=== PATIENT | male | born 1960 | race Caucasian/White ===

== ENCOUNTER 2017-11-25 17:59 | Emergency (ER) | payer MEDICAID ==
[~2017-11-25] VITALS: Ht 188 cm; Wt 66.7 kg
[2017-11-25] MEDS ORDERED: OLAN5TAB5 PO (19:15)
[2017-11-25] MEDS ORDERED: ESCI5TAB PO (19:16)
[2017-11-25] MEDS ORDERED: FLUP1TAB PO (19:17)
[2017-11-25] MEDS ORDERED: LORA0.5T PO (19:19)
[2017-11-25 20:34] LABS: BASOPHILS % (AUTO) 0.4 % (0-1); EOSINOPHILS # (AUTO) 0.1 X10'3 (0-0.9); EOSINOPHILS % (AUTO) 2.1 % (0-6); HEMOGLOBIN 14.2 g/dl (14.0-17.9); LYMPHOCYTES # (AUTO) 0.8 X10'3 (1.1-4.8); LYMPHOCYTES % (AUTO) 11.1 % (21-51); MEAN CORPUSCULAR HEMOGLOBIN 31.6 PG (27.0-31.0); MEAN CORPUSCULAR HGB CONC 34.7 % (33.0-36.5); MONOCYTES # (AUTO) 0.5 X10'3 (0-0.9); MONOCYTES % (AUTO) 6.6 % (2-12); NEUTROPHILS # (AUTO) 5.4 X10'3 (1.8-7.7); NEUTROPHILS % (AUTO) 79.8 % (42-75); PLATELET COUNT 242 X10'3 (140-440); RED CELL DISTRIBUTION WIDTH 14.6 % (11.5-14.5); WHITE BLOOD COUNT 6.8 X10'3 (4.5-11.0)
[2017-11-25 20:47] LABS: ALANINE AMINOTRANSFERASE 53 U/L (12-78); ALBUMIN 3.4 G/DL (3.4-5.0); ALKALINE PHOSPHATASE 77 IU/L (46-116); ANION GAP 7 (8-16); ASPARTATE AMINO TRANSFERASE 34 U/L (10-37); BILIRUBIN,TOTAL 0.7 MG/DL (0.1-1.0); BLOOD UREA NITROGEN 18 MG/DL (7-18); BUN/CREATININE RATIO 15.9 (5.4-32.0); CALCIUM 9.1 MG/DL (8.5-10.1); CHLORIDE 104 MMOL/L (99-107); CREATININE 1.13 MG/DL (0.60-1.10); GLUCOSE 160 MG/DL (70-104); POTASSIUM 4.4 MMOL/L (3.5-5.1); SODIUM 143 MMOL/L (135-145); TOTAL CARBON DIOXIDE 31.8 MMOL/L (24-32); TOTAL PROTEIN 6.8 G/DL (6.4-8.2); eGFR 66 ML/MIN
[2017-11-25 20:55] LABS: ETHANOL < 0.010 GM/DL (0.0-0.010)
[2017-11-25] MEDS ORDERED: LORazepam 2 mg/ml vial IM ONE (21:40)
[2017-11-26 11:28] LABS: URINE AMPHETAMINE SCREEN NEGATIVE (Neg); URINE BARBITUATE SCREEN NEGATIVE (Neg); URINE BENZODIAZEPINES SCREEN NEGATIVE (Neg); URINE CANNABINOID SCREEN NEGATIVE (Neg); URINE COCAINE SCREEN NEGATIVE (Neg); URINE METHADONE SCREEN NEGATIVE (Neg); URINE OPIATE SCREEN NEGATIVE (Neg); URINE PHENCYCLIDINE SCREEN NEGATIVE (Neg)
[2017-11-26] MEDS ORDERED: LORazepam 2 mg/ml vial IM ONE ×2 (11:45→18:40)
[2017-11-26 13:04] LABS: CLARITY,URINE CLEAR (Clear); COLOR,URINE YELLOW (Yellow); GLUCOSE, URINE NEGATIVE (Neg); KETONES,URINE 15 mg/dl (Neg); LEUKOCYTE ESTERASE ,URINE NEGATIVE (Neg); NITRITES, URINE NEGATIVE (Neg); OCCULT BLOOD,URINE NEGATIVE (Neg); PH,URINE 5.5 (4.8-8.0); PROTEIN,URINE NEGATIVE (Neg); UROBILINOGEN,URINE 0.2 E.U/dL (0.2-1.0)
[2017-11-26 13:09] LABS: UA COLLECTION TYPE VOIDED
[2017-11-26 20:29] LABS: CKMB RELATIVE INDEX 12.4 RATIO (0-2.5)
[2017-11-27] MEDS ORDERED: normal saline 1000ML IV soln IVB ONE (10:50)
[2017-11-27] MEDS: normal saline 1000ml 1,000 ML IV SCH ×3 (13:59→21:10)
[2017-11-27] MEDS ORDERED: LORazepam 0.5 MG tablet PO PRN (17:15)
[2017-11-27 18:07] LABS: CLARITY,URINE SLIGHTLY CLOUDY (Clear); COLOR,URINE YELLOW (Yellow); GLUCOSE, URINE NEGATIVE (Neg); KETONES,URINE NEGATIVE (Neg); LEUKOCYTE ESTERASE ,URINE NEGATIVE (Neg); NITRITES, URINE NEGATIVE (Neg); OCCULT BLOOD,URINE SMALL (Neg); PROTEIN,URINE NEGATIVE (Neg); UA COLLECTION TYPE STRAIGHT CATH; UROBILINOGEN,URINE 0.2 E.U/dL (0.2-1.0)
[2017-11-27 18:19] LABS: MUCUS STRANDS MANY /LPF (Neg); SQUAMOUS EPITHELIAL CELL,UR FEW /LPF (FEW)
[2017-11-27 18:20] LABS: BACTERIA,URINE FEW /HPF (Neg); CAL OXALATE CRYSTALS 1+ /HPF (NEGATIVE); WBC CLUMPS,URINE FEW /HPF (NEGATIVE); WBC,URINE 0-4 /HPF (0-4)
[2017-11-27] MEDS: FLUPHENAZINE PO SCH (21:00)
[2017-11-28] MEDS: normal saline 1000ml 1,000 ML IV SCH ×3 (00:16→12:10)
[2017-11-28] MEDS ORDERED: citalopram 20mg tablet PO SCH (07:30)
[2017-11-28] MEDS: OLANZapine 5mg rapidly disint. tablet PO SCH (07:49)
[2017-11-28] MEDS: citalopram 20mg tablet PO SCH (07:49)
[2017-11-28] MEDS ORDERED: OLANZapine 5mg rapidly disint. tablet PO SCH (08:00)
[2017-11-28] MEDS: FLUPHENAZINE PO SCH (21:00)
[2017-11-29] MEDS: OLANZapine 5mg rapidly disint. tablet PO SCH (08:43)
[2017-11-29] MEDS: citalopram 20mg tablet PO SCH ×2 (08:55→09:01)
[2017-11-29] MEDS: LORazepam 0.5 MG tablet PO PRN (10:04)
[2017-11-30] MEDS: OLANZapine 5mg rapidly disint. tablet PO SCH (08:55)
[2017-11-30] MEDS: citalopram 20mg tablet PO SCH (08:55)
[2017-12-01] MEDS: OLANZapine 5mg rapidly disint. tablet PO SCH (08:51)
[2017-12-01] MEDS: citalopram 20mg tablet PO SCH (08:51)
[2017-12-02] MEDS: LORazepam 0.5 MG tablet PO PRN (08:29)
[2017-12-02] MEDS: citalopram 20mg tablet PO SCH (08:29)
[2017-12-03] MEDS: citalopram 20mg tablet PO SCH (07:30)
[2017-12-04 12:21] LABS: BASOPHILS % (AUTO) 0.3 % (0-1); EOSINOPHILS # (AUTO) 0.1 X10'3 (0-0.9); EOSINOPHILS % (AUTO) 2.3 % (0-6); HEMATOCRIT 46.4 % (42.0-52.0); HEMOGLOBIN 15.8 g/dl (14.0-17.9); LYMPHOCYTES % (AUTO) 19.2 % (21-51); MEAN CORPUSCULAR HGB CONC 33.9 % (33.0-36.5); MEAN CORPUSCULAR VOLUME 91.5 FL (78-98); MEAN PLATELET VOLUME 8.1 FL (7.4-10.4); MONOCYTES # (AUTO) 0.3 X10'3 (0-0.9); MONOCYTES % (AUTO) 5.4 % (2-12); NEUTROPHILS # (AUTO) 3.7 X10'3 (1.8-7.7); NEUTROPHILS % (AUTO) 72.8 % (42-75); PLATELET COUNT 258 X10'3 (140-440); RED BLOOD COUNT 5.08 X10'6 (4.70-6.10); WHITE BLOOD COUNT 5.1 X10'3 (4.5-11.0)
[2017-12-04 13:11] LABS: ALANINE AMINOTRANSFERASE 36 U/L (12-78); ALBUMIN 3.2 G/DL (3.4-5.0); ALBUMIN/GLOBULIN RATIO 1.1 (1.1-1.5); ALKALINE PHOSPHATASE 71 IU/L (46-116); ANION GAP 7 (8-16); ASPARTATE AMINO TRANSFERASE 24 U/L (10-37); BILIRUBIN,TOTAL 0.6 MG/DL (0.1-1.0); BLOOD UREA NITROGEN 12 MG/DL (7-18); BUN/CREATININE RATIO 12.4 (5.4-32.0); CALCIUM 8.9 MG/DL (8.5-10.1); CHLORIDE 106 MMOL/L (99-107); CREATININE 0.97 MG/DL (0.60-1.10); GLUCOSE 106 MG/DL (70-104); POTASSIUM 3.7 MMOL/L (3.5-5.1); SODIUM 143 MMOL/L (135-145); TOTAL CARBON DIOXIDE 30.2 MMOL/L (24-32); TOTAL PROTEIN 6.2 G/DL (6.4-8.2); eGFR 79 ML/MIN
[2017-12-04] MEDS ORDERED: LORazepam 2 mg/ml vial ONE (14:14)
[2017-12-04] MEDS ORDERED: normal saline 1000ml 1,000 ML IV ONE (15:50)
[2017-12-05] MEDS ORDERED: thiamine 100mg tablet PO ONE (08:10)
[2017-12-05] MEDS ORDERED: folic acid 1mg tablet PO ONE (08:10)
[2017-12-05] MEDS ORDERED: gadopentetate dimeglumine 7.5 MMOL/15 ML syringe ONE (13:59)
[2017-12-06] MEDS ORDERED: magnesium hydroxide 30ml (MOM) UD suspension PO ONE (02:00)
[2017-12-06] MEDS: LORazepam 2 mg/ml vial IV SCH ×4 (03:56→21:37)
[2017-12-06] MEDS ORDERED: thiamine 100mg tablet PO ONE (08:00)
[2017-12-06] MEDS ORDERED: folic acid 1mg tablet PO ONE (08:00)
[2017-12-07] MEDS: LORazepam 2 mg/ml vial IV SCH (08:00)
[2017-12-07] MEDS ORDERED: normal saline 1000ml 1,000 ML IV ONE (08:08)
[2017-12-07] MEDS ORDERED: normal saline 1000ML IV soln IVB ONE (08:10)
[2017-12-07] MEDS ORDERED: bisacodyl 10mg suppository rectal RC STA (09:45)
[2017-12-07 13:10] LABS: HEMATOCRIT 42.7 % (42.0-52.0); HEMOGLOBIN 14.8 g/dl (14.0-17.9); LYMPHOCYTES % (AUTO) 16.1 % (21-51); MEAN CORPUSCULAR HEMOGLOBIN 31.1 PG (27.0-31.0); MEAN CORPUSCULAR HGB CONC 34.6 % (33.0-36.5); MEAN CORPUSCULAR VOLUME 89.9 FL (78-98); MEAN PLATELET VOLUME 8.2 FL (7.4-10.4); MONOCYTES % (AUTO) 5.5 % (2-12); NEUTROPHILS % (AUTO) 76.9 % (42-75); PLATELET COUNT 219 X10'3 (140-440); RED BLOOD COUNT 4.74 X10'6 (4.70-6.10); RED CELL DISTRIBUTION WIDTH 14.9 % (11.5-14.5); WHITE BLOOD COUNT 5.1 X10'3 (4.5-11.0)
[2017-12-07 13:11] LABS: BASOPHILS % (AUTO) 0.1 % (0-1); EOSINOPHILS # (AUTO) 0.1 X10'3 (0-0.9); EOSINOPHILS % (AUTO) 1.4 % (0-6); LYMPHOCYTES # (AUTO) 0.8 X10'3 (1.1-4.8); MONOCYTES # (AUTO) 0.3 X10'3 (0-0.9); NEUTROPHILS # (AUTO) 3.9 X10'3 (1.8-7.7)
[2017-12-07 13:26] LABS: ALANINE AMINOTRANSFERASE 36 U/L (12-78); ALBUMIN 3.8 G/DL (3.4-5.0); ALBUMIN/GLOBULIN RATIO 1.2 (1.1-1.5); ALKALINE PHOSPHATASE 84 IU/L (46-116); ANION GAP 10 (8-16); ASPARTATE AMINO TRANSFERASE 28 U/L (10-37); BILIRUBIN,TOTAL 0.9 MG/DL (0.1-1.0); BLOOD UREA NITROGEN 16 MG/DL (7-18); BUN/CREATININE RATIO 18.8 (5.4-32.0); CALCIUM 9.2 MG/DL (8.5-10.1); CHLORIDE 104 MMOL/L (99-107); CREATININE 0.85 MG/DL (0.60-1.10); GLUCOSE 84 MG/DL (70-104); POTASSIUM 4.4 MMOL/L (3.5-5.1); SODIUM 142 MMOL/L (135-145); TOTAL CARBON DIOXIDE 28.1 MMOL/L (24-32); TOTAL PROTEIN 7.1 G/DL (6.4-8.2); eGFR > 90 ML/MIN
[2017-12-07 15:17] LABS: URINE AMPHETAMINE SCREEN NEGATIVE (Neg); URINE BARBITUATE SCREEN NEGATIVE (Neg); URINE BENZODIAZEPINES SCREEN NEGATIVE (Neg); URINE CANNABINOID SCREEN NEGATIVE (Neg); URINE COCAINE SCREEN NEGATIVE (Neg); URINE METHADONE SCREEN NEGATIVE (Neg); URINE OPIATE SCREEN NEGATIVE (Neg); URINE PHENCYCLIDINE SCREEN NEGATIVE (Neg)
[2017-12-09] MEDS: tobramycin 0.3% 5ml ophthalmic drops LEFTEYE SCH ×4 (08:35→20:00)
[2017-12-09] MEDS: LORazepam 0.5 MG tablet PO PRN (09:03)
[2017-12-10] MEDS: tobramycin 0.3% 5ml ophthalmic drops LEFTEYE SCH ×6 (00:17→20:21)
[2017-12-10 01:21] LABS: BASOPHILS % (AUTO) 0.5 % (0-1); EOSINOPHILS # (AUTO) 0.1 X10'3 (0-0.9); EOSINOPHILS % (AUTO) 2.2 % (0-6); HEMATOCRIT 42.1 % (42.0-52.0); LYMPHOCYTES # (AUTO) 1.1 X10'3 (1.1-4.8); LYMPHOCYTES % (AUTO) 16.8 % (21-51); MEAN CORPUSCULAR HEMOGLOBIN 30.4 PG (27.0-31.0); MEAN CORPUSCULAR HGB CONC 33.3 % (33.0-36.5); MEAN CORPUSCULAR VOLUME 91.2 FL (78-98); MEAN PLATELET VOLUME 8.7 FL (7.4-10.4); MONOCYTES # (AUTO) 0.5 X10'3 (0-0.9); MONOCYTES % (AUTO) 8.1 % (2-12); NEUTROPHILS # (AUTO) 4.6 X10'3 (1.8-7.7); NEUTROPHILS % (AUTO) 72.4 % (42-75); PLATELET COUNT 237 X10'3 (140-440); RED BLOOD COUNT 4.61 X10'6 (4.70-6.10); RED CELL DISTRIBUTION WIDTH 14.1 % (11.5-14.5); WHITE BLOOD COUNT 6.3 X10'3 (4.5-11.0)
[2017-12-10 01:23] LABS: CLARITY,URINE CLEAR (Clear); COLOR,URINE YELLOW (Yellow); GLUCOSE, URINE NEGATIVE (Neg); KETONES,URINE >=80 mg/dl (Neg); LEUKOCYTE ESTERASE ,URINE NEGATIVE (Neg); NITRITES, URINE NEGATIVE (Neg); OCCULT BLOOD,URINE SMALL (Neg); PROTEIN,URINE NEGATIVE (Neg); UROBILINOGEN,URINE 0.2 E.U/dL (0.2-1.0)
[2017-12-10 01:25] LABS: UA COLLECTION TYPE OTHER
[2017-12-10 01:31] LABS: BACTERIA,URINE FEW /HPF (Neg); MUCUS STRANDS MODERATE /LPF (Neg); SQUAMOUS EPITHELIAL CELL,UR FEW /LPF (FEW)
[2017-12-10 01:32] LABS: RBC,URINE 0-2 /HPF (0-2)
[2017-12-10] MEDS: ciprofloxacin 250mg tablet PO SCH ×3 (08:00→20:20)
[2017-12-10] MEDS: LORazepam 0.5 MG tablet PO PRN (09:29)
[2017-12-10] MEDS: acetaminophen 325mg tablet PO PRN (09:31)
[2017-12-10] MEDS: lactobacillus rhamnosus 10,000 MMU CELLS/CAPSULE PO SCH (20:20)
[2017-12-11] MEDS: tobramycin 0.3% 5ml ophthalmic drops LEFTEYE SCH ×6 (04:20→20:47)
[2017-12-11] MEDS: Protein Shake (high protein) 240ml (8oz) cup PO SCH ×3 (08:00→18:00)
[2017-12-11] MEDS: ciprofloxacin 250mg tablet PO SCH ×3 (08:30→20:47)
[2017-12-11] MEDS: LORazepam 0.5 MG tablet PO PRN ×2 (08:30→14:01)
[2017-12-11] MEDS: lactobacillus rhamnosus 10,000 MMU CELLS/CAPSULE PO SCH ×3 (08:30→20:47)
[2017-12-11] MEDS: nystatin 500,000 unit/5ML UD oral suspension PO SCH (22:04)
[2017-12-12] MEDS: tobramycin 0.3% 5ml ophthalmic drops LEFTEYE SCH ×6 (03:37→20:49)
[2017-12-12] MEDS ORDERED: LORazepam 2 mg/ml vial IM ONE (04:15)
[2017-12-12] MEDS: ciprofloxacin 250mg tablet PO SCH ×2 (12:55→20:00)
[2017-12-12] MEDS: nystatin 500,000 unit/5ML UD oral suspension PO SCH ×3 (12:55→20:49)
[2017-12-12] MEDS: lactobacillus rhamnosus 10,000 MMU CELLS/CAPSULE PO SCH ×2 (12:55→20:00)
[2017-12-12] MEDS: Protein Shake (high protein) 240ml (8oz) cup PO SCH ×3 (12:56→18:00)
[2017-12-12 23:33] LABS: BASOPHILS % (AUTO) 0.7 % (0-1); EOSINOPHILS # (AUTO) 0.1 X10'3 (0-0.9); EOSINOPHILS % (AUTO) 1.5 % (0-6); HEMATOCRIT 43.5 % (42.0-52.0); HEMOGLOBIN 14.9 g/dl (14.0-17.9); LYMPHOCYTES # (AUTO) 1.3 X10'3 (1.1-4.8); LYMPHOCYTES % (AUTO) 18.3 % (21-51); MEAN CORPUSCULAR HEMOGLOBIN 31.2 PG (27.0-31.0); MEAN CORPUSCULAR HGB CONC 34.4 % (33.0-36.5); MEAN CORPUSCULAR VOLUME 90.7 FL (78-98); MEAN PLATELET VOLUME 8.1 FL (7.4-10.4); MONOCYTES # (AUTO) 0.5 X10'3 (0-0.9); MONOCYTES % (AUTO) 7.2 % (2-12); NEUTROPHILS # (AUTO) 5.2 X10'3 (1.8-7.7); NEUTROPHILS % (AUTO) 72.3 % (42-75); PLATELET COUNT 217 X10'3 (140-440); RED BLOOD COUNT 4.79 X10'6 (4.70-6.10); RED CELL DISTRIBUTION WIDTH 14.8 % (11.5-14.5); WHITE BLOOD COUNT 7.2 X10'3 (4.5-11.0)
[2017-12-12 23:45] LABS: ALANINE AMINOTRANSFERASE 36 U/L (12-78); ALBUMIN 3.8 G/DL (3.4-5.0); ALBUMIN/GLOBULIN RATIO 1.2 (1.1-1.5); ALKALINE PHOSPHATASE 74 IU/L (46-116); ANION GAP 12 (8-16); ASPARTATE AMINO TRANSFERASE 34 U/L (10-37); BILIRUBIN,TOTAL 0.8 MG/DL (0.1-1.0); BLOOD UREA NITROGEN 21 MG/DL (7-18); BUN/CREATININE RATIO 21.4 (5.4-32.0); CALCIUM 9.3 MG/DL (8.5-10.1); CHLORIDE 104 MMOL/L (99-107); CREATININE 0.98 MG/DL (0.60-1.10); GLUCOSE 89 MG/DL (70-104); POTASSIUM 3.7 MMOL/L (3.5-5.1); SODIUM 144 MMOL/L (135-145); TOTAL CARBON DIOXIDE 28.3 MMOL/L (24-32); TOTAL PROTEIN 6.9 G/DL (6.4-8.2); eGFR 78 ML/MIN
[2017-12-13] MEDS: tobramycin 0.3% 5ml ophthalmic drops LEFTEYE SCH ×6 (00:05→20:00)
[2017-12-13] MEDS ORDERED: Potassium Cl inj 20 MEQ in dextrose 5%-1/2 normal saline 1,000 ML IV ONE (00:28)
[2017-12-13] MEDS: potassium CL 20mEq in D5-1/2NS 1,000 ML IV SCH ×2 (01:56→16:08)
[2017-12-13] MEDS ORDERED: thiamine 100mg/ml 2ml inj. IV STA (12:46)
[2017-12-13] MEDS: nystatin 500,000 unit/5ML UD oral suspension PO SCH ×3 (13:00→21:16)
[2017-12-13] MEDS: Protein Shake (high protein) 240ml (8oz) cup PO SCH ×3 (13:00→18:00)
[2017-12-13] MEDS: ciprofloxacin 250mg tablet PO SCH ×2 (14:14→20:00)
[2017-12-13] MEDS: lactobacillus rhamnosus 10,000 MMU CELLS/CAPSULE PO SCH ×2 (14:16→20:00)
[2017-12-13] MEDS ORDERED: folic acid 1mg/0.2ml inj IV ONE ×2 (16:00→17:00)
[2017-12-13] MEDS ORDERED: folic acid 1mg/0.2ml inj IV SCH (16:00)
[2017-12-13] MEDS ORDERED: LIDOcaine 1.5% w/epinephrine 1:200,000 5ml ampul SQ ONE (20:25)
[2017-12-13] MEDS: thiamine 100mg/ml 2ml inj. IV SCH (21:16)
[2017-12-13 22:29] LABS: APPEARANCE,CSF CLEAR; CSF SUPERNATANT COLOR COLORLESS; CSF VOLUME 15 ML; TUBE# COUNTED 1
[2017-12-13 22:30] LABS: CSF RBC 0 /CU MM (0)
[2017-12-13 22:32] LABS: CSF WBC CT 4 /CU MM (0-5)
[2017-12-13 22:34] LABS: APPEARANCE,CSF CLEAR; CSF RBC 0 /CU MM (0); CSF SUPERNATANT COLOR COLORLESS; CSF VOLUME 15 ML; TUBE# COUNTED 4
[2017-12-13 22:48] LABS: GLUCOSE,CSF 77 MG/DL (40-75); TOTAL PROTEIN,CSF 98 MG/DL (15-45)
[2017-12-13 22:54] LABS: CSF WBC CT 8 /CU MM (0-5)
[2017-12-14] MEDS ORDERED: diphenhydrAMINE 50 mg/ml inj IV ONE (02:05)
[2017-12-14] MEDS: potassium CL 20mEq in D5-1/2NS 1,000 ML IV SCH ×2 (02:23→15:00)
[2017-12-14] MEDS: tobramycin 0.3% 5ml ophthalmic drops LEFTEYE SCH ×7 (04:00→23:50)
[2017-12-14 07:12] LABS: HIV ANTIBODY 1&2 RAPID NON-REACTIVE (Neg)
[2017-12-14] MEDS: Protein Shake (high protein) 240ml (8oz) cup PO SCH ×3 (08:00→18:00)
[2017-12-14] MEDS: folic acid 1mg/0.2ml inj IV SCH (08:51)
[2017-12-14] MEDS: thiamine 100mg/ml 2ml inj. IV SCH ×2 (08:51→20:51)
[2017-12-14] MEDS: nystatin 500,000 unit/5ML UD oral suspension PO SCH ×3 (09:03→20:50)
[2017-12-14] MEDS ORDERED: folic acid 1mg/0.2ml inj IV ONE (13:00)
[2017-12-14] MEDS ORDERED: bisacodyl 10mg suppository rectal RC ONE (22:30)
[2017-12-15] MEDS: potassium CL 20mEq in D5-1/2NS 1,000 ML IV SCH ×2 (03:06→15:47)
[2017-12-15] MEDS: tobramycin 0.3% 5ml ophthalmic drops LEFTEYE SCH ×5 (03:46→20:59)
[2017-12-15] MEDS: Protein Shake (high protein) 240ml (8oz) cup PO SCH ×3 (08:00→19:47)
[2017-12-15] MEDS: nystatin 500,000 unit/5ML UD oral suspension PO SCH ×3 (09:25→21:00)
[2017-12-15] MEDS: folic acid 1mg/0.2ml inj IV SCH (09:26)
[2017-12-15] MEDS: thiamine 100mg/ml 2ml inj. IV SCH ×2 (09:26→21:22)
[2017-12-15] MEDS ORDERED: diphenhydrAMINE 50 mg/ml inj IV STA (22:29)
[2017-12-15] MEDS ORDERED: diphenhydrAMINE 50 mg/ml inj IV ONE (22:45)
[2017-12-15] MEDS ORDERED: QUEtiapine 25mg tablet PO ONE (23:41)
[2017-12-16] MEDS: potassium CL 20mEq in D5-1/2NS 1,000 ML IV SCH ×2 (03:40→16:41)
[2017-12-16] MEDS: tobramycin 0.3% 5ml ophthalmic drops LEFTEYE SCH ×6 (04:02→20:00)
[2017-12-16] MEDS ORDERED: dextrose 5%-normal saline 1,000 ML IV ONE (04:40)
[2017-12-16] MEDS: Protein Shake (high protein) 240ml (8oz) cup PO SCH ×3 (08:00→18:00)
[2017-12-16] MEDS: folic acid 1mg/0.2ml inj IV SCH (09:34)
[2017-12-16] MEDS: nystatin 500,000 unit/5ML UD oral suspension PO SCH ×3 (09:34→22:11)
[2017-12-16] MEDS: thiamine 100mg/ml 2ml inj. IV SCH ×2 (09:34→22:24)
[2017-12-16] MEDS ORDERED: acetaminophen 325mg tablet PO ONE (10:15)
[2017-12-16] MEDS ORDERED: diphenhydrAMINE 50 mg/ml inj IV ONE (14:25)
[2017-12-16] MEDS ORDERED: nicotine prolacrilex 2mg gum BC PRN (21:10)
[2017-12-16] MEDS ORDERED: nicotine prolacrilex 4mg gum BC PRN (21:10)
[2017-12-17] MEDS: tobramycin 0.3% 5ml ophthalmic drops LEFTEYE SCH ×6 (00:42→21:17)
[2017-12-17 00:47] LABS: ALBUMIN 3.5 G/DL (3.4-5.0); ANION GAP 6 (8-16); BLOOD UREA NITROGEN 6 MG/DL (7-18); BUN/CREATININE RATIO 7.1 (5.4-32.0); CALCIUM 9.1 MG/DL (8.5-10.1); CHLORIDE 105 MMOL/L (99-107); CREATININE 0.85 MG/DL (0.60-1.10); GLUCOSE 96 MG/DL (70-104); POTASSIUM 4.2 MMOL/L (3.5-5.1); SODIUM 142 MMOL/L (135-145); TOTAL CARBON DIOXIDE 30.9 MMOL/L (24-32); eGFR > 90 ML/MIN
[2017-12-17 01:00] LABS: BASOPHILS # (AUTO) 0.1 X10'3 (0-0.2); BASOPHILS % (AUTO) 0.9 % (0-1); EOSINOPHILS # (AUTO) 0.3 X10'3 (0-0.9); EOSINOPHILS % (AUTO) 4.2 % (0-6); HEMATOCRIT 42.6 % (42.0-52.0); HEMOGLOBIN 14.1 g/dl (14.0-17.9); LYMPHOCYTES # (AUTO) 1.5 X10'3 (1.1-4.8); LYMPHOCYTES % (AUTO) 24.7 % (21-51); MEAN CORPUSCULAR HEMOGLOBIN 30.4 PG (27.0-31.0); MEAN CORPUSCULAR HGB CONC 33.1 % (33.0-36.5); MEAN CORPUSCULAR VOLUME 91.7 FL (78-98); MEAN PLATELET VOLUME 9.2 FL (7.4-10.4); MONOCYTES # (AUTO) 0.5 X10'3 (0-0.9); MONOCYTES % (AUTO) 7.6 % (2-12); NEUTROPHILS # (AUTO) 3.6 X10'3 (1.8-7.7); NEUTROPHILS % (AUTO) 62.6 % (42-75); PLATELET COUNT 198 X10'3 (140-440); RED BLOOD COUNT 4.64 X10'6 (4.70-6.10)
[2017-12-17 02:14] LABS: PLATELET ESTIMATE NORMAL; TOTAL CELLS COUNTED 100
[2017-12-17 06:03] LABS: RPR Reactive (Non Reactive)
[2017-12-17] MEDS: potassium CL 20mEq in D5-1/2NS 1,000 ML IV SCH ×2 (08:07→20:47)
[2017-12-17] MEDS: thiamine 100mg/ml 2ml inj. IV SCH ×2 (08:21→21:16)
[2017-12-17] MEDS: folic acid 1mg/0.2ml inj IV SCH (08:22)
[2017-12-17] MEDS: nystatin 500,000 unit/5ML UD oral suspension PO SCH ×3 (08:23→21:16)
[2017-12-17] MEDS: acetaminophen 325mg tablet PO PRN ×2 (08:23→13:28)
[2017-12-17] MEDS: Protein Shake (high protein) 240ml (8oz) cup PO SCH ×3 (08:24→18:00)
[2017-12-18] MEDS: tobramycin 0.3% 5ml ophthalmic drops LEFTEYE SCH ×6 (00:33→20:52)
[2017-12-18 08:30] LABS: RPR Non Reactive (Non Reactive)
[2017-12-18] MEDS: thiamine 100mg/ml 2ml inj. IV SCH ×2 (08:49→20:52)
[2017-12-18] MEDS: folic acid 1mg/0.2ml inj IV SCH (08:50)
[2017-12-18] MEDS: potassium CL 20mEq in D5-1/2NS 1,000 ML IV SCH ×2 (09:10→22:15)
[2017-12-18] MEDS: Protein Shake (high protein) 240ml (8oz) cup PO SCH ×3 (10:00→18:00)
[2017-12-18] MEDS: nystatin 500,000 unit/5ML UD oral suspension PO SCH ×3 (10:36→20:51)
[2017-12-19] MEDS: tobramycin 0.3% 5ml ophthalmic drops LEFTEYE SCH ×7 (04:00→23:09)
[2017-12-19 07:12] LABS: D-DIMER 1.31 MG/L FEU (0-0.50)
[2017-12-19] MEDS ORDERED: normal saline 1000ml 1,000 ML IV ONE (07:35)
[2017-12-19] MEDS ORDERED: iohexol 350MG/ML 100ml bottle IV ONE (07:49)
[2017-12-19] MEDS: Protein Shake (high protein) 240ml (8oz) cup PO SCH ×3 (08:00→18:42)
[2017-12-19] MEDS ORDERED: LORazepam 2 mg/ml vial IV ONE (08:05)
[2017-12-19] MEDS: thiamine 100mg/ml 2ml inj. IV SCH ×2 (10:18→19:55)
[2017-12-19] MEDS: nystatin 500,000 unit/5ML UD oral suspension PO SCH ×3 (10:19→23:08)
[2017-12-19] MEDS: potassium CL 20mEq in D5-1/2NS 1,000 ML IV SCH ×2 (10:25→19:46)
[2017-12-19] MEDS: folic acid 1mg/0.2ml inj IV SCH (11:01)
[2017-12-20] MEDS: tobramycin 0.3% 5ml ophthalmic drops LEFTEYE SCH ×5 (04:10→21:25)
[2017-12-20] MEDS: potassium CL 20mEq in D5-1/2NS 1,000 ML IV SCH ×2 (07:40→20:10)
[2017-12-20] MEDS: thiamine 100mg/ml 2ml inj. IV SCH ×2 (07:58→21:25)
[2017-12-20] MEDS: nystatin 500,000 unit/5ML UD oral suspension PO SCH ×2 (07:58→14:03)
[2017-12-20] MEDS: folic acid 1mg/0.2ml inj IV SCH (07:59)
[2017-12-20] MEDS: Protein Shake (high protein) 240ml (8oz) cup PO SCH ×4 (08:00→20:10)
[2017-12-20] MEDS ORDERED: bisacodyl 5mg tablet.DR PO ONE (09:30)
[2017-12-20] MEDS: acetaminophen 325mg tablet PO PRN (15:34)
[2017-12-21] MEDS: tobramycin 0.3% 5ml ophthalmic drops LEFTEYE SCH ×3 (00:30→07:54)
[2017-12-21] MEDS: Protein Shake (high protein) 240ml (8oz) cup PO SCH (07:51)
[2017-12-21] MEDS: thiamine 100mg/ml 2ml inj. IV SCH ×2 (07:52→20:15)
[2017-12-21] MEDS: folic acid 1mg/0.2ml inj IV SCH (07:53)
[2017-12-21] MEDS ORDERED: haloperidol 5mg tablet PO ONE (08:15)
[2017-12-21] MEDS: potassium CL 20mEq in D5-1/2NS 1,000 ML IV SCH ×2 (09:14→21:14)
[2017-12-22] MEDS: Protein Shake (high protein) 240ml (8oz) cup PO SCH ×3 (08:13→18:00)
[2017-12-22] MEDS: thiamine 100mg tablet PO SCH ×2 (08:16→20:55)
[2017-12-22] MEDS: folic acid 1mg tablet PO SCH ×2 (08:16→20:55)
[2017-12-22] MEDS: potassium CL 20mEq in D5-1/2NS 1,000 ML IV SCH ×2 (10:13→23:35)
[2017-12-23] MEDS: thiamine 100mg tablet PO SCH ×2 (08:00→20:00)
[2017-12-23] MEDS: folic acid 1mg tablet PO SCH ×2 (08:00→20:00)
[2017-12-23] MEDS: Protein Shake (high protein) 240ml (8oz) cup PO SCH ×3 (08:00→18:47)
[2017-12-23] MEDS: acetaminophen 325mg tablet PO PRN ×2 (09:07→16:56)
[2017-12-23] MEDS: potassium CL 20mEq in D5-1/2NS 1,000 ML IV SCH ×2 (10:40→16:55)
[2017-12-23] MEDS ORDERED: LORazepam 2 mg/ml vial IV ONE (20:45)
[2017-12-24] MEDS: potassium CL 20mEq in D5-1/2NS 1,000 ML IV SCH ×2 (06:39→19:17)
[2017-12-24] MEDS: thiamine 100mg tablet PO SCH ×2 (08:33→20:25)
[2017-12-24] MEDS: Protein Shake (high protein) 240ml (8oz) cup PO SCH ×3 (08:33→18:05)
[2017-12-24] MEDS: folic acid 1mg tablet PO SCH ×2 (08:33→20:25)
[2017-12-24] MEDS: docusate sodium 100mg/10ml UD cup PO SCH ×2 (12:14→20:25)
[2017-12-24] MEDS: acetaminophen 325mg/10.15ml oral unit dose solution PO PRN (12:15)
[2017-12-25] MEDS: folic acid 1mg tablet PO SCH ×2 (07:50→19:32)
[2017-12-25] MEDS: thiamine 100mg tablet PO SCH ×2 (07:50→19:32)
[2017-12-25] MEDS: potassium CL 20mEq in D5-1/2NS 1,000 ML IV SCH (07:54)
[2017-12-25] MEDS: docusate sodium 100mg/10ml UD cup PO SCH ×2 (07:55→19:32)
[2017-12-25] MEDS: Protein Shake (high protein) 240ml (8oz) cup PO SCH ×3 (08:00→18:00)
[2017-12-25] MEDS ORDERED: quetiapine 100mg tablet PO STA (22:58)
[2017-12-26] MEDS: potassium CL 20mEq in D5-1/2NS 1,000 ML IV SCH ×2 (01:08→13:57)
[2017-12-26] MEDS: Protein Shake (high protein) 240ml (8oz) cup PO SCH ×3 (09:00→18:29)
[2017-12-26] MEDS: docusate sodium 100mg/10ml UD cup PO SCH ×2 (09:32→20:32)
[2017-12-26] MEDS: thiamine 100mg tablet PO SCH ×2 (09:32→20:32)
[2017-12-26] MEDS: folic acid 1mg tablet PO SCH ×2 (09:32→20:32)
[2017-12-26] MEDS: OLANZapine 5mg rapidly disint. tablet PO SCH ×2 (14:44→20:33)
[2017-12-26] MEDS: quetiapine 100mg tablet PO SCH (20:33)
[2017-12-27] MEDS: potassium CL 20mEq in D5-1/2NS 1,000 ML IV SCH (02:19)
[2017-12-27] MEDS: Protein Shake (high protein) 240ml (8oz) cup PO SCH ×3 (08:00→18:00)
[2017-12-27] MEDS: OLANZapine 5mg rapidly disint. tablet PO SCH ×2 (11:43→21:22)
[2017-12-27] MEDS: thiamine 100mg tablet PO SCH ×2 (11:43→19:12)
[2017-12-27] MEDS: folic acid 1mg tablet PO SCH ×2 (11:43→19:12)
[2017-12-27] MEDS: docusate sodium 100mg/10ml UD cup PO SCH ×2 (12:09→19:11)
[2017-12-27] MEDS: quetiapine 100mg tablet PO SCH (21:22)
[2017-12-28] MEDS: Protein Shake (high protein) 240ml (8oz) cup PO SCH ×3 (08:00→18:41)
[2017-12-28] MEDS: acetaminophen 325mg tablet PO PRN (11:22)
[2017-12-28] MEDS: docusate sodium 100mg/10ml UD cup PO SCH ×2 (11:23→20:28)
[2017-12-28] MEDS: folic acid 1mg tablet PO SCH ×2 (11:23→20:28)
[2017-12-28] MEDS: OLANZapine 5mg rapidly disint. tablet PO SCH ×2 (11:23→20:27)
[2017-12-28] MEDS: thiamine 100mg tablet PO SCH ×2 (11:23→20:27)
[2017-12-28] MEDS: quetiapine 100mg tablet PO SCH (20:27)
[2017-12-29] MEDS: OLANZapine 5mg rapidly disint. tablet PO SCH ×2 (08:25→19:53)
[2017-12-29] MEDS: folic acid 1mg tablet PO SCH ×2 (08:25→19:53)
[2017-12-29] MEDS: thiamine 100mg tablet PO SCH ×2 (08:25→19:53)
[2017-12-29] MEDS: Protein Shake (high protein) 240ml (8oz) cup PO SCH ×3 (08:25→18:04)
[2017-12-29] MEDS: docusate sodium 100mg/10ml UD cup PO SCH ×2 (08:25→19:53)
[2017-12-29] MEDS: bisacodyl 10mg suppository rectal RC PRN (11:28)
[2017-12-29] MEDS: quetiapine 100mg tablet PO SCH (19:53)
[2017-12-30] MEDS: folic acid 1mg tablet PO SCH ×2 (08:42→20:06)
[2017-12-30] MEDS: Protein Shake (high protein) 240ml (8oz) cup PO SCH ×3 (08:42→18:21)
[2017-12-30] MEDS: thiamine 100mg tablet PO SCH ×2 (08:42→20:06)
[2017-12-30] MEDS: OLANZapine 5mg rapidly disint. tablet PO SCH ×2 (08:42→20:06)
[2017-12-30] MEDS: docusate sodium 100mg/10ml UD cup PO SCH ×2 (08:42→20:06)
[2017-12-30] MEDS: quetiapine 100mg tablet PO SCH (20:06)
[2017-12-31] MEDS: QUEtiapine 25mg tablet PO SCH (10:18)
[2017-12-31] MEDS: thiamine 100mg tablet PO SCH ×2 (10:19→21:14)
[2017-12-31] MEDS: folic acid 1mg tablet PO SCH ×2 (10:19→20:00)
[2017-12-31] MEDS: OLANZapine 5mg rapidly disint. tablet PO SCH ×2 (10:19→21:13)
[2017-12-31] MEDS: docusate sodium 100mg/10ml UD cup PO SCH ×2 (10:19→21:13)
[2017-12-31] MEDS: Protein Shake (high protein) 240ml (8oz) cup PO SCH ×3 (10:20→18:00)
[2017-12-31] MEDS: acetaminophen 325mg tablet PO PRN (21:13)
[2017-12-31] MEDS: quetiapine 100mg tablet PO SCH (21:13)
[2018-01-01] MEDS: folic acid 1mg tablet PO SCH ×2 (08:36→20:04)
[2018-01-01] MEDS: docusate sod 100mg capsule PO SCH ×2 (08:37→20:04)
[2018-01-01] MEDS: QUEtiapine 25mg tablet PO SCH (08:43)
[2018-01-01] MEDS: OLANZapine 5mg rapidly disint. tablet PO SCH ×2 (08:43→20:04)
[2018-01-01] MEDS: Protein Shake (high protein) 240ml (8oz) cup PO SCH ×3 (08:44→19:18)
[2018-01-01] MEDS: thiamine 100mg tablet PO SCH ×2 (08:44→20:04)
[2018-01-01] MEDS: haloperidol 5mg tablet PO SCH ×3 (09:15→21:00)
[2018-01-01] MEDS: quetiapine 100mg tablet PO SCH (20:05)
[2018-01-02] MEDS: Protein Shake (high protein) 240ml (8oz) cup PO SCH ×3 (08:00→18:47)
[2018-01-02] MEDS: docusate sod 100mg capsule PO SCH ×2 (08:58→21:55)
[2018-01-02] MEDS: thiamine 100mg tablet PO SCH ×2 (08:58→21:55)
[2018-01-02] MEDS: OLANZapine 5mg rapidly disint. tablet PO SCH ×2 (08:58→21:56)
[2018-01-02] MEDS: QUEtiapine 25mg tablet PO SCH (08:59)
[2018-01-02] MEDS: folic acid 1mg tablet PO SCH ×2 (08:59→20:00)
[2018-01-02] MEDS: quetiapine 100mg tablet PO SCH (21:56)
[2018-01-02] MEDS: haloperidol 5mg tablet PO SCH (21:56)
[2018-01-03] MEDS: thiamine 100mg tablet PO SCH ×2 (07:32→21:36)
[2018-01-03] MEDS: haloperidol 5mg tablet PO SCH ×2 (07:32→21:36)
[2018-01-03] MEDS: folic acid 1mg tablet PO SCH ×2 (07:32→21:36)
[2018-01-03] MEDS: QUEtiapine 25mg tablet PO SCH (07:33)
[2018-01-03] MEDS: OLANZapine 5mg rapidly disint. tablet PO SCH ×2 (07:33→21:37)
[2018-01-03] MEDS: docusate sod 100mg capsule PO SCH ×2 (07:34→21:36)
[2018-01-03] MEDS: Protein Shake (high protein) 240ml (8oz) cup PO SCH ×3 (08:00→18:26)
[2018-01-03] MEDS: quetiapine 100mg tablet PO SCH (21:36)
[2018-01-04] MEDS: docusate sod 100mg capsule PO SCH ×2 (08:45→20:16)
[2018-01-04] MEDS: thiamine 100mg tablet PO SCH ×2 (08:45→20:16)
[2018-01-04] MEDS: haloperidol 5mg tablet PO SCH ×2 (08:45→20:16)
[2018-01-04] MEDS: QUEtiapine 25mg tablet PO SCH (08:45)
[2018-01-04] MEDS: OLANZapine 5mg rapidly disint. tablet PO SCH ×2 (08:45→20:16)
[2018-01-04] MEDS: folic acid 1mg tablet PO SCH ×2 (08:45→20:16)
[2018-01-04] MEDS: Protein Shake (high protein) 240ml (8oz) cup PO SCH ×3 (08:46→18:30)
[2018-01-04] MEDS: quetiapine 100mg tablet PO SCH (20:16)
[2018-01-05] MEDS: OLANZapine 5mg rapidly disint. tablet PO SCH ×2 (08:41→20:14)
[2018-01-05] MEDS: folic acid 1mg tablet PO SCH ×2 (08:41→20:13)
[2018-01-05] MEDS: haloperidol 5mg tablet PO SCH ×2 (08:41→20:13)
[2018-01-05] MEDS: QUEtiapine 25mg tablet PO SCH (08:41)
[2018-01-05] MEDS: Protein Shake (high protein) 240ml (8oz) cup PO SCH ×3 (08:41→18:00)
[2018-01-05] MEDS: thiamine 100mg tablet PO SCH ×2 (08:41→20:13)
[2018-01-05] MEDS: docusate sod 100mg capsule PO SCH ×2 (08:41→20:13)
[2018-01-05] MEDS: quetiapine 100mg tablet PO SCH (20:14)
[2018-01-06] MEDS: QUEtiapine 25mg tablet PO SCH (11:56)
[2018-01-06] MEDS: OLANZapine 5mg rapidly disint. tablet PO SCH ×2 (11:56→20:09)
[2018-01-06] MEDS: docusate sod 100mg capsule PO SCH ×2 (11:56→20:09)
[2018-01-06] MEDS: folic acid 1mg tablet PO SCH ×2 (11:56→20:09)
[2018-01-06] MEDS: thiamine 100mg tablet PO SCH ×2 (11:56→20:09)
[2018-01-06] MEDS: haloperidol 5mg tablet PO SCH ×2 (11:57→20:09)
[2018-01-06] MEDS: Protein Shake (high protein) 240ml (8oz) cup PO SCH ×3 (12:38→18:00)
[2018-01-06] MEDS: quetiapine 100mg tablet PO SCH (20:09)
[2018-01-07] MEDS: Protein Shake (high protein) 240ml (8oz) cup PO SCH ×2 (09:00→18:00)
[2018-01-07] MEDS: OLANZapine 5mg rapidly disint. tablet PO SCH ×2 (09:15→20:02)
[2018-01-07] MEDS: haloperidol 5mg tablet PO SCH ×2 (09:15→20:01)
[2018-01-07] MEDS: thiamine 100mg tablet PO SCH ×2 (09:15→20:05)
[2018-01-07] MEDS: docusate sod 100mg capsule PO SCH ×2 (09:15→20:01)
[2018-01-07] MEDS: QUEtiapine 25mg tablet PO SCH (09:15)
[2018-01-07] MEDS: folic acid 1mg tablet PO SCH ×2 (09:16→20:01)
[2018-01-07] MEDS: quetiapine 100mg tablet PO SCH (20:01)
[2018-01-08] MEDS: QUEtiapine 25mg tablet PO SCH (08:40)
[2018-01-08] MEDS: OLANZapine 5mg rapidly disint. tablet PO SCH ×2 (08:40→20:33)
[2018-01-08] MEDS: thiamine 100mg tablet PO SCH ×2 (08:40→20:33)
[2018-01-08] MEDS: folic acid 1mg tablet PO SCH ×2 (08:40→20:33)
[2018-01-08] MEDS: docusate sod 100mg capsule PO SCH ×2 (08:40→20:33)
[2018-01-08] MEDS: haloperidol 5mg tablet PO SCH ×2 (08:40→20:34)
[2018-01-08] MEDS: Protein Shake (high protein) 240ml (8oz) cup PO SCH ×2 (08:41→19:00)
[2018-01-08] MEDS: quetiapine 100mg tablet PO SCH (20:33)
[2018-01-09] MEDS: docusate sod 100mg capsule PO SCH ×2 (08:46→22:50)
[2018-01-09] MEDS: thiamine 100mg tablet PO SCH ×2 (08:46→22:50)
[2018-01-09] MEDS: haloperidol 5mg tablet PO SCH ×2 (08:47→22:50)
[2018-01-09] MEDS: folic acid 1mg tablet PO SCH ×2 (08:47→22:50)
[2018-01-09] MEDS: OLANZapine 5mg rapidly disint. tablet PO SCH ×2 (08:47→22:50)
[2018-01-09] MEDS: QUEtiapine 25mg tablet PO SCH (08:47)
[2018-01-09] MEDS: Protein Shake (high protein) 240ml (8oz) cup PO SCH ×3 (08:48→18:00)
[2018-01-09] MEDS: acetaminophen 325mg/10.15ml oral unit dose solution PO PRN (08:53)
[2018-01-09] MEDS: quetiapine 100mg tablet PO SCH (22:50)
[2018-01-10] MEDS: QUEtiapine 25mg tablet PO SCH (08:11)
[2018-01-10] MEDS: haloperidol 5mg tablet PO SCH ×2 (08:11→20:40)
[2018-01-10] MEDS: thiamine 100mg tablet PO SCH ×2 (08:12→20:40)
[2018-01-10] MEDS: docusate sod 100mg capsule PO SCH ×2 (08:12→20:41)
[2018-01-10] MEDS: OLANZapine 5mg rapidly disint. tablet PO SCH ×2 (08:12→20:40)
[2018-01-10] MEDS: folic acid 1mg tablet PO SCH ×2 (08:12→20:40)
[2018-01-10] MEDS: Protein Shake (high protein) 240ml (8oz) cup PO SCH ×3 (08:15→22:27)
[2018-01-10] MEDS: quetiapine 100mg tablet PO SCH (20:40)
[2018-01-11] MEDS: thiamine 100mg tablet PO SCH ×2 (08:40→20:52)
[2018-01-11] MEDS: QUEtiapine 25mg tablet PO SCH (08:40)
[2018-01-11] MEDS: Protein Shake (high protein) 240ml (8oz) cup PO SCH ×3 (08:41→19:25)
[2018-01-11] MEDS: haloperidol 5mg tablet PO SCH ×2 (08:41→20:53)
[2018-01-11] MEDS: folic acid 1mg tablet PO SCH ×2 (08:41→20:52)
[2018-01-11] MEDS: docusate sod 100mg capsule PO SCH ×2 (08:41→20:53)
[2018-01-11] MEDS: OLANZapine 5mg rapidly disint. tablet PO SCH ×2 (08:41→20:53)
[2018-01-11] MEDS: quetiapine 100mg tablet PO SCH (20:52)
[2018-01-12] MEDS: Protein Shake (high protein) 240ml (8oz) cup PO SCH ×3 (08:00→18:01)
[2018-01-12] MEDS: thiamine 100mg tablet PO SCH ×2 (08:07→20:43)
[2018-01-12] MEDS: folic acid 1mg tablet PO SCH ×2 (08:07→20:43)
[2018-01-12] MEDS: docusate sod 100mg capsule PO SCH ×2 (08:08→20:43)
[2018-01-12] MEDS: OLANZapine 5mg rapidly disint. tablet PO SCH ×2 (08:08→15:07)
[2018-01-12] MEDS: haloperidol 5mg tablet PO SCH ×2 (20:42→20:43)
[2018-01-12] MEDS: quetiapine 100mg tablet PO SCH (20:43)
[2018-01-12] MEDS: QUEtiapine 25mg tablet PO SCH (20:43)
[2018-01-13] MEDS: thiamine 100mg tablet PO SCH ×2 (08:13→21:11)
[2018-01-13] MEDS: OLANZapine 5mg rapidly disint. tablet PO SCH ×2 (08:13→12:55)
[2018-01-13] MEDS: folic acid 1mg tablet PO SCH ×2 (08:13→21:11)
[2018-01-13] MEDS: docusate sod 100mg capsule PO SCH ×2 (08:13→21:10)
[2018-01-13] MEDS: Protein Shake (high protein) 240ml (8oz) cup PO SCH ×3 (08:15→18:39)
[2018-01-13] MEDS: haloperidol 5mg tablet PO SCH (21:10)
[2018-01-13] MEDS: QUEtiapine 25mg tablet PO SCH (21:11)
[2018-01-14] MEDS: Protein Shake (high protein) 240ml (8oz) cup PO SCH ×3 (08:00→20:43)
[2018-01-14] MEDS: docusate sod 100mg capsule PO SCH ×2 (08:54→20:43)
[2018-01-14] MEDS: OLANZapine 5mg rapidly disint. tablet PO SCH ×2 (08:54→13:42)
[2018-01-14] MEDS: thiamine 100mg tablet PO SCH ×2 (08:54→20:42)
[2018-01-14] MEDS: folic acid 1mg tablet PO SCH ×2 (08:54→20:42)
[2018-01-14] MEDS: haloperidol 5mg tablet PO SCH (20:33)
[2018-01-14] MEDS: QUEtiapine 25mg tablet PO SCH (20:43)
[2018-01-15] MEDS: folic acid 1mg tablet PO SCH ×2 (08:39→20:29)
[2018-01-15] MEDS: OLANZapine 5mg rapidly disint. tablet PO SCH ×2 (08:39→13:00)
[2018-01-15] MEDS: thiamine 100mg tablet PO SCH ×2 (08:39→20:28)
[2018-01-15] MEDS: docusate sod 100mg capsule PO SCH ×2 (08:39→20:29)
[2018-01-15] MEDS: Protein Shake (high protein) 240ml (8oz) cup PO SCH ×3 (08:42→18:00)
[2018-01-15] MEDS: QUEtiapine 25mg tablet PO SCH (20:29)
[2018-01-15] MEDS: haloperidol 5mg tablet PO SCH (20:29)
[2018-01-16] MEDS: thiamine 100mg tablet PO SCH ×2 (08:24→21:14)
[2018-01-16] MEDS: folic acid 1mg tablet PO SCH ×2 (08:24→21:14)
[2018-01-16] MEDS: docusate sod 100mg capsule PO SCH ×2 (08:24→21:14)
[2018-01-16] MEDS: OLANZapine 5mg rapidly disint. tablet PO SCH ×2 (08:24→13:03)
[2018-01-16] MEDS: Protein Shake (high protein) 240ml (8oz) cup PO SCH ×3 (08:30→19:00)
[2018-01-16] MEDS: haloperidol 5mg tablet PO SCH (21:13)
[2018-01-16] MEDS: QUEtiapine 25mg tablet PO SCH (21:15)
[2018-01-17] MEDS: Protein Shake (high protein) 240ml (8oz) cup PO SCH ×3 (08:00→18:00)
[2018-01-17] MEDS: docusate sod 100mg capsule PO SCH ×2 (08:22→20:17)
[2018-01-17] MEDS: folic acid 1mg tablet PO SCH ×2 (08:22→20:16)
[2018-01-17] MEDS: thiamine 100mg tablet PO SCH ×2 (08:22→20:16)
[2018-01-17] MEDS: OLANZapine 5mg rapidly disint. tablet PO SCH ×2 (08:23→13:10)
[2018-01-17] MEDS: haloperidol 5mg tablet PO SCH (20:17)
[2018-01-17] MEDS: QUEtiapine 25mg tablet PO SCH (20:17)
[2018-01-18] MEDS: docusate sod 100mg capsule PO SCH ×2 (08:25→20:38)
[2018-01-18] MEDS: folic acid 1mg tablet PO SCH ×2 (08:25→20:38)
[2018-01-18] MEDS: thiamine 100mg tablet PO SCH ×2 (08:25→20:38)
[2018-01-18] MEDS: OLANZapine 5mg rapidly disint. tablet PO SCH ×2 (08:25→17:14)
[2018-01-18] MEDS: Protein Shake (high protein) 240ml (8oz) cup PO SCH ×3 (08:43→18:58)
[2018-01-18] MEDS: QUEtiapine 25mg tablet PO SCH (20:38)
[2018-01-18] MEDS: haloperidol 5mg tablet PO SCH (20:38)
[2018-01-19] MEDS: folic acid 1mg tablet PO SCH ×2 (08:40→20:04)
[2018-01-19] MEDS: OLANZapine 5mg rapidly disint. tablet PO SCH ×2 (08:40→13:42)
[2018-01-19] MEDS: Protein Shake (high protein) 240ml (8oz) cup PO SCH ×3 (08:40→20:01)
[2018-01-19] MEDS: docusate sod 100mg capsule PO SCH ×2 (08:40→20:04)
[2018-01-19] MEDS: thiamine 100mg tablet PO SCH ×2 (08:40→20:04)
[2018-01-19] MEDS: haloperidol 5mg tablet PO SCH (20:04)
[2018-01-19] MEDS: QUEtiapine 25mg tablet PO SCH (20:04)
[2018-01-20] MEDS: thiamine 100mg tablet PO SCH ×2 (08:00→21:08)
[2018-01-20] MEDS: Protein Shake (high protein) 240ml (8oz) cup PO SCH ×3 (08:00→18:00)
[2018-01-20] MEDS: docusate sod 100mg capsule PO SCH ×2 (08:00→21:07)
[2018-01-20] MEDS: folic acid 1mg tablet PO SCH ×2 (08:00→21:08)
[2018-01-20] MEDS: OLANZapine 5mg rapidly disint. tablet PO SCH ×2 (08:00→13:07)
[2018-01-20] MEDS: haloperidol 5mg tablet PO SCH (21:07)
[2018-01-20] MEDS: QUEtiapine 25mg tablet PO SCH (21:08)
[2018-01-21] MEDS: docusate sod 100mg capsule PO SCH ×3 (08:53→20:15)
[2018-01-21] MEDS: acetaminophen 325mg/10.15ml oral unit dose solution PO PRN (08:53)
[2018-01-21] MEDS: OLANZapine 5mg rapidly disint. tablet PO SCH ×2 (08:54→13:54)
[2018-01-21] MEDS: folic acid 1mg tablet PO SCH ×3 (08:54→20:15)
[2018-01-21] MEDS: thiamine 100mg tablet PO SCH ×3 (08:54→20:15)
[2018-01-21] MEDS: Protein Shake (high protein) 240ml (8oz) cup PO SCH ×3 (08:54→18:00)
[2018-01-21] MEDS: bisacodyl 10mg suppository rectal RC PRN (15:22)
[2018-01-21] MEDS: haloperidol 5mg tablet PO SCH ×2 (20:15→21:00)
[2018-01-21] MEDS: QUEtiapine 25mg tablet PO SCH ×2 (20:15→21:00)
[2018-01-22] MEDS: Protein Shake (high protein) 240ml (8oz) cup PO SCH ×3 (08:00→18:30)
[2018-01-22] MEDS: thiamine 100mg tablet PO SCH ×2 (10:21→20:58)
[2018-01-22] MEDS: docusate sod 100mg capsule PO SCH ×2 (10:22→20:00)
[2018-01-22] MEDS: OLANZapine 5mg rapidly disint. tablet PO SCH ×2 (10:22→14:29)
[2018-01-22] MEDS: folic acid 1mg tablet PO SCH ×2 (10:22→21:00)
[2018-01-22] MEDS: haloperidol 5mg tablet PO SCH (20:58)
[2018-01-22] MEDS: QUEtiapine 25mg tablet PO SCH (21:00)
[2018-01-23] MEDS: thiamine 100mg tablet PO SCH ×2 (08:16→19:24)
[2018-01-23] MEDS: OLANZapine 5mg rapidly disint. tablet PO SCH ×2 (08:16→13:06)
[2018-01-23] MEDS: folic acid 1mg tablet PO SCH ×2 (08:17→19:24)
[2018-01-23] MEDS: docusate sod 100mg capsule PO SCH ×2 (08:17→19:24)
[2018-01-23] MEDS: Protein Shake (high protein) 240ml (8oz) cup PO SCH ×3 (08:18→18:00)
[2018-01-23] MEDS: QUEtiapine 25mg tablet PO SCH (21:41)
[2018-01-23] MEDS: haloperidol 5mg tablet PO SCH (21:41)
[2018-01-24] MEDS: Protein Shake (high protein) 240ml (8oz) cup PO SCH ×3 (08:00→18:35)
[2018-01-24] MEDS: thiamine 100mg tablet PO SCH ×2 (08:28→20:16)
[2018-01-24] MEDS: docusate sod 100mg capsule PO SCH ×2 (08:28→20:16)
[2018-01-24] MEDS: OLANZapine 5mg rapidly disint. tablet PO SCH ×2 (08:28→14:25)
[2018-01-24] MEDS: folic acid 1mg tablet PO SCH ×2 (08:28→20:16)
[2018-01-24] MEDS: haloperidol 5mg tablet PO SCH (20:16)
[2018-01-24] MEDS: QUEtiapine 25mg tablet PO SCH (20:16)
[2018-01-25] MEDS: docusate sod 100mg capsule PO SCH ×2 (08:18→20:54)
[2018-01-25] MEDS: thiamine 100mg tablet PO SCH ×2 (08:18→20:54)
[2018-01-25] MEDS: Protein Shake (high protein) 240ml (8oz) cup PO SCH ×3 (08:18→19:31)
[2018-01-25] MEDS: OLANZapine 5mg rapidly disint. tablet PO SCH ×2 (08:18→12:35)
[2018-01-25] MEDS: folic acid 1mg tablet PO SCH ×2 (08:18→20:54)
[2018-01-25] MEDS: QUEtiapine 25mg tablet PO SCH (20:54)
[2018-01-25] MEDS: haloperidol 5mg tablet PO SCH (20:55)
[2018-01-26] MEDS: Protein Shake (high protein) 240ml (8oz) cup PO SCH ×3 (08:20→20:15)
[2018-01-26] MEDS: docusate sod 100mg capsule PO SCH ×2 (08:20→20:14)
[2018-01-26] MEDS: OLANZapine 5mg rapidly disint. tablet PO SCH ×2 (08:20→13:41)
[2018-01-26] MEDS: folic acid 1mg tablet PO SCH ×2 (08:20→20:14)
[2018-01-26] MEDS: thiamine 100mg tablet PO SCH ×2 (08:20→20:14)
[2018-01-26] MEDS: haloperidol 5mg tablet PO SCH (20:14)
[2018-01-26] MEDS: QUEtiapine 25mg tablet PO SCH (20:14)
[2018-01-27] MEDS: OLANZapine 5mg rapidly disint. tablet PO SCH ×2 (07:56→15:16)
[2018-01-27] MEDS: thiamine 100mg tablet PO SCH ×2 (07:56→20:30)
[2018-01-27] MEDS: docusate sod 100mg capsule PO SCH ×2 (07:56→20:30)
[2018-01-27] MEDS: folic acid 1mg tablet PO SCH ×2 (07:56→20:30)
[2018-01-27] MEDS: Protein Shake (high protein) 240ml (8oz) cup PO SCH ×3 (08:02→17:55)
[2018-01-27] MEDS: haloperidol 5mg tablet PO SCH (20:30)
[2018-01-27] MEDS: QUEtiapine 25mg tablet PO SCH (20:30)
[2018-01-28] MEDS: Protein Shake (high protein) 240ml (8oz) cup PO SCH ×3 (08:00→18:00)
[2018-01-28] MEDS: thiamine 100mg tablet PO SCH ×2 (09:05→21:26)
[2018-01-28] MEDS: OLANZapine 5mg rapidly disint. tablet PO SCH ×2 (09:05→15:24)
[2018-01-28] MEDS: folic acid 1mg tablet PO SCH ×2 (09:05→21:26)
[2018-01-28] MEDS: docusate sod 100mg capsule PO SCH ×2 (09:05→21:26)
[2018-01-28] MEDS: QUEtiapine 25mg tablet PO SCH (21:26)
[2018-01-28] MEDS: haloperidol 5mg tablet PO SCH (21:26)
[2018-01-29] MEDS: folic acid 1mg tablet PO SCH ×2 (08:33→20:00)
[2018-01-29] MEDS: docusate sod 100mg capsule PO SCH ×2 (08:33→20:00)
[2018-01-29] MEDS: OLANZapine 5mg rapidly disint. tablet PO SCH ×2 (08:33→14:12)
[2018-01-29] MEDS: thiamine 100mg tablet PO SCH ×2 (08:33→20:00)
[2018-01-29] MEDS: Protein Shake (high protein) 240ml (8oz) cup PO SCH ×3 (08:34→18:14)
[2018-01-29] MEDS: acetaminophen 325mg/10.15ml oral unit dose solution PO PRN (14:16)
[2018-01-29] MEDS: haloperidol 5mg tablet PO SCH (20:19)
[2018-01-29] MEDS: QUEtiapine 25mg tablet PO SCH (20:19)
[2018-01-30] MEDS: thiamine 100mg tablet PO SCH ×2 (12:02→19:45)
[2018-01-30] MEDS: docusate sod 100mg capsule PO SCH ×2 (12:03→19:45)
[2018-01-30] MEDS: OLANZapine 5mg rapidly disint. tablet PO SCH ×2 (12:03→13:02)
[2018-01-30] MEDS: Protein Shake (high protein) 240ml (8oz) cup PO SCH ×3 (12:04→19:14)
[2018-01-30] MEDS: folic acid 1mg tablet PO SCH ×2 (12:04→19:45)
[2018-01-30] MEDS: QUEtiapine 25mg tablet PO SCH (20:32)
[2018-01-30] MEDS: haloperidol 5mg tablet PO SCH (20:32)
[2018-01-31] MEDS: docusate sod 100mg capsule PO SCH ×2 (08:00→21:03)
[2018-01-31] MEDS: Protein Shake (high protein) 240ml (8oz) cup PO SCH ×3 (08:00→18:40)
[2018-01-31] MEDS: OLANZapine 5mg rapidly disint. tablet PO SCH ×2 (08:00→13:15)
[2018-01-31] MEDS: folic acid 1mg tablet PO SCH ×2 (11:08→21:03)
[2018-01-31] MEDS: thiamine 100mg tablet PO SCH ×2 (11:08→21:03)
[2018-01-31] MEDS: QUEtiapine 25mg tablet PO SCH (21:03)
[2018-01-31] MEDS: haloperidol 5mg tablet PO SCH (21:04)
[2018-02-01] MEDS: docusate sod 100mg capsule PO SCH ×2 (08:09→20:27)
[2018-02-01] MEDS: Protein Shake (high protein) 240ml (8oz) cup PO SCH ×3 (08:10→18:00)
[2018-02-01] MEDS: folic acid 1mg tablet PO SCH ×2 (08:10→20:27)
[2018-02-01] MEDS: OLANZapine 5mg rapidly disint. tablet PO SCH ×2 (08:10→13:19)
[2018-02-01] MEDS: thiamine 100mg tablet PO SCH ×2 (08:10→20:27)
[2018-02-01] MEDS: haloperidol 5mg tablet PO SCH (20:27)
[2018-02-01] MEDS: QUEtiapine 25mg tablet PO SCH (20:28)
[2018-02-02] MEDS: Protein Shake (high protein) 240ml (8oz) cup PO SCH ×3 (08:00→17:59)
[2018-02-02] MEDS: thiamine 100mg tablet PO SCH ×2 (08:06→20:20)
[2018-02-02] MEDS: folic acid 1mg tablet PO SCH ×2 (08:06→20:20)
[2018-02-02] MEDS: docusate sod 100mg capsule PO SCH ×2 (08:06→20:20)
[2018-02-02] MEDS: OLANZapine 5mg rapidly disint. tablet PO SCH ×2 (08:06→13:35)
[2018-02-02] MEDS: haloperidol 5mg tablet PO SCH (20:20)
[2018-02-02] MEDS: QUEtiapine 25mg tablet PO SCH (20:20)
[2018-02-03] MEDS: Protein Shake (high protein) 240ml (8oz) cup PO SCH ×3 (08:00→18:02)
[2018-02-03] MEDS: thiamine 100mg tablet PO SCH ×2 (08:58→20:48)
[2018-02-03] MEDS: OLANZapine 5mg rapidly disint. tablet PO SCH ×2 (08:58→13:02)
[2018-02-03] MEDS: folic acid 1mg tablet PO SCH ×2 (08:58→20:48)
[2018-02-03] MEDS: docusate sod 100mg capsule PO SCH ×2 (08:58→20:48)
[2018-02-03] MEDS: QUEtiapine 25mg tablet PO SCH (20:49)
[2018-02-03] MEDS: haloperidol 5mg tablet PO SCH (20:49)
[2018-02-04 05:47] VITALS: BP 138/71
[2018-02-04] MEDS: folic acid 1mg tablet PO SCH (10:00)
[2018-02-04] MEDS: docusate sod 100mg capsule PO SCH (10:00)
[2018-02-04] MEDS: acetaminophen 325mg/10.15ml oral unit dose solution PO PRN (10:01)
[2018-02-04] MEDS: OLANZapine 5mg rapidly disint. tablet PO SCH ×2 (10:01→13:37)
[2018-02-04] MEDS: Protein Shake (high protein) 240ml (8oz) cup PO SCH ×2 (10:03→13:37)
[2018-02-04] MEDS: thiamine 100mg tablet PO SCH (11:06)
[2018-02-04] MEDS: baclofen 10mg tablet PO SCH ×2 (11:06→16:00)
== END 2018-02-04 16:30 ==
LOC: ER 18:00
DX: F20.2 Catatonic schizophrenia (principal); F20.9 Schizophrenia, unspecified; Z88.0 Allergy status to penicillin; Z79.899 Other long term (current) drug therapy
CPT/HCPCS: 36415; 80048; 80053; 80305; 80320; 81001; 81003; 82140; 82550; 82553; 82945; 82948; 83605; 84157; 84443; 84484; 85025; 85379; 85651; 86140; 86592; 86618; 86703; 86788; 86789; 87015; 87040; 87070; 87088; 87491; 87591; 89051; 96361; 96372; 96374; 96375; 96376; 99285; J2060; A6250

== ENCOUNTER 2018-02-04 14:00 | Inpatient (IN) | payer MEDICAID ==
[~2018-02-04] VITALS: Ht 177.8 cm; Wt 60.9 kg
[~2018-02-04 14:00] MED LIST: ESCI5TAB PO; FLUP1TAB PO; LORA0.5T PO; OLAN5TAB5 PO
[2018-02-04 17:28] VITALS: BP 103/63
[2018-02-04 19:58] VITALS: BP 118/68
[2018-02-05] MEDS ORDERED: ESCITALOPRAM OXALATE PO SCH (07:30)
[2018-02-05] MEDS ORDERED: OLANZapine 5mg rapidly disint. tablet PO SCH (08:00)
[2018-02-05 08:13] VITALS: BP 121/73
[2018-02-05] MEDS: citalopram 20mg tablet PO SCH (08:25)
[2018-02-05 09:39] LABS: BASOPHILS % (AUTO) 0.5 % (0-1); EOSINOPHILS # (AUTO) 0.2 X10'3 (0-0.9); EOSINOPHILS % (AUTO) 3.1 % (0-6); HEMATOCRIT 47.3 % (42.0-52.0); LYMPHOCYTES # (AUTO) 1.2 X10'3 (1.1-4.8); LYMPHOCYTES % (AUTO) 16.5 % (21-51); MEAN CORPUSCULAR HGB CONC 33.8 % (33.0-36.5); MEAN CORPUSCULAR VOLUME 91.9 FL (78-98); MEAN PLATELET VOLUME 8.1 FL (7.4-10.4); MONOCYTES # (AUTO) 0.4 X10'3 (0-0.9); MONOCYTES % (AUTO) 5.1 % (2-12); NEUTROPHILS # (AUTO) 5.2 X10'3 (1.8-7.7); NEUTROPHILS % (AUTO) 74.8 % (42-75); PLATELET COUNT 199 X10'3 (140-440); RED BLOOD COUNT 5.14 X10'6 (4.70-6.10); RED CELL DISTRIBUTION WIDTH 14.1 % (11.5-14.5)
[2018-02-05 09:57] LABS: ALANINE AMINOTRANSFERASE 32 U/L (12-78); ALBUMIN 3.9 G/DL (3.4-5.0); ALBUMIN/GLOBULIN RATIO 1.1 (1.1-1.5); ALKALINE PHOSPHATASE 79 IU/L (46-116); ANION GAP 12 (8-16); ASPARTATE AMINO TRANSFERASE 19 U/L (10-37); BILIRUBIN,TOTAL 0.4 MG/DL (0.1-1.0); BLOOD UREA NITROGEN 23 MG/DL (7-18); BUN/CREATININE RATIO 23.2 (5.4-32.0); CALCIUM 9.5 MG/DL (8.5-10.1); CHLORIDE 103 MMOL/L (99-107); CREATININE 0.99 MG/DL (0.60-1.10); GLUCOSE 110 MG/DL (70-104); HEMOGLOBIN A1C 5.3 % (4.5-6.2); POTASSIUM 4.1 MMOL/L (3.5-5.1); SODIUM 143 MMOL/L (135-145); TOTAL CARBON DIOXIDE 28.4 MMOL/L (24-32); TOTAL PROTEIN 7.3 G/DL (6.4-8.2); eGFR 77 ML/MIN
[2018-02-05 10:09] LABS: CHOL/HDL RATIO 4.2 (0.00-4.99); CHOLESTEROL 259 MG/DL (0-200); HDL CHOLESTEROL 61 MG/DL (35-60); LDL CHOLESTEROL 176 MG/DL (50-100); TRIGLYCERIDES 127 MG/DL (20-135)
[2018-02-05 19:28] VITALS: BP 105/52
[2018-02-06 08:07] VITALS: BP 103/67
[2018-02-06] MEDS: citalopram 20mg tablet PO SCH (09:01)
[2018-02-06] MEDS: acetaminophen 325mg tablet PO PRN ×2 (09:22→22:48)
[2018-02-06] MEDS ORDERED: zolpidem 5mg tablet PO ONE (11:00)
[2018-02-06 19:00] VITALS: BP 107/61
[2018-02-06] MEDS: LORazepam 0.5 MG tablet PO PRN (22:49)
[2018-02-07] MEDS: citalopram 20mg tablet PO SCH (08:10)
[2018-02-07 08:45] VITALS: BP 126/64
[2018-02-07] MEDS: Protein Shake (high protein) 240ml (8oz) cup PO SCH (18:00)
[2018-02-07] MEDS: LORazepam 0.5 MG tablet PO PRN (18:53)
[2018-02-07] MEDS: acetaminophen 325mg tablet PO PRN (18:53)
[2018-02-07 19:00] VITALS: BP 118/64
[2018-02-07] MEDS: memantine 5mg tablet PO SCH (20:34)
[2018-02-08 08:00] VITALS: BP 119/64
[2018-02-08] MEDS: citalopram 20mg tablet PO SCH (08:05)
[2018-02-08] MEDS: memantine 5mg tablet PO SCH ×2 (08:05→20:45)
[2018-02-08] MEDS: Protein Shake (high protein) 240ml (8oz) cup PO SCH ×3 (08:05→18:00)
[2018-02-08] MEDS: LORazepam 0.5 MG tablet PO PRN ×2 (08:24→20:45)
[2018-02-08 19:00] VITALS: BP 115/64
[2018-02-09 08:00] VITALS: BP 130/80
[2018-02-09] MEDS: Protein Shake (high protein) 240ml (8oz) cup PO SCH ×3 (08:03→17:43)
[2018-02-09] MEDS: citalopram 20mg tablet PO SCH (08:03)
[2018-02-09] MEDS: memantine 5mg tablet PO SCH ×2 (08:03→21:41)
[2018-02-09] MEDS: LORazepam 0.5 MG tablet PO PRN (15:32)
[2018-02-09 19:55] VITALS: BP 129/72
[2018-02-10 08:00] VITALS: BP 113/63
[2018-02-10] MEDS: memantine 5mg tablet PO SCH ×2 (08:06→20:27)
[2018-02-10] MEDS: citalopram 20mg tablet PO SCH (08:07)
[2018-02-10] MEDS: Protein Shake (high protein) 240ml (8oz) cup PO SCH ×3 (08:07→17:53)
[2018-02-10] MEDS ORDERED: LORazepam 1 MG tablet PO ONE ×2 (10:40→11:35)
[2018-02-10] MEDS: LORazepam 1 MG tablet PO SCH ×2 (17:53→20:27)
[2018-02-10 19:00] VITALS: BP 88/70
[2018-02-10] MEDS ORDERED: LORazepam 1 MG tablet PO SCH (20:00)
[2018-02-10] MEDS: docusate sod 250mg capsule PO SCH (20:27)
[2018-02-11 08:00] VITALS: BP 102/55
[2018-02-11] MEDS ORDERED: LORazepam 1 MG tablet PO SCH ×2 (08:00→16:00)
[2018-02-11] MEDS: citalopram 20mg tablet PO SCH (08:16)
[2018-02-11] MEDS: docusate sod 250mg capsule PO SCH ×2 (08:16→19:17)
[2018-02-11] MEDS: memantine 5mg tablet PO SCH ×2 (08:16→19:17)
[2018-02-11] MEDS: Protein Shake (high protein) 240ml (8oz) cup PO SCH ×3 (08:20→17:45)
[2018-02-11] MEDS: LORazepam 1 MG tablet PO SCH ×4 (17:19→23:00)
[2018-02-11 19:00] VITALS: BP 121/66
[2018-02-11] MEDS: acetaminophen 325mg tablet PO PRN (21:11)
[2018-02-12] MEDS: LORazepam 1 MG tablet PO SCH ×12 (01:00→23:00)
[2018-02-12 08:16] VITALS: BP 110/66
[2018-02-12] MEDS: docusate sod 250mg capsule PO SCH ×2 (08:22→20:09)
[2018-02-12] MEDS: acetaminophen 325mg tablet PO PRN (08:22)
[2018-02-12] MEDS: memantine 5mg tablet PO SCH ×2 (08:22→20:09)
[2018-02-12] MEDS: citalopram 20mg tablet PO SCH (08:23)
[2018-02-12] MEDS: Protein Shake (high protein) 240ml (8oz) cup PO SCH ×3 (08:27→18:00)
[2018-02-12 20:00] VITALS: BP 112/68
[2018-02-12 20:09] VITALS: BP 140/62
[2018-02-13] MEDS: LORazepam 1 MG tablet PO SCH ×13 (01:00→23:00)
[2018-02-13] MEDS: Protein Shake (high protein) 240ml (8oz) cup PO SCH ×3 (08:00→18:00)
[2018-02-13 08:11] VITALS: BP 103/57
[2018-02-13] MEDS: citalopram 20mg tablet PO SCH (08:22)
[2018-02-13] MEDS: docusate sod 250mg capsule PO SCH ×2 (08:23→19:33)
[2018-02-13] MEDS: memantine 5mg tablet PO SCH ×2 (08:23→19:33)
[2018-02-13] MEDS: acetaminophen 325mg tablet PO PRN (09:54)
[2018-02-13 16:54] LABS: BASOPHILS # (AUTO) 0.2 X10'3 (0-0.2); BASOPHILS % (AUTO) 1.7 % (0-1); EOSINOPHILS # (AUTO) 0.2 X10'3 (0-0.9); EOSINOPHILS % (AUTO) 1.8 % (0-6); HEMATOCRIT 43.8 % (42.0-52.0); HEMOGLOBIN 14.3 g/dl (14.0-17.9); LYMPHOCYTES # (AUTO) 1.5 X10'3 (1.1-4.8); LYMPHOCYTES % (AUTO) 16.9 % (21-51); MEAN CORPUSCULAR HEMOGLOBIN 30.1 PG (27.0-31.0); MEAN CORPUSCULAR HGB CONC 32.6 % (33.0-36.5); MEAN CORPUSCULAR VOLUME 92.4 FL (78-98); MEAN PLATELET VOLUME 8.2 FL (7.4-10.4); MONOCYTES # (AUTO) 0.5 X10'3 (0-0.9); MONOCYTES % (AUTO) 5.8 % (2-12); NEUTROPHILS # (AUTO) 6.5 X10'3 (1.8-7.7); NEUTROPHILS % (AUTO) 73.8 % (42-75); PLATELET COUNT 229 X10'3 (140-440); RED BLOOD COUNT 4.74 X10'6 (4.70-6.10); RED CELL DISTRIBUTION WIDTH 13.6 % (11.5-14.5); WHITE BLOOD COUNT 8.9 X10'3 (4.5-11.0)
[2018-02-13 17:04] LABS: ALANINE AMINOTRANSFERASE 26 U/L (12-78); ALBUMIN 3.6 G/DL (3.4-5.0); ALBUMIN/GLOBULIN RATIO 1.3 (1.1-1.5); ALKALINE PHOSPHATASE 68 IU/L (46-116); ANION GAP 7 (8-16); ASPARTATE AMINO TRANSFERASE 12 U/L (10-37); BILIRUBIN,TOTAL 0.4 MG/DL (0.1-1.0); BLOOD UREA NITROGEN 18 MG/DL (7-18); BUN/CREATININE RATIO 19.8 (5.4-32.0); CALCIUM 9.1 MG/DL (8.5-10.1); CHLORIDE 104 MMOL/L (99-107); CREATININE 0.91 MG/DL (0.60-1.10); GLUCOSE 93 MG/DL (70-104); SODIUM 141 MMOL/L (135-145); TOTAL CARBON DIOXIDE 30.1 MMOL/L (24-32); TOTAL PROTEIN 6.4 G/DL (6.4-8.2); eGFR 85 ML/MIN
[2018-02-13 19:00] VITALS: BP 105/53
[2018-02-14] MEDS: LORazepam 1 MG tablet PO SCH ×14 (01:00→23:35)
[2018-02-14] MEDS: citalopram 20mg tablet PO SCH (07:42)
[2018-02-14] MEDS: docusate sod 250mg capsule PO SCH ×2 (07:42→22:00)
[2018-02-14] MEDS: memantine 5mg tablet PO SCH ×2 (07:42→22:00)
[2018-02-14 08:00] VITALS: BP 99/64
[2018-02-14] MEDS: Protein Shake (high protein) 240ml (8oz) cup PO SCH ×3 (08:00→18:00)
[2018-02-14 19:00] VITALS: BP 106/57
[2018-02-15 08:00] VITALS: BP 129/63
[2018-02-15] MEDS ORDERED: methylphenidate 5mg tablet PO SCH (08:10)
[2018-02-15] MEDS: citalopram 20mg tablet PO SCH (08:31)
[2018-02-15] MEDS: docusate sod 250mg capsule PO SCH ×2 (08:31→20:30)
[2018-02-15] MEDS: Protein Shake (high protein) 240ml (8oz) cup PO SCH ×3 (08:33→18:00)
[2018-02-15] MEDS ORDERED: memantine 5mg tablet PO ONE (09:30)
[2018-02-15] MEDS: methylphenidate 5mg tablet PO SCH (09:59)
[2018-02-15] MEDS: acetaminophen 325mg tablet PO PRN ×2 (10:00→13:50)
[2018-02-15 17:45] VITALS: BP 127/71
[2018-02-15 19:00] VITALS: BP 141/110
[2018-02-15] MEDS: memantine 5mg tablet PO SCH (20:30)
[2018-02-16 08:00] VITALS: BP 118/80
[2018-02-16] MEDS: Protein Shake (high protein) 240ml (8oz) cup PO SCH ×3 (08:00→17:48)
[2018-02-16] MEDS: docusate sod 250mg capsule PO SCH ×2 (09:08→21:20)
[2018-02-16] MEDS: methylphenidate 5mg tablet PO SCH (09:08)
[2018-02-16] MEDS: memantine 5mg tablet PO SCH ×2 (09:08→21:20)
[2018-02-16] MEDS: citalopram 20mg tablet PO SCH (09:08)
[2018-02-16 17:08] LABS: CERULOPLASMIN 22.7 mg/dL (16.0-31.0)
[2018-02-16 20:25] VITALS: BP 119/79
[2018-02-17 08:00] VITALS: BP 106/61
[2018-02-17] MEDS: Protein Shake (high protein) 240ml (8oz) cup PO SCH ×3 (08:00→18:00)
[2018-02-17] MEDS: methylphenidate 5mg tablet PO SCH (08:08)
[2018-02-17] MEDS: docusate sod 250mg capsule PO SCH ×2 (08:08→21:12)
[2018-02-17] MEDS: citalopram 20mg tablet PO SCH (08:08)
[2018-02-17] MEDS: memantine 5mg tablet PO SCH ×2 (08:08→21:12)
[2018-02-17] MEDS: LORazepam 0.5 MG tablet PO SCH ×2 (13:41→21:12)
[2018-02-17 20:00] VITALS: BP 117/64
[2018-02-18 08:00] VITALS: BP 112/70
[2018-02-18] MEDS: voritoxetine HBr tablet 5 MG TABLET PO SCH (08:12)
[2018-02-18] MEDS: memantine 5mg tablet PO SCH ×2 (08:12→20:40)
[2018-02-18] MEDS: methylphenidate 5mg tablet PO SCH (08:12)
[2018-02-18] MEDS: LORazepam 0.5 MG tablet PO SCH ×3 (08:12→20:41)
[2018-02-18] MEDS: docusate sod 250mg capsule PO SCH ×2 (08:13→20:40)
[2018-02-18] MEDS: Protein Shake (high protein) 240ml (8oz) cup PO SCH ×4 (08:17→20:41)
[2018-02-18 19:48] VITALS: BP 130/74
[2018-02-19 08:00] VITALS: BP 100/62
[2018-02-19] MEDS: Protein Shake (high protein) 240ml (8oz) cup PO SCH ×3 (08:00→13:43)
[2018-02-19] MEDS: docusate sod 250mg capsule PO SCH ×2 (09:13→21:12)
[2018-02-19] MEDS: LORazepam 0.5 MG tablet PO SCH ×3 (09:13→21:12)
[2018-02-19] MEDS: methylphenidate 5mg tablet PO SCH (09:13)
[2018-02-19] MEDS: memantine 5mg tablet PO SCH ×2 (09:13→21:12)
[2018-02-19] MEDS: acetaminophen 325mg tablet PO PRN ×3 (09:16→21:17)
[2018-02-19] MEDS: voritoxetine HBr tablet 5 MG TABLET PO SCH (10:01)
[2018-02-19 13:19] LABS: PARTIAL THROMBOPLASTIN TIME 26 SECONDS (22-32); PROTHROMBIN TIME 10.5 SECONDS (9.0-12.0)
[2018-02-19 13:23] LABS: CREATINE KINASE 276 U/L (39-308); MAGNESIUM 2.1 MG/DL (1.5-2.4); PHOSPHORUS 3.7 MG/DL (2.3-4.5)
[2018-02-19] MEDS ORDERED: LORazepam 2 mg/ml vial IM ONE (14:35)
[2018-02-19 19:00] VITALS: BP 112/83
[2018-02-19] MEDS: magnesium hydroxide 30ml (MOM) UD suspension PO PRN (19:37)
[2018-02-20] MEDS: LORazepam 0.5 MG tablet PO SCH ×4 (08:00→22:15)
[2018-02-20] MEDS ORDERED: LORazepam 2 mg/ml vial ONE (08:00)
[2018-02-20] MEDS: Protein Shake (high protein) 240ml (8oz) cup PO SCH ×3 (08:00→17:55)
[2018-02-20 08:15] VITALS: BP 123/68
[2018-02-20] MEDS ORDERED: gadopentetate dimeglumine 7.5 MMOL/15 ML syringe ONE (09:41)
[2018-02-20 13:05] LABS: ANION GAP 3 (8-16); BLOOD UREA NITROGEN 28 MG/DL (7-18); BUN/CREATININE RATIO 29.2 (5.4-32.0); CALCIUM 9.6 MG/DL (8.5-10.1); CHLORIDE 110 MMOL/L (99-107); CREATININE 0.96 MG/DL (0.60-1.10); GLUCOSE 114 MG/DL (70-104); POTASSIUM 4.6 MMOL/L (3.5-5.1); SODIUM 149 MMOL/L (135-145); TOTAL CARBON DIOXIDE 36.1 MMOL/L (24-32); eGFR 80 ML/MIN
[2018-02-20] MEDS: pantoprazole 40mg Tablet.DR PO SCH (13:08)
[2018-02-20] MEDS: voritoxetine HBr tablet 5 MG TABLET PO SCH (13:08)
[2018-02-20] MEDS: docusate sod 250mg capsule PO SCH ×2 (13:08→22:15)
[2018-02-20] MEDS: memantine 5mg tablet PO SCH ×2 (13:08→22:15)
[2018-02-20] MEDS: dextrose 5%-water 1,000 ML IV SCH ×2 (16:24→22:45)
[2018-02-20 19:00] VITALS: BP 113/65
[2018-02-20 19:46] LABS: CLARITY,URINE CLEAR (Clear); COLOR,URINE YELLOW (Yellow); GLUCOSE, URINE NEGATIVE (Neg); KETONES,URINE NEGATIVE (Neg); LEUKOCYTE ESTERASE ,URINE NEGATIVE (Neg); NITRITES, URINE POSITIVE (Neg); OCCULT BLOOD,URINE MODERATE (Neg); PROTEIN,URINE TRACE mg/dl (Neg); UROBILINOGEN,URINE 0.2 E.U/dL (0.2-1.0)
[2018-02-20 19:52] LABS: UA COLLECTION TYPE NON-SPECIFIED
[2018-02-20 19:53] LABS: BACTERIA,URINE 4+ /HPF (Neg); MUCUS STRANDS MODERATE /LPF (Neg); RBC,URINE 20-50 /HPF (0-2); SQUAMOUS EPITHELIAL CELL,UR FEW /LPF (FEW); WBC,URINE 50-100 /HPF (0-4)
[2018-02-20] MEDS ORDERED: CefTRIAXone/D5W-Rocephin 1gm 50 ML IV ONE (21:20)
[2018-02-20] MEDS: magnesium hydroxide 30ml (MOM) UD suspension PO PRN (22:19)
[2018-02-21] MEDS: docusate sod 250mg capsule PO SCH ×2 (07:57→20:37)
[2018-02-21] MEDS: voritoxetine HBr tablet 5 MG TABLET PO SCH (07:57)
[2018-02-21] MEDS: memantine 5mg tablet PO SCH ×2 (07:57→20:37)
[2018-02-21] MEDS: LORazepam 0.5 MG tablet PO SCH ×3 (07:58→20:38)
[2018-02-21] MEDS: lactobacillus rhamnosus 10,000 MMU CELLS/CAPSULE PO SCH ×2 (07:58→20:43)
[2018-02-21 08:00] VITALS: BP 105/67
[2018-02-21] MEDS: pantoprazole 40mg Tablet.DR PO SCH (08:27)
[2018-02-21] MEDS: Protein Shake (high protein) 240ml (8oz) cup PO SCH ×3 (08:28→18:03)
[2018-02-21] MEDS: CefTRIAXone/D5W-Rocephin 1gm 50 ML IV SCH (09:08)
[2018-02-21 21:31] VITALS: BP 113/61
[2018-02-22] MEDS: pantoprazole 40mg Tablet.DR PO SCH (08:01)
[2018-02-22] MEDS: docusate sod 250mg capsule PO SCH ×2 (08:01→20:24)
[2018-02-22] MEDS: LORazepam 0.5 MG tablet PO SCH ×3 (08:01→20:24)
[2018-02-22] MEDS: memantine 5mg tablet PO SCH ×2 (08:01→20:24)
[2018-02-22] MEDS: lactobacillus rhamnosus 10,000 MMU CELLS/CAPSULE PO SCH ×2 (08:01→20:24)
[2018-02-22] MEDS: voritoxetine HBr tablet 5 MG TABLET PO SCH (08:02)
[2018-02-22] MEDS: Protein Shake (high protein) 240ml (8oz) cup PO SCH ×3 (08:56→18:00)
[2018-02-22] MEDS: CefTRIAXone/D5W-Rocephin 1gm 50 ML IV SCH (09:35)
[2018-02-22 19:52] VITALS: BP 129/73
[2018-02-23 08:00] VITALS: BP 149/72
[2018-02-23] MEDS: CefTRIAXone/D5W-Rocephin 1gm 50 ML IV SCH (08:00)
[2018-02-23] MEDS: Protein Shake (high protein) 240ml (8oz) cup PO SCH ×3 (08:00→18:00)
[2018-02-23] MEDS: LORazepam 0.5 MG tablet PO SCH ×3 (08:05→21:14)
[2018-02-23] MEDS: pantoprazole 40mg Tablet.DR PO SCH (08:06)
[2018-02-23] MEDS: lactobacillus rhamnosus 10,000 MMU CELLS/CAPSULE PO SCH ×2 (08:06→21:14)
[2018-02-23] MEDS: docusate sod 250mg capsule PO SCH ×2 (08:06→21:14)
[2018-02-23] MEDS: memantine 5mg tablet PO SCH ×2 (08:06→21:13)
[2018-02-23] MEDS: voritoxetine HBr tablet 5 MG TABLET PO SCH (08:06)
[2018-02-23] MEDS: DOXYCYCLINE 100MG CAPSULE PO SCH ×2 (13:50→17:48)
[2018-02-23 20:00] VITALS: BP 115/85
[2018-02-24 08:00] VITALS: BP 115/55
[2018-02-24] MEDS: Protein Shake (high protein) 240ml (8oz) cup PO SCH ×3 (08:00→18:00)
[2018-02-24] MEDS: memantine 5mg tablet PO SCH ×2 (08:09→21:02)
[2018-02-24] MEDS: docusate sod 250mg capsule PO SCH ×2 (08:09→21:02)
[2018-02-24] MEDS: voritoxetine HBr tablet 5 MG TABLET PO SCH (08:10)
[2018-02-24] MEDS: lactobacillus rhamnosus 10,000 MMU CELLS/CAPSULE PO SCH ×2 (08:10→21:03)
[2018-02-24] MEDS: pantoprazole 40mg Tablet.DR PO SCH (08:10)
[2018-02-24] MEDS: DOXYCYCLINE 100MG CAPSULE PO SCH ×2 (08:10→17:47)
[2018-02-24] MEDS: LORazepam 0.5 MG tablet PO SCH ×3 (08:10→21:02)
[2018-02-24 09:52] LABS: ALBUMIN 3.5 G/DL (3.4-5.0); ANION GAP 5 (8-16); BLOOD UREA NITROGEN 23 MG/DL (7-18); BUN/CREATININE RATIO 28.4 (5.4-32.0); CALCIUM 8.9 MG/DL (8.5-10.1); CHLORIDE 106 MMOL/L (99-107); CREATININE 0.81 MG/DL (0.60-1.10); GLUCOSE 103 MG/DL (70-104); POTASSIUM 3.6 MMOL/L (3.5-5.1); SODIUM 144 MMOL/L (135-145); TOTAL CARBON DIOXIDE 33.5 MMOL/L (24-32); eGFR > 90 ML/MIN
[2018-02-24] MEDS ORDERED: Protein Shake (high protein) 240ml (8oz) cup PO SCH (13:00)
[2018-02-24] MEDS ORDERED: gadopentetate dimeglumine 7.5 MMOL/15 ML syringe ONE (17:58)
[2018-02-24 20:00] VITALS: BP 120/66
[2018-02-25] MEDS: memantine 5mg tablet PO SCH ×2 (07:45→20:34)
[2018-02-25] MEDS: docusate sod 250mg capsule PO SCH ×2 (07:46→20:34)
[2018-02-25] MEDS: voritoxetine HBr tablet 5 MG TABLET PO SCH (07:46)
[2018-02-25] MEDS: DOXYCYCLINE 100MG CAPSULE PO SCH ×2 (07:46→17:46)
[2018-02-25] MEDS: pantoprazole 40mg Tablet.DR PO SCH (07:46)
[2018-02-25] MEDS: lactobacillus rhamnosus 10,000 MMU CELLS/CAPSULE PO SCH ×2 (07:46→20:34)
[2018-02-25] MEDS: LORazepam 0.5 MG tablet PO SCH ×3 (07:46→20:34)
[2018-02-25 08:00] VITALS: BP 114/72
[2018-02-25] MEDS: Protein Shake (high protein) 240ml (8oz) cup PO SCH ×3 (08:00→18:00)
[2018-02-25 16:00] VITALS: BP 114/70
[2018-02-25 20:00] VITALS: BP 145/79
[2018-02-26] MEDS: Protein Shake (high protein) 240ml (8oz) cup PO SCH ×3 (08:00→18:00)
[2018-02-26] MEDS: memantine 5mg tablet PO SCH ×2 (08:49→20:29)
[2018-02-26] MEDS: pantoprazole 40mg Tablet.DR PO SCH (08:49)
[2018-02-26] MEDS: lactobacillus rhamnosus 10,000 MMU CELLS/CAPSULE PO SCH ×2 (08:50→20:29)
[2018-02-26] MEDS: LORazepam 0.5 MG tablet PO SCH ×3 (08:50→20:29)
[2018-02-26] MEDS: DOXYCYCLINE 100MG CAPSULE PO SCH ×2 (08:50→16:33)
[2018-02-26] MEDS: docusate sod 250mg capsule PO SCH ×2 (08:51→20:29)
[2018-02-26 08:58] VITALS: BP 110/68
[2018-02-26] MEDS: voritoxetine HBr tablet 5 MG TABLET PO SCH (09:08)
[2018-02-26 19:00] VITALS: BP 112/64
[2018-02-26] MEDS: acetaminophen 325mg tablet PO PRN (20:30)
[2018-02-27] MEDS: docusate sod 250mg capsule PO SCH ×2 (08:00→20:34)
[2018-02-27] MEDS: lactobacillus rhamnosus 10,000 MMU CELLS/CAPSULE PO SCH ×2 (08:00→20:34)
[2018-02-27] MEDS: memantine 5mg tablet PO SCH ×2 (08:48→20:34)
[2018-02-27] MEDS: LORazepam 0.5 MG tablet PO SCH ×3 (08:48→20:34)
[2018-02-27] MEDS: voritoxetine HBr tablet 5 MG TABLET PO SCH (08:48)
[2018-02-27] MEDS: pantoprazole 40mg Tablet.DR PO SCH (08:49)
[2018-02-27] MEDS: DOXYCYCLINE 100MG CAPSULE PO SCH ×2 (08:49→17:00)
[2018-02-27] MEDS: Protein Shake (high protein) 240ml (8oz) cup PO SCH ×3 (08:54→18:44)
[2018-02-27 09:06] VITALS: BP 100/52
[2018-02-27 20:00] VITALS: BP 119/70
[2018-02-27] MEDS: magnesium hydroxide 30ml (MOM) UD suspension PO PRN (20:36)
[2018-02-28 08:00] VITALS: BP 102/55
[2018-02-28] MEDS: memantine 5mg tablet PO SCH ×2 (08:04→21:34)
[2018-02-28] MEDS: voritoxetine HBr tablet 5 MG TABLET PO SCH (08:04)
[2018-02-28] MEDS: DOXYCYCLINE 100MG CAPSULE PO SCH ×2 (08:04→18:00)
[2018-02-28] MEDS: docusate sod 250mg capsule PO SCH ×2 (08:05→21:34)
[2018-02-28] MEDS: LORazepam 0.5 MG tablet PO SCH ×3 (08:06→21:34)
[2018-02-28] MEDS: lactobacillus rhamnosus 10,000 MMU CELLS/CAPSULE PO SCH ×2 (08:06→21:34)
[2018-02-28] MEDS: pantoprazole 40mg Tablet.DR PO SCH (08:06)
[2018-02-28] MEDS: Protein Shake (high protein) 240ml (8oz) cup PO SCH ×3 (08:13→18:01)
[2018-02-28 20:00] VITALS: BP 122/68
[2018-03-01 08:00] VITALS: BP 103/63
[2018-03-01] MEDS: lactobacillus rhamnosus 10,000 MMU CELLS/CAPSULE PO SCH ×2 (08:41→21:38)
[2018-03-01] MEDS: DOXYCYCLINE 100MG CAPSULE PO SCH ×2 (08:41→17:41)
[2018-03-01] MEDS: voritoxetine HBr tablet 5 MG TABLET PO SCH (08:41)
[2018-03-01] MEDS: Protein Shake (high protein) 240ml (8oz) cup PO SCH ×3 (08:41→17:41)
[2018-03-01] MEDS: LORazepam 0.5 MG tablet PO SCH ×3 (08:41→21:37)
[2018-03-01] MEDS: memantine 5mg tablet PO SCH ×2 (08:41→21:38)
[2018-03-01] MEDS: docusate sod 250mg capsule PO SCH ×2 (08:42→21:38)
[2018-03-01] MEDS: pantoprazole 40mg Tablet.DR PO SCH (08:42)
[2018-03-01] MEDS: sennosides 8.6mg tablet PO PRN (13:06)
[2018-03-01] MEDS: magnesium hydroxide 30ml (MOM) UD suspension PO PRN (17:41)
[2018-03-01 20:00] VITALS: BP 101/64
[2018-03-01] MEDS: bisacodyl 5mg tablet.DR PO SCH (21:38)
[2018-03-02 08:00] VITALS: BP 119/63
[2018-03-02] MEDS: Protein Shake (high protein) 240ml (8oz) cup PO SCH ×3 (08:30→17:42)
[2018-03-02] MEDS: memantine 5mg tablet PO SCH ×2 (08:55→21:40)
[2018-03-02] MEDS: DOXYCYCLINE 100MG CAPSULE PO SCH ×2 (08:55→17:40)
[2018-03-02] MEDS: pantoprazole 40mg Tablet.DR PO SCH (08:56)
[2018-03-02] MEDS: lactobacillus rhamnosus 10,000 MMU CELLS/CAPSULE PO SCH ×2 (08:56→21:41)
[2018-03-02] MEDS: voritoxetine HBr tablet 5 MG TABLET PO SCH (08:56)
[2018-03-02] MEDS: docusate sod 250mg capsule PO SCH ×2 (08:57→21:40)
[2018-03-02] MEDS: LORazepam 0.5 MG tablet PO SCH ×2 (08:57→13:44)
[2018-03-02] MEDS: bisacodyl 10mg suppository rectal RC PRN (14:17)
[2018-03-02 20:32] VITALS: BP 134/74
[2018-03-02] MEDS: bisacodyl 5mg tablet.DR PO SCH (21:00)
[2018-03-02] MEDS: LORazepam 1 MG tablet PO SCH (21:41)
[2018-03-03 08:00] VITALS: BP 147/70
[2018-03-03] MEDS: lactobacillus rhamnosus 10,000 MMU CELLS/CAPSULE PO SCH ×2 (08:46→21:13)
[2018-03-03] MEDS: docusate sod 250mg capsule PO SCH ×2 (08:46→21:13)
[2018-03-03] MEDS: pantoprazole 40mg Tablet.DR PO SCH (08:46)
[2018-03-03] MEDS: voritoxetine HBr tablet 5 MG TABLET PO SCH (08:46)
[2018-03-03] MEDS: DOXYCYCLINE 100MG CAPSULE PO SCH (08:46)
[2018-03-03] MEDS: memantine 5mg tablet PO SCH ×2 (08:47→21:14)
[2018-03-03] MEDS: Protein Shake (high protein) 240ml (8oz) cup PO SCH ×3 (08:47→17:44)
[2018-03-03] MEDS: acetaminophen 325mg tablet PO PRN (10:50)
[2018-03-03] MEDS: LORazepam 1 MG tablet PO SCH ×2 (14:05→21:13)
[2018-03-03 19:52] VITALS: BP 104/59
[2018-03-03] MEDS: bisacodyl 5mg tablet.DR PO SCH (21:13)
[2018-03-04 08:00] VITALS: BP 111/67
[2018-03-04] MEDS: pantoprazole 40mg Tablet.DR PO SCH (08:39)
[2018-03-04] MEDS: docusate sod 250mg capsule PO SCH ×2 (08:39→21:25)
[2018-03-04] MEDS: memantine 5mg tablet PO SCH ×2 (08:39→21:26)
[2018-03-04] MEDS: lactobacillus rhamnosus 10,000 MMU CELLS/CAPSULE PO SCH ×2 (08:40→21:28)
[2018-03-04] MEDS: LORazepam 1 MG tablet PO SCH ×3 (08:40→21:25)
[2018-03-04] MEDS: Protein Shake (high protein) 240ml (8oz) cup PO SCH ×3 (08:40→17:59)
[2018-03-04] MEDS: voritoxetine HBr tablet 5 MG TABLET PO SCH (08:43)
[2018-03-04 20:00] VITALS: BP 107/61
[2018-03-04] MEDS: mag hydrox/Alum hydrox/simeth 30ml oral suspension PO PRN (21:19)
[2018-03-04] MEDS: bisacodyl 5mg tablet.DR PO SCH (21:27)
[2018-03-05] MEDS: lactobacillus rhamnosus 10,000 MMU CELLS/CAPSULE PO SCH ×2 (07:55→21:58)
[2018-03-05] MEDS: docusate sod 250mg capsule PO SCH ×2 (07:56→21:55)
[2018-03-05] MEDS: memantine 5mg tablet PO SCH ×2 (07:56→21:54)
[2018-03-05] MEDS: voritoxetine HBr tablet 5 MG TABLET PO SCH (07:56)
[2018-03-05] MEDS: LORazepam 1 MG tablet PO SCH ×3 (07:56→21:55)
[2018-03-05] MEDS: pantoprazole 40mg Tablet.DR PO SCH (07:56)
[2018-03-05] MEDS: Protein Shake (high protein) 240ml (8oz) cup PO SCH ×3 (08:00→18:07)
[2018-03-05 08:26] VITALS: BP 109/64
[2018-03-05 19:59] VITALS: BP 118/67
[2018-03-05] MEDS: bisacodyl 5mg tablet.DR PO SCH (21:54)
[2018-03-05] MEDS: sennosides 8.6mg tablet PO PRN (21:55)
[2018-03-05] MEDS: mag hydrox/Alum hydrox/simeth 30ml oral suspension PO PRN (21:56)
[2018-03-06] MEDS: LORazepam 1 MG tablet PO SCH ×3 (08:23→20:59)
[2018-03-06] MEDS: memantine 5mg tablet PO SCH ×2 (08:23→20:59)
[2018-03-06] MEDS: voritoxetine HBr tablet 5 MG TABLET PO SCH (08:24)
[2018-03-06] MEDS: docusate sod 250mg capsule PO SCH ×2 (08:27→20:59)
[2018-03-06] MEDS: pantoprazole 40mg Tablet.DR PO SCH (08:27)
[2018-03-06] MEDS: lactobacillus rhamnosus 10,000 MMU CELLS/CAPSULE PO SCH ×2 (08:27→20:58)
[2018-03-06] MEDS: Protein Shake (high protein) 240ml (8oz) cup PO SCH ×3 (08:29→18:00)
[2018-03-06 08:58] VITALS: BP 93/63
[2018-03-06 16:16] LABS: BASOPHILS % (AUTO) 0.2 % (0-1); EOSINOPHILS # (AUTO) 0.3 X10'3 (0-0.9); EOSINOPHILS % (AUTO) 2.8 % (0-6); HEMATOCRIT 41.9 % (42.0-52.0); HEMOGLOBIN 14.1 g/dl (14.0-17.9); LYMPHOCYTES # (AUTO) 1.4 X10'3 (1.1-4.8); LYMPHOCYTES % (AUTO) 11.9 % (21-51); MEAN CORPUSCULAR HEMOGLOBIN 31.1 PG (27.0-31.0); MEAN CORPUSCULAR HGB CONC 33.6 % (33.0-36.5); MEAN CORPUSCULAR VOLUME 92.7 FL (78-98); MEAN PLATELET VOLUME 9.2 FL (7.4-10.4); MONOCYTES # (AUTO) 0.6 X10'3 (0-0.9); MONOCYTES % (AUTO) 5.2 % (2-12); NEUTROPHILS # (AUTO) 9.2 X10'3 (1.8-7.7); NEUTROPHILS % (AUTO) 79.9 % (42-75); PLATELET COUNT 196 X10'3 (140-440); RED BLOOD COUNT 4.52 X10'6 (4.70-6.10); WHITE BLOOD COUNT 11.6 X10'3 (4.5-11.0)
[2018-03-06 16:35] LABS: ALANINE AMINOTRANSFERASE 31 U/L (12-78); ALBUMIN 3.2 G/DL (3.4-5.0); ALBUMIN/GLOBULIN RATIO 1.1 (1.1-1.5); ALKALINE PHOSPHATASE 85 IU/L (46-116); ANION GAP 6 (8-16); ASPARTATE AMINO TRANSFERASE 12 U/L (10-37); BILIRUBIN,TOTAL 0.3 MG/DL (0.1-1.0); BLOOD UREA NITROGEN 22 MG/DL (7-18); CALCIUM 8.6 MG/DL (8.5-10.1); CHLORIDE 107 MMOL/L (99-107); GLUCOSE 97 MG/DL (70-104); POTASSIUM 4.2 MMOL/L (3.5-5.1); SODIUM 146 MMOL/L (135-145); TOTAL PROTEIN 6.2 G/DL (6.4-8.2); eGFR 76 ML/MIN
[2018-03-06 19:45] VITALS: BP 104/59
[2018-03-06] MEDS: bisacodyl 5mg tablet.DR PO SCH (20:59)
[2018-03-07] VITALS (12 sets, daily range): BP systolic 96–135; BP diastolic 60–84
[2018-03-07] MEDS: pantoprazole 40mg Tablet.DR PO SCH (07:30)
[2018-03-07] MEDS: Protein Shake (high protein) 240ml (8oz) cup PO SCH ×3 (08:00→18:00)
[2018-03-07] MEDS: memantine 5mg tablet PO SCH ×2 (08:00→19:39)
[2018-03-07] MEDS: voritoxetine HBr tablet 5 MG TABLET PO SCH (08:00)
[2018-03-07] MEDS: docusate sod 250mg capsule PO SCH ×2 (08:00→19:39)
[2018-03-07] MEDS: LORazepam 1 MG tablet PO SCH ×3 (08:00→19:39)
[2018-03-07] MEDS: lactobacillus rhamnosus 10,000 MMU CELLS/CAPSULE PO SCH ×2 (08:00→19:39)
[2018-03-07] MEDS ORDERED: LIDOcaine 1%/PF 5ML 10 MG/ML VIAL ONE (08:17)
[2018-03-07] MEDS ORDERED: fentaNYL/PF 50MCG/1 ML 2ML syringe ONE (09:21)
[2018-03-07] MEDS ORDERED: MIDAZolam 5mg/5ml vial ONE (09:22)
[2018-03-07] MEDS ORDERED: propofol inj 20 ML IV ONE (10:24)
[2018-03-07] MEDS ORDERED: voritoxetine HBr tablet 5 MG TABLET PO ONE (15:00)
[2018-03-07] MEDS: bisacodyl 5mg tablet.DR PO SCH (19:40)
[2018-03-08 08:00] VITALS: BP 102/68
[2018-03-08] MEDS: lactobacillus rhamnosus 10,000 MMU CELLS/CAPSULE PO SCH ×2 (08:16→19:13)
[2018-03-08] MEDS: docusate sod 250mg capsule PO SCH ×2 (08:16→19:13)
[2018-03-08] MEDS: LORazepam 1 MG tablet PO SCH ×3 (08:16→19:13)
[2018-03-08] MEDS: memantine 5mg tablet PO SCH ×2 (08:16→19:13)
[2018-03-08] MEDS: voritoxetine HBr tablet 5 MG TABLET PO SCH (08:16)
[2018-03-08] MEDS: pantoprazole 40mg Tablet.DR PO SCH (08:17)
[2018-03-08] MEDS: Protein Shake (high protein) 240ml (8oz) cup PO SCH ×3 (08:19→18:00)
[2018-03-08] MEDS: bisacodyl 5mg tablet.DR PO SCH (19:13)
[2018-03-08 19:55] VITALS: BP 107/74
[2018-03-09 08:00] VITALS: BP 98/65
[2018-03-09] MEDS: voritoxetine HBr tablet 5 MG TABLET PO SCH (08:18)
[2018-03-09] MEDS: LORazepam 1 MG tablet PO SCH ×3 (08:19→20:51)
[2018-03-09] MEDS: lactobacillus rhamnosus 10,000 MMU CELLS/CAPSULE PO SCH ×2 (08:19→20:50)
[2018-03-09] MEDS: memantine 5mg tablet PO SCH ×2 (08:19→20:50)
[2018-03-09] MEDS: pantoprazole 40mg Tablet.DR PO SCH (08:19)
[2018-03-09] MEDS: docusate sod 250mg capsule PO SCH ×2 (08:19→20:51)
[2018-03-09] MEDS: Protein Shake (high protein) 240ml (8oz) cup PO SCH ×3 (08:20→17:47)
[2018-03-09 20:33] VITALS: BP 117/80
[2018-03-09] MEDS: bisacodyl 5mg tablet.DR PO SCH (20:51)
[2018-03-09] MEDS: mag hydrox/Alum hydrox/simeth 30ml oral suspension PO PRN (21:15)
[2018-03-10 08:00] VITALS: BP 111/66
[2018-03-10] MEDS: memantine 5mg tablet PO SCH ×2 (08:08→21:36)
[2018-03-10] MEDS: LORazepam 1 MG tablet PO SCH ×3 (08:09→21:29)
[2018-03-10] MEDS: docusate sod 250mg capsule PO SCH ×2 (08:10→21:29)
[2018-03-10] MEDS: pantoprazole 40mg Tablet.DR PO SCH (08:10)
[2018-03-10] MEDS: lactobacillus rhamnosus 10,000 MMU CELLS/CAPSULE PO SCH ×2 (08:11→21:29)
[2018-03-10] MEDS: voritoxetine HBr tablet 5 MG TABLET PO SCH (08:12)
[2018-03-10] MEDS: Protein Shake (high protein) 240ml (8oz) cup PO SCH ×3 (08:16→18:00)
[2018-03-10] MEDS: acetaminophen 325mg tablet PO PRN (08:26)
[2018-03-10 11:33] LABS: BASOPHILS % (AUTO) 0.2 % (0-1); EOSINOPHILS # (AUTO) 0.2 X10'3 (0-0.9); EOSINOPHILS % (AUTO) 2.7 % (0-6); HEMATOCRIT 43.3 % (42.0-52.0); HEMOGLOBIN 14.9 g/dl (14.0-17.9); LYMPHOCYTES # (AUTO) 1.6 X10'3 (1.1-4.8); LYMPHOCYTES % (AUTO) 27.1 % (21-51); MEAN CORPUSCULAR HEMOGLOBIN 31.4 PG (27.0-31.0); MEAN CORPUSCULAR HGB CONC 34.3 % (33.0-36.5); MEAN CORPUSCULAR VOLUME 91.6 FL (78-98); MEAN PLATELET VOLUME 8.1 FL (7.4-10.4); MONOCYTES # (AUTO) 0.4 X10'3 (0-0.9); MONOCYTES % (AUTO) 7.6 % (2-12); NEUTROPHILS # (AUTO) 3.7 X10'3 (1.8-7.7); NEUTROPHILS % (AUTO) 62.4 % (42-75); PLATELET COUNT 217 X10'3 (140-440); RED BLOOD COUNT 4.73 X10'6 (4.70-6.10); RED CELL DISTRIBUTION WIDTH 13.8 % (11.5-14.5); WHITE BLOOD COUNT 5.9 X10'3 (4.5-11.0)
[2018-03-10 11:47] LABS: ALANINE AMINOTRANSFERASE 33 U/L (12-78); ALBUMIN 3.3 G/DL (3.4-5.0); ALBUMIN/GLOBULIN RATIO 1.1 (1.1-1.5); ALKALINE PHOSPHATASE 73 IU/L (46-116); ANION GAP 4 (8-16); ASPARTATE AMINO TRANSFERASE 16 U/L (10-37); BILIRUBIN,TOTAL 0.3 MG/DL (0.1-1.0); BLOOD UREA NITROGEN 19 MG/DL (7-18); BUN/CREATININE RATIO 21.1 (5.4-32.0); CALCIUM 8.8 MG/DL (8.5-10.1); CHLORIDE 106 MMOL/L (99-107); GLUCOSE 97 MG/DL (70-104); POTASSIUM 4.1 MMOL/L (3.5-5.1); SODIUM 143 MMOL/L (135-145); TOTAL CARBON DIOXIDE 32.9 MMOL/L (24-32); TOTAL PROTEIN 6.2 G/DL (6.4-8.2); eGFR 86 ML/MIN
[2018-03-10] MEDS ORDERED: HYDROcodone/acetaminophen 5mg/325mg tablet PO ONE (11:50)
[2018-03-10 19:52] VITALS: BP 102/63
[2018-03-10] MEDS: bisacodyl 5mg tablet.DR PO SCH (21:29)
[2018-03-11 08:00] VITALS: BP 121/66
[2018-03-11] MEDS: LORazepam 1 MG tablet PO SCH ×3 (08:33→21:09)
[2018-03-11] MEDS: pantoprazole 40mg Tablet.DR PO SCH (08:33)
[2018-03-11] MEDS: voritoxetine HBr tablet 5 MG TABLET PO SCH (08:33)
[2018-03-11] MEDS: lactobacillus rhamnosus 10,000 MMU CELLS/CAPSULE PO SCH ×2 (08:33→21:09)
[2018-03-11] MEDS: acetaminophen 325mg tablet PO PRN (08:34)
[2018-03-11] MEDS: Protein Shake (high protein) 240ml (8oz) cup PO SCH ×3 (08:34→18:11)
[2018-03-11] MEDS: memantine 5mg tablet PO SCH ×2 (08:34→21:09)
[2018-03-11] MEDS: docusate sod 250mg capsule PO SCH ×2 (08:34→21:09)
[2018-03-11] MEDS: HYDROcodone/acetaminophen 5mg/325mg tablet PO PRN ×2 (09:32→21:09)
[2018-03-11 19:30] VITALS: BP 131/82
[2018-03-11] MEDS: sennosides 8.6mg tablet PO PRN (21:08)
[2018-03-11] MEDS: bisacodyl 5mg tablet.DR PO SCH (21:08)
[2018-03-12] MEDS: voritoxetine HBr tablet 5 MG TABLET PO SCH (08:27)
[2018-03-12] MEDS: lactobacillus rhamnosus 10,000 MMU CELLS/CAPSULE PO SCH ×2 (08:28→20:42)
[2018-03-12] MEDS: pantoprazole 40mg Tablet.DR PO SCH (08:28)
[2018-03-12] MEDS: LORazepam 1 MG tablet PO SCH ×3 (08:28→20:42)
[2018-03-12] MEDS: docusate sod 250mg capsule PO SCH ×2 (08:28→20:42)
[2018-03-12] MEDS: HYDROcodone/acetaminophen 5mg/325mg tablet PO PRN ×2 (08:29→15:13)
[2018-03-12] MEDS: memantine 5mg tablet PO SCH ×2 (08:29→20:42)
[2018-03-12] MEDS: Protein Shake (high protein) 240ml (8oz) cup PO SCH ×3 (08:29→18:06)
[2018-03-12 08:40] VITALS: BP 127/67
[2018-03-12 19:43] VITALS: BP 123/56
[2018-03-12] MEDS: bisacodyl 5mg tablet.DR PO SCH (20:43)
[2018-03-13] MEDS: Protein Shake (high protein) 240ml (8oz) cup PO SCH ×3 (08:00→18:00)
[2018-03-13 08:39] VITALS: BP 104/62
[2018-03-13] MEDS: lactobacillus rhamnosus 10,000 MMU CELLS/CAPSULE PO SCH ×2 (09:36→20:30)
[2018-03-13] MEDS: pantoprazole 40mg Tablet.DR PO SCH (09:36)
[2018-03-13] MEDS: docusate sod 250mg capsule PO SCH ×2 (09:36→20:30)
[2018-03-13] MEDS: LORazepam 1 MG tablet PO SCH ×3 (09:36→20:30)
[2018-03-13] MEDS: memantine 5mg tablet PO SCH ×2 (09:37→20:30)
[2018-03-13] MEDS: voritoxetine HBr tablet 5 MG TABLET PO SCH (09:37)
[2018-03-13 19:00] VITALS: BP 98/64
[2018-03-13] MEDS: bisacodyl 5mg tablet.DR PO SCH (20:30)
[2018-03-13] MEDS: acetaminophen 325mg tablet PO PRN (23:24)
[2018-03-14 08:00] VITALS: BP 111/65
[2018-03-14] MEDS: Protein Shake (high protein) 240ml (8oz) cup PO SCH ×3 (08:00→18:00)
[2018-03-14] MEDS: pantoprazole 40mg Tablet.DR PO SCH (08:56)
[2018-03-14] MEDS: voritoxetine HBr tablet 5 MG TABLET PO SCH (08:57)
[2018-03-14] MEDS: LORazepam 1 MG tablet PO SCH ×3 (08:57→20:12)
[2018-03-14] MEDS: docusate sod 250mg capsule PO SCH ×2 (08:57→20:12)
[2018-03-14] MEDS: memantine 5mg tablet PO SCH ×2 (08:57→20:12)
[2018-03-14] MEDS: lactobacillus rhamnosus 10,000 MMU CELLS/CAPSULE PO SCH ×2 (08:57→20:12)
[2018-03-14] MEDS: acetaminophen 325mg tablet PO PRN (08:58)
[2018-03-14 13:22] LABS: ALPHA-1-GLOBULIN, CSF 4.1 % (1.1-6.6); ALPHA-2-GLOBULIN, CSF 5.2 % (3.0-12.6); GAMMA GLOBULIN, CSF 6.2 % (3.0-13.0); PRE-ALBUMIN, CSF 2.7 % (2.2-7.1); PROTEIN, TOTAL, CSF 81.5 mg/dL (0.0-44.0)
[2018-03-14 19:00] VITALS: BP 109/70
[2018-03-14] MEDS: bisacodyl 5mg tablet.DR PO SCH (20:12)
[2018-03-15] MEDS: HYDROcodone/acetaminophen 5mg/325mg tablet PO PRN ×2 (00:09→16:26)
[2018-03-15 08:00] VITALS: BP 111/62
[2018-03-15] MEDS: memantine 5mg tablet PO SCH ×2 (08:00→19:51)
[2018-03-15] MEDS: Protein Shake (high protein) 240ml (8oz) cup PO SCH ×3 (08:00→18:48)
[2018-03-15] MEDS: pantoprazole 40mg Tablet.DR PO SCH (09:08)
[2018-03-15] MEDS: docusate sod 250mg capsule PO SCH ×2 (09:09→19:50)
[2018-03-15] MEDS: lactobacillus rhamnosus 10,000 MMU CELLS/CAPSULE PO SCH ×2 (09:09→19:50)
[2018-03-15] MEDS: voritoxetine HBr tablet 5 MG TABLET PO SCH (09:09)
[2018-03-15] MEDS: LORazepam 1 MG tablet PO SCH ×3 (09:09→19:51)
[2018-03-15] MEDS: acetaminophen 325mg tablet PO PRN ×2 (09:11→19:17)
[2018-03-15 19:00] VITALS: BP 113/58
[2018-03-15] MEDS: bisacodyl 5mg tablet.DR PO SCH (19:51)
[2018-03-15] MEDS ORDERED: normal saline 1000ml 1,000 ML IVB ONE (20:41)
[2018-03-15] MEDS ORDERED: acetaminophen 325mg tablet PO ONE (20:45)
[2018-03-15 22:20] LABS: BASOPHILS # (AUTO) 0.1 X10'3 (0-0.2); BASOPHILS % (AUTO) 0.8 % (0-1); EOSINOPHILS # (AUTO) 0.2 X10'3 (0-0.9); EOSINOPHILS % (AUTO) 2.7 % (0-6); HEMATOCRIT 40.9 % (42.0-52.0); HEMOGLOBIN 13.8 g/dl (14.0-17.9); LYMPHOCYTES # (AUTO) 1.7 X10'3 (1.1-4.8); LYMPHOCYTES % (AUTO) 20.3 % (21-51); MEAN CORPUSCULAR HEMOGLOBIN 30.9 PG (27.0-31.0); MEAN CORPUSCULAR HGB CONC 33.7 % (33.0-36.5); MEAN CORPUSCULAR VOLUME 91.8 FL (78-98); MEAN PLATELET VOLUME 9.2 FL (7.4-10.4); MONOCYTES # (AUTO) 0.6 X10'3 (0-0.9); MONOCYTES % (AUTO) 6.7 % (2-12); NEUTROPHILS # (AUTO) 5.9 X10'3 (1.8-7.7); NEUTROPHILS % (AUTO) 69.5 % (42-75); PLATELET COUNT 241 X10'3 (140-440); RED BLOOD COUNT 4.45 X10'6 (4.70-6.10); RED CELL DISTRIBUTION WIDTH 14.4 % (11.5-14.5); WHITE BLOOD COUNT 8.6 X10'3 (4.5-11.0)
[2018-03-15 22:43] LABS: ALANINE AMINOTRANSFERASE 34 U/L (12-78); ALBUMIN 3.3 G/DL (3.4-5.0); ALBUMIN/GLOBULIN RATIO 1.1 (1.1-1.5); ALKALINE PHOSPHATASE 85 IU/L (46-116); ANION GAP 6 (8-16); ASPARTATE AMINO TRANSFERASE 25 U/L (10-37); BILIRUBIN,TOTAL 0.2 MG/DL (0.1-1.0); BLOOD UREA NITROGEN 25 MG/DL (7-18); BUN/CREATININE RATIO 27.8 (5.4-32.0); CALCIUM 8.7 MG/DL (8.5-10.1); CHLORIDE 108 MMOL/L (99-107); GLUCOSE 107 MG/DL (70-104); POTASSIUM 4.2 MMOL/L (3.5-5.1); SODIUM 144 MMOL/L (135-145); TOTAL CARBON DIOXIDE 29.6 MMOL/L (24-32); TOTAL PROTEIN 6.2 G/DL (6.4-8.2); eGFR 86 ML/MIN
[2018-03-16 00:45] LABS: CLARITY,URINE SLIGHTLY CLOUDY (Clear); COLOR,URINE YELLOW (Yellow); GLUCOSE, URINE NEGATIVE (Neg); KETONES,URINE NEGATIVE (Neg); LEUKOCYTE ESTERASE ,URINE NEGATIVE (Neg); OCCULT BLOOD,URINE SMALL (Neg); PROTEIN,URINE TRACE mg/dl (Neg); UROBILINOGEN,URINE 0.2 E.U/dL (0.2-1.0)
[2018-03-16 00:54] LABS: NITRITES, URINE NEGATIVE (Neg); UA COLLECTION TYPE NON-SPECIFIED
[2018-03-16 00:55] LABS: BACTERIA,URINE FEW /HPF (Neg); MUCUS STRANDS FEW /LPF (Neg); SQUAMOUS EPITHELIAL CELL,UR FEW /LPF (FEW); WBC,URINE 0-4 /HPF (0-4)
[2018-03-16 07:55] VITALS: BP 114/61
[2018-03-16] MEDS: HYDROcodone/acetaminophen 5mg/325mg tablet PO PRN ×3 (08:08→21:35)
[2018-03-16] MEDS: voritoxetine HBr tablet 5 MG TABLET PO SCH (08:08)
[2018-03-16] MEDS: lactobacillus rhamnosus 10,000 MMU CELLS/CAPSULE PO SCH ×2 (08:09→20:05)
[2018-03-16] MEDS: docusate sod 250mg capsule PO SCH ×2 (08:09→20:05)
[2018-03-16] MEDS: LORazepam 1 MG tablet PO SCH ×3 (08:09→20:05)
[2018-03-16] MEDS: pantoprazole 40mg Tablet.DR PO SCH (08:09)
[2018-03-16] MEDS: memantine 5mg tablet PO SCH ×2 (08:10→20:05)
[2018-03-16] MEDS: Protein Shake (high protein) 240ml (8oz) cup PO SCH ×3 (08:10→19:30)
[2018-03-16 19:28] VITALS: BP 104/63
[2018-03-16] MEDS: bisacodyl 5mg tablet.DR PO SCH (20:05)
[2018-03-17] MEDS: voritoxetine HBr tablet 5 MG TABLET PO SCH (07:59)
[2018-03-17] MEDS: lactobacillus rhamnosus 10,000 MMU CELLS/CAPSULE PO SCH ×2 (07:59→21:54)
[2018-03-17] MEDS: docusate sod 250mg capsule PO SCH ×2 (07:59→21:54)
[2018-03-17] MEDS: memantine 5mg tablet PO SCH ×2 (07:59→21:53)
[2018-03-17] MEDS: pantoprazole 40mg Tablet.DR PO SCH (07:59)
[2018-03-17] MEDS: LORazepam 1 MG tablet PO SCH ×3 (07:59→21:54)
[2018-03-17 08:00] VITALS: BP 115/70
[2018-03-17] MEDS: Protein Shake (high protein) 240ml (8oz) cup PO SCH ×3 (08:04→18:00)
[2018-03-17] MEDS: HYDROcodone/acetaminophen 5mg/325mg tablet PO PRN ×3 (11:04→23:45)
[2018-03-17 20:00] VITALS: BP 124/69
[2018-03-17] MEDS: bisacodyl 5mg tablet.DR PO SCH (21:53)
[2018-03-17] MEDS: bisacodyl 10mg suppository rectal RC PRN (21:55)
[2018-03-18 08:00] VITALS: BP 105/60
[2018-03-18] MEDS: Protein Shake (high protein) 240ml (8oz) cup PO SCH ×3 (08:00→17:27)
[2018-03-18] MEDS: voritoxetine HBr tablet 5 MG TABLET PO SCH (09:11)
[2018-03-18] MEDS: memantine 5mg tablet PO SCH ×2 (09:11→21:08)
[2018-03-18] MEDS: LORazepam 1 MG tablet PO SCH ×3 (09:12→21:08)
[2018-03-18] MEDS: pantoprazole 40mg Tablet.DR PO SCH (09:12)
[2018-03-18] MEDS: docusate sod 250mg capsule PO SCH ×2 (09:12→21:07)
[2018-03-18] MEDS: lactobacillus rhamnosus 10,000 MMU CELLS/CAPSULE PO SCH ×2 (09:12→21:08)
[2018-03-18] MEDS: HYDROcodone/acetaminophen 5mg/325mg tablet PO PRN ×2 (09:12→14:51)
[2018-03-18 20:15] VITALS: BP 130/72
[2018-03-18] MEDS ORDERED: divalproex sod 250mg ER (24-hour) tablet PO SCH (21:00)
[2018-03-18] MEDS: bisacodyl 5mg tablet.DR PO SCH (21:07)
[2018-03-19 08:00] VITALS: BP 107/82
[2018-03-19] MEDS: pantoprazole 40mg Tablet.DR PO SCH (08:44)
[2018-03-19] MEDS: docusate sod 250mg capsule PO SCH ×2 (08:44→20:42)
[2018-03-19] MEDS: lactobacillus rhamnosus 10,000 MMU CELLS/CAPSULE PO SCH ×2 (08:44→20:42)
[2018-03-19] MEDS: memantine 5mg tablet PO SCH ×2 (08:45→20:43)
[2018-03-19] MEDS: LORazepam 1 MG tablet PO SCH ×3 (08:45→20:43)
[2018-03-19] MEDS: acetaminophen 325mg tablet PO PRN ×2 (08:45→12:40)
[2018-03-19] MEDS: voritoxetine HBr tablet 5 MG TABLET PO SCH (08:45)
[2018-03-19] MEDS: Protein Shake (high protein) 240ml (8oz) cup PO SCH ×3 (08:46→17:32)
[2018-03-19 19:12] VITALS: BP 109/62
[2018-03-19] MEDS: bisacodyl 5mg tablet.DR PO SCH (20:43)
[2018-03-19] MEDS: divalproex sod 125mg sprinkle cap PO SCH (20:43)
[2018-03-20 08:00] VITALS: BP 108/69
[2018-03-20] MEDS: LORazepam 1 MG tablet PO SCH ×3 (08:11→21:01)
[2018-03-20] MEDS: memantine 5mg tablet PO SCH ×2 (08:11→21:01)
[2018-03-20] MEDS: pantoprazole 40mg Tablet.DR PO SCH (08:11)
[2018-03-20] MEDS: lactobacillus rhamnosus 10,000 MMU CELLS/CAPSULE PO SCH ×2 (08:11→21:01)
[2018-03-20] MEDS: Protein Shake (high protein) 240ml (8oz) cup PO SCH ×3 (08:11→17:42)
[2018-03-20] MEDS: voritoxetine HBr tablet 5 MG TABLET PO SCH (08:11)
[2018-03-20] MEDS: docusate sod 250mg capsule PO SCH ×2 (08:11→21:01)
[2018-03-20] MEDS: bisacodyl 5mg tablet.DR PO SCH (21:02)
[2018-03-20] MEDS: divalproex sod 125mg sprinkle cap PO SCH (21:02)
[2018-03-21 08:00] VITALS: BP 102/70
[2018-03-21] MEDS: LORazepam 1 MG tablet PO SCH ×3 (08:07→19:28)
[2018-03-21] MEDS: docusate sod 250mg capsule PO SCH ×2 (08:07→19:28)
[2018-03-21] MEDS: lactobacillus rhamnosus 10,000 MMU CELLS/CAPSULE PO SCH ×2 (08:07→19:28)
[2018-03-21] MEDS: voritoxetine HBr tablet 5 MG TABLET PO SCH (08:07)
[2018-03-21] MEDS: pantoprazole 40mg Tablet.DR PO SCH (08:07)
[2018-03-21] MEDS: memantine 5mg tablet PO SCH ×2 (08:07→19:28)
[2018-03-21] MEDS: Protein Shake (high protein) 240ml (8oz) cup PO SCH ×3 (08:13→18:54)
[2018-03-21] MEDS: HYDROcodone/acetaminophen 5mg/325mg tablet PO PRN (13:34)
[2018-03-21] MEDS: divalproex sod 125mg sprinkle cap PO SCH (19:29)
[2018-03-21] MEDS: bisacodyl 5mg tablet.DR PO SCH (19:29)
[2018-03-22 08:04] VITALS: BP 106/58
[2018-03-22] MEDS: voritoxetine HBr tablet 5 MG TABLET PO SCH (08:34)
[2018-03-22] MEDS: pantoprazole 40mg Tablet.DR PO SCH (08:35)
[2018-03-22] MEDS: lactobacillus rhamnosus 10,000 MMU CELLS/CAPSULE PO SCH ×2 (08:35→19:41)
[2018-03-22] MEDS: memantine 5mg tablet PO SCH ×2 (08:35→19:41)
[2018-03-22] MEDS: LORazepam 1 MG tablet PO SCH ×3 (08:35→19:41)
[2018-03-22] MEDS: docusate sod 250mg capsule PO SCH ×2 (08:36→19:41)
[2018-03-22] MEDS: Protein Shake (high protein) 240ml (8oz) cup PO SCH ×3 (08:39→17:25)
[2018-03-22 19:00] VITALS: BP 105/58
[2018-03-22] MEDS: divalproex sod 125mg sprinkle cap PO SCH (19:41)
[2018-03-22] MEDS: bisacodyl 5mg tablet.DR PO SCH (19:41)
[2018-03-23 08:00] VITALS: BP 106/56
[2018-03-23] MEDS: lactobacillus rhamnosus 10,000 MMU CELLS/CAPSULE PO SCH ×2 (08:00→20:27)
[2018-03-23] MEDS: voritoxetine HBr tablet 5 MG TABLET PO SCH (08:15)
[2018-03-23] MEDS: memantine 5mg tablet PO SCH ×2 (08:16→20:27)
[2018-03-23] MEDS: LORazepam 1 MG tablet PO SCH ×3 (08:16→20:27)
[2018-03-23] MEDS: pantoprazole 40mg Tablet.DR PO SCH (08:17)
[2018-03-23] MEDS: docusate sod 250mg capsule PO SCH ×2 (08:17→20:27)
[2018-03-23] MEDS: Protein Shake (high protein) 240ml (8oz) cup PO SCH ×4 (08:24→18:02)
[2018-03-23] MEDS: acetaminophen 325mg tablet PO PRN (09:58)
[2018-03-23] MEDS: HYDROcodone/acetaminophen 5mg/325mg tablet PO PRN (13:28)
[2018-03-23 19:45] VITALS: BP 103/55
[2018-03-23] MEDS: divalproex sod 125mg sprinkle cap PO SCH (20:28)
[2018-03-23] MEDS: bisacodyl 5mg tablet.DR PO SCH (20:28)
[2018-03-24] MEDS: Protein Shake (high protein) 240ml (8oz) cup PO SCH ×3 (08:00→17:53)
[2018-03-24 08:11] VITALS: BP 108/78
[2018-03-24] MEDS: voritoxetine HBr tablet 5 MG TABLET PO SCH (08:18)
[2018-03-24] MEDS: LORazepam 1 MG tablet PO SCH ×3 (08:19→20:15)
[2018-03-24] MEDS: memantine 5mg tablet PO SCH ×2 (08:19→20:16)
[2018-03-24] MEDS: lactobacillus rhamnosus 10,000 MMU CELLS/CAPSULE PO SCH ×2 (08:19→20:15)
[2018-03-24] MEDS: docusate sod 250mg capsule PO SCH ×2 (08:19→20:15)
[2018-03-24] MEDS: pantoprazole 40mg Tablet.DR PO SCH (08:19)
[2018-03-24] MEDS: acetaminophen 325mg tablet PO PRN (15:31)
[2018-03-24 19:50] VITALS: BP 122/67
[2018-03-24] MEDS: bisacodyl 5mg tablet.DR PO SCH (20:15)
[2018-03-24] MEDS: divalproex sod 125mg sprinkle cap PO SCH (20:15)
[2018-03-25] MEDS: memantine 5mg tablet PO SCH ×2 (07:59→20:05)
[2018-03-25] MEDS: Protein Shake (high protein) 240ml (8oz) cup PO SCH ×4 (07:59→18:00)
[2018-03-25] MEDS: docusate sod 250mg capsule PO SCH ×2 (07:59→20:05)
[2018-03-25] MEDS: pantoprazole 40mg Tablet.DR PO SCH (07:59)
[2018-03-25] MEDS: lactobacillus rhamnosus 10,000 MMU CELLS/CAPSULE PO SCH ×2 (07:59→20:04)
[2018-03-25] MEDS: LORazepam 1 MG tablet PO SCH ×3 (07:59→20:05)
[2018-03-25] MEDS: voritoxetine HBr tablet 5 MG TABLET PO SCH (07:59)
[2018-03-25 08:00] VITALS: BP 107/58
[2018-03-25 19:46] VITALS: BP 118/88
[2018-03-25] MEDS: bisacodyl 5mg tablet.DR PO SCH (20:05)
[2018-03-25] MEDS: divalproex sod 125mg sprinkle cap PO SCH (20:05)
[2018-03-26] MEDS: docusate sod 250mg capsule PO SCH ×2 (08:01→20:28)
[2018-03-26] MEDS: voritoxetine HBr tablet 5 MG TABLET PO SCH (08:02)
[2018-03-26] MEDS: memantine 5mg tablet PO SCH ×2 (08:02→20:28)
[2018-03-26] MEDS: pantoprazole 40mg Tablet.DR PO SCH (08:02)
[2018-03-26] MEDS: lactobacillus rhamnosus 10,000 MMU CELLS/CAPSULE PO SCH ×2 (08:02→20:28)
[2018-03-26] MEDS: LORazepam 1 MG tablet PO SCH ×3 (08:02→20:28)
[2018-03-26 08:07] VITALS: BP 122/66
[2018-03-26] MEDS: Protein Shake (high protein) 240ml (8oz) cup PO SCH ×3 (08:09→17:28)
[2018-03-26 12:50] VITALS: BP 95/58
[2018-03-26 13:08] VITALS: BP 120/55
[2018-03-26 19:00] VITALS: BP 118/85
[2018-03-26 19:30] VITALS: BP 100/70
[2018-03-26] MEDS: bisacodyl 5mg tablet.DR PO SCH (20:28)
[2018-03-26] MEDS: divalproex sod 125mg sprinkle cap PO SCH (20:28)
[2018-03-26] MEDS: acetaminophen 325mg tablet PO PRN (22:47)
[2018-03-27] MEDS: pantoprazole 40mg Tablet.DR PO SCH (08:09)
[2018-03-27] MEDS: lactobacillus rhamnosus 10,000 MMU CELLS/CAPSULE PO SCH ×2 (08:09→20:34)
[2018-03-27] MEDS: docusate sod 250mg capsule PO SCH ×2 (08:09→20:34)
[2018-03-27] MEDS: memantine 5mg tablet PO SCH ×2 (08:09→20:34)
[2018-03-27] MEDS: LORazepam 1 MG tablet PO SCH ×3 (08:09→20:34)
[2018-03-27 08:22] VITALS: BP 98/51
[2018-03-27] MEDS: voritoxetine HBr tablet 5 MG TABLET PO SCH (08:24)
[2018-03-27] MEDS: Protein Shake (high protein) 240ml (8oz) cup PO SCH ×3 (08:24→17:36)
[2018-03-27 08:49] LABS: ALANINE AMINOTRANSFERASE 31 U/L (12-78); ALBUMIN 3.5 G/DL (3.4-5.0); ALBUMIN/GLOBULIN RATIO 1.1 (1.1-1.5); ALKALINE PHOSPHATASE 88 IU/L (46-116); ANION GAP 6 (8-16); ASPARTATE AMINO TRANSFERASE 18 U/L (10-37); BILIRUBIN,TOTAL 0.5 MG/DL (0.1-1.0); BLOOD UREA NITROGEN 20 MG/DL (7-18); BUN/CREATININE RATIO 20.4 (5.4-32.0); CALCIUM 9.2 MG/DL (8.5-10.1); CHLORIDE 104 MMOL/L (99-107); CREATININE 0.98 MG/DL (0.60-1.10); GLUCOSE 92 MG/DL (70-104); POTASSIUM 4.5 MMOL/L (3.5-5.1); SODIUM 145 MMOL/L (135-145); TOTAL CARBON DIOXIDE 35.3 MMOL/L (24-32); TOTAL PROTEIN 6.7 G/DL (6.4-8.2); eGFR 78 ML/MIN
[2018-03-27 19:00] VITALS: BP 111/65
[2018-03-27] MEDS: divalproex sod 125mg sprinkle cap PO SCH (20:34)
[2018-03-27] MEDS: bisacodyl 5mg tablet.DR PO SCH (20:34)
[2018-03-27] MEDS: acetaminophen 325mg tablet PO PRN (20:35)
[2018-03-28 07:40] VITALS: BP 110/56
[2018-03-28] MEDS: voritoxetine HBr tablet 5 MG TABLET PO SCH (08:20)
[2018-03-28] MEDS: pantoprazole 40mg Tablet.DR PO SCH (08:20)
[2018-03-28] MEDS: docusate sod 250mg capsule PO SCH ×2 (08:20→20:28)
[2018-03-28] MEDS: LORazepam 1 MG tablet PO SCH ×3 (08:20→20:27)
[2018-03-28] MEDS: lactobacillus rhamnosus 10,000 MMU CELLS/CAPSULE PO SCH ×2 (08:20→20:27)
[2018-03-28] MEDS: Protein Shake (high protein) 240ml (8oz) cup PO SCH ×3 (08:20→18:01)
[2018-03-28] MEDS: memantine 5mg tablet PO SCH ×2 (08:20→20:27)
[2018-03-28 19:00] VITALS: BP 95/54
[2018-03-28 19:30] VITALS: BP 100/60
[2018-03-28] MEDS: bisacodyl 5mg tablet.DR PO SCH (20:27)
[2018-03-28] MEDS: divalproex sod 125mg sprinkle cap PO SCH (20:28)
[2018-03-28] MEDS: acetaminophen 325mg tablet PO PRN (20:29)
[2018-03-29] MEDS: HYDROcodone/acetaminophen 5mg/325mg tablet PO PRN ×2 (03:59→07:57)
[2018-03-29] MEDS: voritoxetine HBr tablet 5 MG TABLET PO SCH (07:56)
[2018-03-29] MEDS: docusate sod 250mg capsule PO SCH ×2 (07:57→20:46)
[2018-03-29] MEDS: LORazepam 1 MG tablet PO SCH ×3 (07:57→20:46)
[2018-03-29] MEDS: pantoprazole 40mg Tablet.DR PO SCH (07:57)
[2018-03-29] MEDS: memantine 5mg tablet PO SCH (07:57)
[2018-03-29] MEDS: lactobacillus rhamnosus 10,000 MMU CELLS/CAPSULE PO SCH ×2 (07:58→20:47)
[2018-03-29] MEDS: Protein Shake (high protein) 240ml (8oz) cup PO SCH ×4 (07:58→19:11)
[2018-03-29 08:00] VITALS: BP 100/61
[2018-03-29 19:00] VITALS: BP 105/67
[2018-03-29] MEDS: bisacodyl 5mg tablet.DR PO SCH (20:46)
[2018-03-29] MEDS: divalproex sod 125mg sprinkle cap PO SCH (20:47)
[2018-03-30 08:00] VITALS: BP 107/70
[2018-03-30] MEDS: docusate sod 250mg capsule PO SCH ×2 (08:18→19:56)
[2018-03-30] MEDS: pantoprazole 40mg Tablet.DR PO SCH (08:18)
[2018-03-30] MEDS: lactobacillus rhamnosus 10,000 MMU CELLS/CAPSULE PO SCH ×2 (08:18→19:56)
[2018-03-30] MEDS: voritoxetine HBr tablet 5 MG TABLET PO SCH (08:18)
[2018-03-30] MEDS: LORazepam 1 MG tablet PO SCH ×3 (08:18→20:25)
[2018-03-30] MEDS ORDERED: glycerin ADULT rectal suppository RC ONE (09:40)
[2018-03-30] MEDS ORDERED: glycerin pediatric rectal suppository RC ONE (10:45)
[2018-03-30] MEDS: Protein Shake (high protein) 240ml (8oz) cup PO SCH ×2 (13:07→18:00)
[2018-03-30 19:54] VITALS: BP 116/70
[2018-03-30] MEDS: bisacodyl 5mg tablet.DR PO SCH (20:25)
[2018-03-30] MEDS: divalproex sod 125mg sprinkle cap PO SCH (20:25)
[2018-03-31 08:00] VITALS: BP 112/63
[2018-03-31] MEDS: LORazepam 1 MG tablet PO SCH ×3 (08:13→20:30)
[2018-03-31] MEDS: docusate sod 250mg capsule PO SCH ×2 (08:13→20:30)
[2018-03-31] MEDS: lactobacillus rhamnosus 10,000 MMU CELLS/CAPSULE PO SCH ×2 (08:13→20:29)
[2018-03-31] MEDS: pantoprazole 40mg Tablet.DR PO SCH (08:13)
[2018-03-31] MEDS: voritoxetine HBr tablet 5 MG TABLET PO SCH (08:20)
[2018-03-31] MEDS: Protein Shake (high protein) 240ml (8oz) cup PO SCH ×3 (08:21→10:21)
[2018-03-31 20:00] VITALS: BP 148/92
[2018-03-31] MEDS: divalproex sod 125mg sprinkle cap PO SCH (20:30)
[2018-03-31] MEDS: bisacodyl 5mg tablet.DR PO SCH (20:36)
[2018-04-01] MEDS: HYDROcodone/acetaminophen 5mg/325mg tablet PO PRN (00:03)
[2018-04-01 08:00] VITALS: BP 107/69
[2018-04-01] MEDS: pantoprazole 40mg Tablet.DR PO SCH (08:07)
[2018-04-01] MEDS: voritoxetine HBr tablet 5 MG TABLET PO SCH (08:07)
[2018-04-01] MEDS: docusate sod 250mg capsule PO SCH ×2 (08:07→20:00)
[2018-04-01] MEDS: LORazepam 1 MG tablet PO SCH ×3 (08:07→21:11)
[2018-04-01] MEDS: lactobacillus rhamnosus 10,000 MMU CELLS/CAPSULE PO SCH ×2 (08:07→20:00)
[2018-04-01] MEDS: Protein Shake (high protein) 240ml (8oz) cup PO SCH (18:00)
[2018-04-01 20:00] VITALS: BP 99/75
[2018-04-01] MEDS: divalproex sod 125mg sprinkle cap PO SCH (21:11)
[2018-04-01] MEDS: bisacodyl 5mg tablet.DR PO SCH (21:11)
[2018-04-02] MEDS: Protein Shake (high protein) 240ml (8oz) cup PO SCH ×3 (08:00→18:05)
[2018-04-02 08:15] VITALS: BP 100/60
[2018-04-02] MEDS: lactobacillus rhamnosus 10,000 MMU CELLS/CAPSULE PO SCH (08:57)
[2018-04-02] MEDS: docusate sod 250mg capsule PO SCH ×2 (08:57→20:17)
[2018-04-02] MEDS: HYDROcodone/acetaminophen 5mg/325mg tablet PO PRN (09:00)
[2018-04-02] MEDS: voritoxetine HBr tablet 5 MG TABLET PO SCH (09:01)
[2018-04-02] MEDS: pantoprazole 40mg Tablet.DR PO SCH (09:01)
[2018-04-02] MEDS: LORazepam 1 MG tablet PO SCH ×3 (09:01→20:17)
[2018-04-02] MEDS: bisacodyl 5mg tablet.DR PO SCH (20:23)
[2018-04-03] MEDS: docusate sod 250mg capsule PO SCH ×2 (08:08→20:17)
[2018-04-03] MEDS: LORazepam 1 MG tablet PO SCH ×2 (08:08→13:15)
[2018-04-03] MEDS: pantoprazole 40mg Tablet.DR PO SCH (08:08)
[2018-04-03] MEDS: Protein Shake (high protein) 240ml (8oz) cup PO SCH ×3 (08:08→18:02)
[2018-04-03] MEDS: voritoxetine HBr tablet 5 MG TABLET PO SCH (08:08)
[2018-04-03 08:28] VITALS: BP 123/66
[2018-04-03] MEDS: sennosides 8.6mg tablet PO PRN (13:15)
[2018-04-03 19:00] VITALS: BP 107/69
[2018-04-03] MEDS: LORazepam 0.5 MG tablet PO SCH (20:17)
[2018-04-03] MEDS: bisacodyl 5mg tablet.DR PO SCH (20:18)
[2018-04-03] MEDS: bisacodyl 10mg suppository rectal RC PRN (20:18)
[2018-04-04 08:08] VITALS: BP 106/61
[2018-04-04] MEDS: HYDROcodone/acetaminophen 5mg/325mg tablet PO PRN ×3 (08:11→23:20)
[2018-04-04] MEDS: pantoprazole 40mg Tablet.DR PO SCH (08:12)
[2018-04-04] MEDS: docusate sod 250mg capsule PO SCH ×2 (08:12→20:18)
[2018-04-04] MEDS: voritoxetine HBr tablet 5 MG TABLET PO SCH (08:12)
[2018-04-04] MEDS: LORazepam 0.5 MG tablet PO SCH ×4 (08:12→20:18)
[2018-04-04] MEDS: Protein Shake (high protein) 240ml (8oz) cup PO SCH ×3 (08:15→18:00)
[2018-04-04 20:00] VITALS: BP 109/66
[2018-04-04] MEDS ORDERED: dronabinol 2.5mg capsule PO SCH (20:00)
[2018-04-04] MEDS: bisacodyl 5mg tablet.DR PO SCH (20:18)
[2018-04-04] MEDS: acetaminophen 325mg tablet PO PRN (20:23)
[2018-04-04] MEDS ORDERED: lithium carbonate 300mg SR tablet (LithoBID) PO SCH (21:00)
[2018-04-05 00:25] VITALS: BP 123/70
[2018-04-05 00:45] VITALS: BP 114/64
[2018-04-05 01:00] VITALS: BP 100/60
[2018-04-05 01:10] LABS: ABG BASE EXCESS 6.3 mmol/L (-2.0-3.0); ABG HCO3 32.7 mmol/L (22.0-26.0); ABG OXYGEN SATURATION 93.2 % (95-98); ABG PCO2 (T) 53.9 mmHg (35.0-48.0); ABG PH (T) 7.403 (7.350-7.450); ABG PO2 (T) 68.4 mmHg (83-108); FCOHb 0.5 % (0.5-1.5); FLOW 4 L/min; FMetHb 0.3 % (0.3-1.12); FO2Hb 92.5 % (94-100); PATIENT TEMPERATURE 37.3; TOTAL HEMOGLOBIN 16.2 G/dl (14.0-18.0)
[2018-04-05 01:15] VITALS: BP 100/61
[2018-04-05 01:30] VITALS: BP 102/60
[2018-04-05 01:32] LABS: BASOPHILS % (AUTO) 0.3 % (0-1); EOSINOPHILS % (AUTO) 0.1 % (0-6); HEMATOCRIT 46.8 % (42.0-52.0); HEMOGLOBIN 15.6 g/dl (14.0-17.9); LYMPHOCYTES # (AUTO) 0.6 X10'3 (1.1-4.8); LYMPHOCYTES % (AUTO) 6.7 % (21-51); MEAN CORPUSCULAR HEMOGLOBIN 30.7 PG (27.0-31.0); MEAN CORPUSCULAR HGB CONC 33.3 % (33.0-36.5); MEAN CORPUSCULAR VOLUME 92.4 FL (78-98); MEAN PLATELET VOLUME 9.4 FL (7.4-10.4); MONOCYTES # (AUTO) 0.4 X10'3 (0-0.9); MONOCYTES % (AUTO) 5.4 % (2-12); NEUTROPHILS # (AUTO) 7.3 X10'3 (1.8-7.7); NEUTROPHILS % (AUTO) 87.5 % (42-75); PLATELET COUNT 208 X10'3 (140-440); RED BLOOD COUNT 5.07 X10'6 (4.70-6.10); RED CELL DISTRIBUTION WIDTH 13.4 % (11.5-14.5); WHITE BLOOD COUNT 8.3 X10'3 (4.5-11.0)
[2018-04-05 01:44] LABS: ALBUMIN 3.7 G/DL (3.4-5.0); ANION GAP 9 (8-16); BLOOD UREA NITROGEN 32 MG/DL (7-18); BUN/CREATININE RATIO 29.6 (5.4-32.0); CALCIUM 9.4 MG/DL (8.5-10.1); CHLORIDE 108 MMOL/L (99-107); CREATININE 1.08 MG/DL (0.60-1.10); GLUCOSE 134 MG/DL (70-104); SODIUM 149 MMOL/L (135-145); TOTAL CARBON DIOXIDE 32.5 MMOL/L (24-32); TROPONIN I < 0.04 NG/ML (0.0-0.05); eGFR 70 ML/MIN
[2018-04-05 01:52] LABS: POTASSIUM 4.1 MMOL/L (3.5-5.1)
[2018-04-05] MEDS ORDERED: voritoxetine HBr tablet 5 MG TABLET PO SCH (08:00)
[2018-04-05] MEDS ORDERED: PANT-47 PO (10:42)
[2018-04-05] MEDS ORDERED: VORT10TA PO (10:42)
[2018-04-05] MEDS ORDERED: DOCU-28 PO (10:42)
[2018-04-05] MEDS ORDERED: DRON2.5C PO (10:42)
[2018-04-05] MEDS ORDERED: HYDR-4383 PO (10:42)
[2018-04-05] MEDS ORDERED: BISA10SU60 RC (10:42)
[2018-04-05] MEDS ORDERED: LIT300C PO (10:42)
== END 2018-04-05 01:30 | disposition short-term general hospital (02) | DRG 750 ==
LOC: ADULT MH 14:00 → EEVIPCON 14:00 → ADULT MH 02-09 11:46
PROVIDERS: ADMIT Psychiatry & Neurology Psychiatry; ATTEND Psychiatry & Neurology Psychiatry
PROC: 009U3ZX Drainage of Spinal Canal, Percutaneous Approach, Diagnostic (ICD-10-PCS; principal; 2018-03-07)
PROC: B01B1ZZ Fluoroscopy of Spinal Cord using Low Osmolar Contrast (ICD-10-PCS; 2018-03-07)
DX: F20.2 Catatonic schizophrenia (principal); E43 Unspecified severe protein-calorie malnutrition; G93.40 Encephalopathy, unspecified; E78.5 Hyperlipidemia, unspecified; Z60.2 Problems related to living alone; N39.0 Urinary tract infection, site not specified; K21.9 Gastro-esophageal reflux disease without esophagitis; F32.9 Major depressive disorder, single episode, unspecified; R32 Unspecified urinary incontinence; Z79.899 Other long term (current) drug therapy; Z68.1 Body mass index [BMI] 19.9 or less, adult
CPT/HCPCS: 36415; 36600; 62270; 70553; 71045; 77003; 80048; 80053; 80061; 81001; 82164; 82390; 82550; 82607; 82746; 82803; 82948; 83036; 83605; 83655; 83735; 83873; 84100; 84157; 84166; 84443; 84484; 85018; 85025; 85610; 85730; 86335; 87070; 87077; 87081; 87088; 87186; 87880; 92616; 93005; 95816; 97116; 97161; A4353; A6212; A6213; A7000; A9579; J0696; J2001; J2060; J2250; J2704; J3010; J7030; J7070; J7120; Q0167

== ENCOUNTER 2018-04-05 01:20 | Inpatient (IN) | payer MEDICAID ==
[~2018-04-05] VITALS: Ht 172.7 cm; Wt 60.9 kg
[2018-04-05] VITALS (16 sets, daily range): BP systolic 82–119; BP diastolic 49–80
[2018-04-05] MEDS ORDERED: normal saline 1000ml 1,000 ML IV SCH ×2 (01:56→02:54)
[2018-04-05] MEDS ORDERED: normal saline 1000ml 1,000 ML IVB ONE (02:00)
[2018-04-05] MEDS ORDERED: mag hydrox/Alum hydrox/simeth 30ml oral suspension PO PRN (02:55)
[2018-04-05] MEDS ORDERED: acetaminophen 325mg tablet PO PRN ×2 (02:55)
[2018-04-05] MEDS ORDERED: diphenhydrAMINE 50 mg/ml inj IV PRN (02:55)
[2018-04-05] MEDS ORDERED: HYDROmorphone 1 mg/ml syringe IV PRN ×2 (02:55)
[2018-04-05] MEDS ORDERED: diphenhydrAMINE 25mg capsule PO PRN (02:55)
[2018-04-05] MEDS ORDERED: metoclopramide 5 mg/ml inj IV PRN (02:55)
[2018-04-05] MEDS ORDERED: HYDROcodone/acetaminophen 5mg/325mg tablet PO PRN (02:55)
[2018-04-05] MEDS ORDERED: magnesium hydroxide 30ml (MOM) UD suspension PO PRN (02:55)
[2018-04-05] MEDS ORDERED: HYDROcodone/acetaminophen 10/325mg tab PO PRN (02:55)
[2018-04-05] MEDS ORDERED: morphine 2 MG/ML inj. syringe IV PRN ×2 (02:55)
[2018-04-05] MEDS ORDERED: ondansetron/PF 4mg/2ml inj IV PRN (02:55)
[2018-04-05] MEDS ORDERED: bisacodyl 10mg suppository rectal RC PRN (02:55)
[2018-04-05] MEDS ORDERED: dextrose 5%-normal saline 1,000 ML IV SCH (06:50)
[2018-04-05 06:51] LABS: ABG BASE EXCESS 4.6 mmol/L (-2.0-3.0); ABG HCO3 30.5 mmol/L (22.0-26.0); ABG OXYGEN SATURATION 95.6 % (95-98); ABG PCO2 (T) 49.8 mmHg (35.0-48.0); ABG PH (T) 7.405 (7.350-7.450); ABG PO2 (T) 79.9 mmHg (83-108); FCOHb 0.4 % (0.5-1.5); FMetHb 0.2 % (0.3-1.12); MINUTE VOLUME 10 L/min; RESPIRATORY RATE 14 b/min; RESPIRATORY RATE (OBSERVED) 29 b/min; TIDAL VOLUME 433 mL; TOTAL HEMOGLOBIN 14.7 G/dl (14.0-18.0)
[2018-04-05 07:05] LABS: INR 1.1 INR; PARTIAL THROMBOPLASTIN TIME 29 SECONDS (22-32); PROTHROMBIN TIME 11.1 SECONDS (9.0-12.0)
[2018-04-05 07:34] LABS: ALANINE AMINOTRANSFERASE 57 U/L (12-78); ALBUMIN 3.6 G/DL (3.4-5.0); ALKALINE PHOSPHATASE 86 IU/L (46-116); ANION GAP 11 (8-16); ASPARTATE AMINO TRANSFERASE 25 U/L (10-37); BILIRUBIN,TOTAL 0.5 MG/DL (0.1-1.0); BLOOD UREA NITROGEN 29 MG/DL (7-18); BUN/CREATININE RATIO 26.6 (5.4-32.0); CALCIUM 8.9 MG/DL (8.5-10.1); CHLORIDE 110 MMOL/L (99-107); CREATININE 1.09 MG/DL (0.60-1.10); GLUCOSE 169 MG/DL (70-104); POTASSIUM 3.8 MMOL/L (3.5-5.1); SODIUM 151 MMOL/L (135-145); TOTAL CARBON DIOXIDE 29.6 MMOL/L (24-32); TOTAL PROTEIN 7.2 G/DL (6.4-8.2); eGFR 69 ML/MIN
[2018-04-05 07:39] LABS: BASOPHILS % (AUTO) 0.2 % (0-1); EOSINOPHILS % (AUTO) 0 % (0-6); HEMATOCRIT 45.3 % (42.0-52.0); HEMOGLOBIN 15.4 g/dl (14.0-17.9); LYMPHOCYTES # (AUTO) 0.9 X10'3 (1.1-4.8); LYMPHOCYTES % (AUTO) 10.3 % (21-51); MEAN CORPUSCULAR HEMOGLOBIN 31.4 PG (27.0-31.0); MEAN CORPUSCULAR HGB CONC 34.1 % (33.0-36.5); MEAN CORPUSCULAR VOLUME 92.1 FL (78-98); MEAN PLATELET VOLUME 10.1 FL (7.4-10.4); MONOCYTES # (AUTO) 0.3 X10'3 (0-0.9); MONOCYTES % (AUTO) 3.8 % (2-12); NEUTROPHILS # (AUTO) 7.4 X10'3 (1.8-7.7); NEUTROPHILS % (AUTO) 85.7 % (42-75); PLATELET COUNT 244 X10'3 (140-440); RED BLOOD COUNT 4.91 X10'6 (4.70-6.10); RED CELL DISTRIBUTION WIDTH 13.5 % (11.5-14.5); WHITE BLOOD COUNT 8.6 X10'3 (4.5-11.0)
[2018-04-05] MEDS: docusate sod 100mg capsule PO SCH ×2 (08:00→20:00)
[2018-04-05 08:21] LABS: TOTAL CELLS COUNTED 100
[2018-04-05 08:22] LABS: PLATELET ESTIMATE NORMAL
[2018-04-05] MEDS ORDERED: iohexol 350MG/ML 100ml bottle IV ONE (09:19)
[2018-04-05] MEDS ORDERED: LORazepam 1 MG tablet PO PRN (09:30)
[2018-04-05 09:32] LABS: D-DIMER 0.85 MG/L FEU (0-0.50)
[2018-04-05] MEDS ORDERED: voritoxetine HBr tablet 10 MG TABLET PO SCH (10:00)
[2018-04-05] MEDS ORDERED: LORazepam 2 mg/ml vial IV ONE (10:05)
[2018-04-05] MEDS ORDERED: voritoxetine HBr tablet 5 MG TABLET PO SCH (10:15)
[2018-04-05] MEDS: dextrose 5%-water 1,000 ML IV SCH (10:16)
[2018-04-05] MEDS ORDERED: voritoxetine HBr tablet 5 MG TABLET PO ONE (10:20)
[2018-04-05] MEDS: cefepime 1GM/NS ADD-VANTAGE 100 ML IV SCH ×3 (10:21→23:33)
[2018-04-05] MEDS: heparin, porcine 5000 units/ml vial SQ SCH ×2 (10:32→21:59)
[2018-04-05] MEDS: metroNIDAZOLE-Flagyl 500mg/NS 100 ML IV SCH ×2 (10:32→16:32)
[2018-04-05] MEDS ORDERED: DOCU-28 PO (10:42)
[2018-04-05] MEDS ORDERED: VORT10TA PO (10:42)
[2018-04-05] MEDS ORDERED: PANT-47 PO (10:42)
[2018-04-05] MEDS ORDERED: BISA10SU60 RC (10:42)
[2018-04-05] MEDS ORDERED: LIT300C PO (10:42)
[2018-04-05] MEDS ORDERED: HYDR-4383 PO (10:42)
[2018-04-05] MEDS ORDERED: DRON2.5C PO (10:42)
[2018-04-05] MEDS ORDERED: LORazepam 2 mg/ml vial IV PRN (17:15)
[2018-04-05 19:50] LABS: ANION GAP 6 (8-16); BLOOD UREA NITROGEN 22 MG/DL (7-18); BUN/CREATININE RATIO 24.7 (5.4-32.0); CALCIUM 8.8 MG/DL (8.5-10.1); CHLORIDE 111 MMOL/L (99-107); CREATININE 0.89 MG/DL (0.60-1.10); GLUCOSE 115 MG/DL (70-104); POTASSIUM 3.6 MMOL/L (3.5-5.1); SODIUM 148 MMOL/L (135-145); TOTAL CARBON DIOXIDE 30.7 MMOL/L (24-32); eGFR 87 ML/MIN
[2018-04-05] MEDS: lactobacillus rhamnosus 10,000 MMU CELLS/CAPSULE PO SCH (20:00)
[2018-04-05] MEDS ORDERED: lithium carbonate 300mg SR tablet (LithoBID) PO SCH (21:00)
[2018-04-05] MEDS ORDERED: temazepam 15mg capsule PO PRN (21:00)
[2018-04-06] VITALS (9 sets, daily range): BP systolic 100–117; BP diastolic 52–67
[2018-04-06] MEDS: metroNIDAZOLE-Flagyl 500mg/NS 100 ML IV SCH ×3 (00:23→17:39)
[2018-04-06] MEDS: ipratropium/albuterol 3ml nebule NEB PRN ×2 (00:59→22:52)
[2018-04-06 04:52] LABS: BASOPHILS % (AUTO) 0.3 % (0-1); EOSINOPHILS % (AUTO) 0.4 % (0-6); HEMATOCRIT 41.1 % (42.0-52.0); HEMOGLOBIN 13.5 g/dl (14.0-17.9); LYMPHOCYTES # (AUTO) 0.7 X10'3 (1.1-4.8); LYMPHOCYTES % (AUTO) 9.8 % (21-51); MEAN CORPUSCULAR HEMOGLOBIN 30.6 PG (27.0-31.0); MEAN CORPUSCULAR HGB CONC 32.8 % (33.0-36.5); MEAN CORPUSCULAR VOLUME 93.3 FL (78-98); MEAN PLATELET VOLUME 9.4 FL (7.4-10.4); MONOCYTES # (AUTO) 0.3 X10'3 (0-0.9); MONOCYTES % (AUTO) 4.6 % (2-12); NEUTROPHILS # (AUTO) 5.7 X10'3 (1.8-7.7); NEUTROPHILS % (AUTO) 84.9 % (42-75); PLATELET COUNT 210 X10'3 (140-440); RED CELL DISTRIBUTION WIDTH 14.1 % (11.5-14.5); WHITE BLOOD COUNT 6.8 X10'3 (4.5-11.0)
[2018-04-06 05:17] LABS: ALANINE AMINOTRANSFERASE 36 U/L (12-78); ALBUMIN 3.1 G/DL (3.4-5.0); ALBUMIN/GLOBULIN RATIO 0.9 (1.1-1.5); ALKALINE PHOSPHATASE 70 IU/L (46-116); ANION GAP 6 (8-16); ASPARTATE AMINO TRANSFERASE 16 U/L (10-37); BILIRUBIN,TOTAL 0.4 MG/DL (0.1-1.0); BLOOD UREA NITROGEN 20 MG/DL (7-18); BUN/CREATININE RATIO 20.6 (5.4-32.0); CALCIUM 9.2 MG/DL (8.5-10.1); CHLORIDE 109 MMOL/L (99-107); CREATININE 0.97 MG/DL (0.60-1.10); GLUCOSE 138 MG/DL (70-104); POTASSIUM 3.7 MMOL/L (3.5-5.1); SODIUM 147 MMOL/L (135-145); TOTAL CARBON DIOXIDE 32.5 MMOL/L (24-32); TOTAL PROTEIN 6.6 G/DL (6.4-8.2); eGFR 79 ML/MIN
[2018-04-06] MEDS: dextrose 5%-water 1,000 ML IV SCH ×2 (05:49→12:45)
[2018-04-06 06:03] LABS: NUCLEATED RED BLOOD CELLS 1 /100WBC (0-0); TOTAL CELLS COUNTED 100
[2018-04-06 06:04] LABS: PLATELET ESTIMATE NORMAL
[2018-04-06] MEDS: docusate sod 100mg capsule PO SCH ×2 (08:00→20:00)
[2018-04-06] MEDS: lactobacillus rhamnosus 10,000 MMU CELLS/CAPSULE PO SCH ×2 (08:00→20:17)
[2018-04-06] MEDS: cefepime 1GM/NS ADD-VANTAGE 100 ML IV SCH ×2 (08:14→17:39)
[2018-04-06] MEDS: heparin, porcine 5000 units/ml vial SQ SCH ×2 (08:17→20:18)
[2018-04-06 09:34] LABS: ALBUMIN 2.7 G/DL (3.4-5.0); ANION GAP 5 (8-16); BLOOD UREA NITROGEN 19 MG/DL (7-18); BUN/CREATININE RATIO 23.2 (5.4-32.0); CALCIUM 8.5 MG/DL (8.5-10.1); CHLORIDE 108 MMOL/L (99-107); CREATININE 0.82 MG/DL (0.60-1.10); GLUCOSE 126 MG/DL (70-104); POTASSIUM 3.3 MMOL/L (3.5-5.1); SODIUM 145 MMOL/L (135-145); TOTAL CARBON DIOXIDE 32.1 MMOL/L (24-32); eGFR > 90 ML/MIN
[2018-04-06] MEDS ORDERED: LORazepam 1 MG tablet PO PRN (09:35)
[2018-04-06] MEDS ORDERED: albuterol 2.5 MG/3 ML nebule ONE (16:22)
[2018-04-06] MEDS ORDERED: potassium Cl 20 mEq SR tablet PO PRN (19:20)
[2018-04-06] MEDS ORDERED: potassium Cl 40MEQ/NS 500ml 500 ML IV PRN ×2 (19:20)
[2018-04-06] MEDS: potassium Cl 20 mEq SR tablet PO PRN (20:17)
[2018-04-06] MEDS ORDERED: lithium carbonate 300mg SR tablet (LithoBID) PO SCH (21:00)
[2018-04-06] MEDS ORDERED: lithium carbonate 150mg capsule PO SCH ×2 (21:17→21:30)
[2018-04-07] MEDS: metroNIDAZOLE-Flagyl 500mg/NS 100 ML IV SCH ×3 (00:01→16:02)
[2018-04-07] MEDS: cefepime 1GM/NS ADD-VANTAGE 100 ML IV SCH ×3 (00:01→15:28)
[2018-04-07] MEDS: potassium Cl 20 mEq SR tablet PO PRN ×2 (00:32→11:39)
[2018-04-07] MEDS: dextrose 5%-water 1,000 ML IV SCH ×2 (02:06→13:22)
[2018-04-07 03:00] VITALS: BP 101/60
[2018-04-07 05:16] LABS: BASOPHILS % (AUTO) 0.1 % (0-1); EOSINOPHILS # (AUTO) 0.3 X10'3 (0-0.9); EOSINOPHILS % (AUTO) 2.9 % (0-6); HEMATOCRIT 38.1 % (42.0-52.0); HEMOGLOBIN 12.6 g/dl (14.0-17.9); LYMPHOCYTES # (AUTO) 1.1 X10'3 (1.1-4.8); LYMPHOCYTES % (AUTO) 10.5 % (21-51); MEAN CORPUSCULAR HEMOGLOBIN 30.8 PG (27.0-31.0); MEAN CORPUSCULAR VOLUME 93.4 FL (78-98); MEAN PLATELET VOLUME 9.7 FL (7.4-10.4); MONOCYTES # (AUTO) 0.5 X10'3 (0-0.9); MONOCYTES % (AUTO) 4.6 % (2-12); NEUTROPHILS # (AUTO) 8.4 X10'3 (1.8-7.7); NEUTROPHILS % (AUTO) 81.9 % (42-75); PLATELET COUNT 185 X10'3 (140-440); RED BLOOD COUNT 4.07 X10'6 (4.70-6.10); RED CELL DISTRIBUTION WIDTH 13.8 % (11.5-14.5); WHITE BLOOD COUNT 10.2 X10'3 (4.5-11.0)
[2018-04-07 05:40] LABS: ALANINE AMINOTRANSFERASE 28 U/L (12-78); ALBUMIN 2.4 G/DL (3.4-5.0); ALBUMIN/GLOBULIN RATIO 0.7 (1.1-1.5); ALKALINE PHOSPHATASE 72 IU/L (46-116); ANION GAP 4 (8-16); ASPARTATE AMINO TRANSFERASE 17 U/L (10-37); BILIRUBIN,TOTAL 0.2 MG/DL (0.1-1.0); BLOOD UREA NITROGEN 17 MG/DL (7-18); CALCIUM 8.3 MG/DL (8.5-10.1); CHLORIDE 105 MMOL/L (99-107); CREATININE 0.74 MG/DL (0.60-1.10); GLUCOSE 129 MG/DL (70-104); SODIUM 140 MMOL/L (135-145); TOTAL CARBON DIOXIDE 30.6 MMOL/L (24-32); TOTAL PROTEIN 5.8 G/DL (6.4-8.2); eGFR > 90 ML/MIN
[2018-04-07 05:44] LABS: POTASSIUM 3.4 MMOL/L (3.5-5.1)
[2018-04-07 05:53] LABS: PLATELET ESTIMATE NORMAL; TOTAL CELLS COUNTED 100
[2018-04-07 06:00] VITALS: BP 118/82
[2018-04-07 06:15] LABS: CLARITY,URINE CLEAR (Clear); COLOR,URINE YELLOW (Yellow); GLUCOSE, URINE NEGATIVE (Neg); KETONES,URINE NEGATIVE (Neg); LEUKOCYTE ESTERASE ,URINE NEGATIVE (Neg); OCCULT BLOOD,URINE SMALL (Neg); PROTEIN,URINE 30 mg/dl (Neg); UROBILINOGEN,URINE 0.2 E.U/dL (0.2-1.0)
[2018-04-07 06:24] LABS: NITRITES, URINE NEGATIVE (Neg); UA COLLECTION TYPE FOLEY CATH
[2018-04-07 06:26] LABS: BACTERIA,URINE FEW /HPF (Neg); HYALINE CASTS 0-3 /LPF (NEGATIVE); MUCUS STRANDS MANY /LPF (Neg); SQUAMOUS EPITHELIAL CELL,UR NONE SEEN /LPF (FEW)
[2018-04-07 06:30] LABS: AMORPHOUS URATES 1+
[2018-04-07] MEDS: docusate sod 100mg capsule PO SCH (08:00)
[2018-04-07] MEDS ORDERED: LORazepam 1 MG tablet PO PRN (08:05)
[2018-04-07 08:09] LABS: ALBUMIN 2.4 G/DL (3.4-5.0); ANION GAP 4 (8-16); BLOOD UREA NITROGEN 15 MG/DL (7-18); BUN/CREATININE RATIO 23.8 (5.4-32.0); CALCIUM 8.2 MG/DL (8.5-10.1); CHLORIDE 104 MMOL/L (99-107); CREATININE 0.63 MG/DL (0.60-1.10); GLUCOSE 126 MG/DL (70-104); POTASSIUM 3.2 MMOL/L (3.5-5.1); PREALBUMIN 9.5 MG/DL (19-36); SODIUM 139 MMOL/L (135-145); TOTAL CARBON DIOXIDE 31.1 MMOL/L (24-32); eGFR > 90 ML/MIN
[2018-04-07] MEDS ORDERED: LORazepam 1 MG tablet PO ONE (08:45)
[2018-04-07] MEDS: heparin, porcine 5000 units/ml vial SQ SCH ×2 (08:48→22:02)
[2018-04-07] MEDS: lactobacillus rhamnosus 10,000 MMU CELLS/CAPSULE PO SCH (08:54)
[2018-04-07 11:00] VITALS: BP 106/68
[2018-04-07] MEDS ORDERED: mag hydrox/Alum hydrox/simeth 30ml oral suspension JT PRN (12:13)
[2018-04-07] MEDS ORDERED: acetaminophen 325mg/10.15ml oral unit dose solution PO PRN ×2 (12:15→12:20)
[2018-04-07] MEDS ORDERED: acetaminophen 325mg/10.15ml oral unit dose solution JT PRN (12:20)
[2018-04-07] MEDS ORDERED: diphenhydrAMINE 25 MG/10 ML UD oral solution JT PRN (12:20)
[2018-04-07] MEDS ORDERED: magnesium hydroxide 30ml (MOM) UD suspension JT PRN (12:33)
[2018-04-07] MEDS ORDERED: potassium Cl oral solution 20 MEQ/15 ML JT PRN (12:35)
[2018-04-07] MEDS ORDERED: temazepam 15mg capsule JT PRN (12:37)
[2018-04-07] MEDS: LORazepam 1 MG tablet JT SCH ×2 (13:19→20:00)
[2018-04-07 15:00] VITALS: BP 111/67
[2018-04-07] MEDS: potassium Cl oral solution 20 MEQ/15 ML JT PRN (16:09)
[2018-04-07 19:00] VITALS: BP 109/69
[2018-04-07] MEDS: docusate sodium 100mg/10ml UD cup JT SCH (20:00)
[2018-04-07] MEDS: lithium carbonate 150mg capsule JT SCH (22:03)
[2018-04-07] MEDS: lactobacillus rhamnosus 10,000 MMU CELLS/CAPSULE JT SCH (22:03)
[2018-04-07 23:00] VITALS: BP 110/73
[2018-04-08] MEDS: cefepime 1GM/NS ADD-VANTAGE 100 ML IV SCH ×3 (00:32→16:33)
[2018-04-08] MEDS: metroNIDAZOLE-Flagyl 500mg/NS 100 ML IV SCH ×4 (01:28→23:48)
[2018-04-08] MEDS: potassium Cl oral solution 20 MEQ/15 ML JT PRN ×2 (01:28→05:37)
[2018-04-08] MEDS: LORazepam 1 MG tablet JT SCH ×4 (01:28→21:03)
[2018-04-08 03:00] VITALS: BP 112/65
[2018-04-08 05:24] LABS: BASOPHILS % (AUTO) 0.3 % (0-1); EOSINOPHILS # (AUTO) 0.4 X10'3 (0-0.9); EOSINOPHILS % (AUTO) 3.9 % (0-6); HEMATOCRIT 40.3 % (42.0-52.0); HEMOGLOBIN 13.1 g/dl (14.0-17.9); LYMPHOCYTES # (AUTO) 1.1 X10'3 (1.1-4.8); LYMPHOCYTES % (AUTO) 11.8 % (21-51); MEAN CORPUSCULAR HEMOGLOBIN 30.5 PG (27.0-31.0); MEAN CORPUSCULAR HGB CONC 32.6 % (33.0-36.5); MEAN CORPUSCULAR VOLUME 93.7 FL (78-98); MEAN PLATELET VOLUME 9.4 FL (7.4-10.4); MONOCYTES # (AUTO) 0.5 X10'3 (0-0.9); MONOCYTES % (AUTO) 5.7 % (2-12); NEUTROPHILS # (AUTO) 7.4 X10'3 (1.8-7.7); NEUTROPHILS % (AUTO) 78.3 % (42-75); PLATELET COUNT 225 X10'3 (140-440); RED CELL DISTRIBUTION WIDTH 14.4 % (11.5-14.5); WHITE BLOOD COUNT 9.4 X10'3 (4.5-11.0)
[2018-04-08] MEDS: dextrose 5%-water 1,000 ML IV SCH ×2 (05:42→10:05)
[2018-04-08 05:54] LABS: ALANINE AMINOTRANSFERASE 26 U/L (12-78); ALBUMIN 2.4 G/DL (3.4-5.0); ALBUMIN/GLOBULIN RATIO 0.7 (1.1-1.5); ALKALINE PHOSPHATASE 79 IU/L (46-116); ANION GAP 3 (8-16); ASPARTATE AMINO TRANSFERASE 16 U/L (10-37); BILIRUBIN,TOTAL 0.3 MG/DL (0.1-1.0); BLOOD UREA NITROGEN 12 MG/DL (7-18); BUN/CREATININE RATIO 14.6 (5.4-32.0); CALCIUM 8.2 MG/DL (8.5-10.1); CHLORIDE 106 MMOL/L (99-107); CREATININE 0.82 MG/DL (0.60-1.10); GLUCOSE 123 MG/DL (70-104); POTASSIUM 3.3 MMOL/L (3.5-5.1); SODIUM 142 MMOL/L (135-145); TOTAL CARBON DIOXIDE 32.9 MMOL/L (24-32); TOTAL PROTEIN 5.9 G/DL (6.4-8.2); eGFR > 90 ML/MIN
[2018-04-08 06:00] VITALS: BP 111/78
[2018-04-08] MEDS: lithium carbonate 150mg capsule JT SCH ×2 (10:28→21:04)
[2018-04-08] MEDS: lactobacillus rhamnosus 10,000 MMU CELLS/CAPSULE JT SCH ×2 (10:31→21:04)
[2018-04-08] MEDS: docusate sodium 100mg/10ml UD cup JT SCH ×2 (10:32→21:04)
[2018-04-08] MEDS: voritoxetine HBr tablet 5 MG TABLET JT SCH (10:39)
[2018-04-08] MEDS: heparin, porcine 5000 units/ml vial SQ SCH ×2 (10:47→21:03)
[2018-04-08 11:00] VITALS: BP 113/62
[2018-04-08] MEDS ORDERED: voritoxetine HBr tablet 5 MG TABLET JT SCH (12:12)
[2018-04-08 16:24] VITALS: BP 112/71
[2018-04-08 19:00] VITALS: BP 113/70
[2018-04-08 23:00] VITALS: BP 112/65
[2018-04-09] MEDS: cefepime 1GM/NS ADD-VANTAGE 100 ML IV SCH ×3 (01:38→15:14)
[2018-04-09] MEDS: LORazepam 1 MG tablet JT SCH ×4 (02:15→20:59)
[2018-04-09 03:00] VITALS: BP 114/72
[2018-04-09 05:26] LABS: BASOPHILS % (AUTO) 0.2 % (0-1); EOSINOPHILS # (AUTO) 0.4 X10'3 (0-0.9); EOSINOPHILS % (AUTO) 3.5 % (0-6); HEMATOCRIT 41.3 % (42.0-52.0); HEMOGLOBIN 13.7 g/dl (14.0-17.9); LYMPHOCYTES # (AUTO) 1.2 X10'3 (1.1-4.8); MEAN CORPUSCULAR HGB CONC 33.3 % (33.0-36.5); MEAN CORPUSCULAR VOLUME 93.3 FL (78-98); MEAN PLATELET VOLUME 9.2 FL (7.4-10.4); MONOCYTES # (AUTO) 0.6 X10'3 (0-0.9); MONOCYTES % (AUTO) 5.8 % (2-12); NEUTROPHILS # (AUTO) 8.3 X10'3 (1.8-7.7); NEUTROPHILS % (AUTO) 79.5 % (42-75); PLATELET COUNT 243 X10'3 (140-440); RED BLOOD COUNT 4.43 X10'6 (4.70-6.10); RED CELL DISTRIBUTION WIDTH 14.3 % (11.5-14.5); WHITE BLOOD COUNT 10.5 X10'3 (4.5-11.0)
[2018-04-09 06:04] LABS: ALANINE AMINOTRANSFERASE 32 U/L (12-78); ALBUMIN 2.4 G/DL (3.4-5.0); ALBUMIN/GLOBULIN RATIO 0.7 (1.1-1.5); ALKALINE PHOSPHATASE 77 IU/L (46-116); ANION GAP 4 (8-16); ASPARTATE AMINO TRANSFERASE 25 U/L (10-37); BILIRUBIN,TOTAL 0.2 MG/DL (0.1-1.0); BLOOD UREA NITROGEN 11 MG/DL (7-18); BUN/CREATININE RATIO 15.3 (5.4-32.0); CALCIUM 8.2 MG/DL (8.5-10.1); CHLORIDE 103 MMOL/L (99-107); CREATININE 0.72 MG/DL (0.60-1.10); GLUCOSE 123 MG/DL (70-104); POTASSIUM 3.7 MMOL/L (3.5-5.1); SODIUM 141 MMOL/L (135-145); TOTAL CARBON DIOXIDE 34.4 MMOL/L (24-32); TOTAL PROTEIN 5.9 G/DL (6.4-8.2); eGFR > 90 ML/MIN
[2018-04-09 06:59] VITALS: BP 117/62
[2018-04-09] MEDS: docusate sodium 100mg/10ml UD cup JT SCH ×2 (07:50→20:58)
[2018-04-09] MEDS: lithium carbonate 150mg capsule JT SCH ×2 (07:50→20:59)
[2018-04-09] MEDS: lactobacillus rhamnosus 10,000 MMU CELLS/CAPSULE JT SCH ×2 (07:50→20:58)
[2018-04-09] MEDS: heparin, porcine 5000 units/ml vial SQ SCH ×2 (07:51→21:00)
[2018-04-09] MEDS: dextrose 5%-water 1,000 ML IV SCH ×2 (07:59→20:45)
[2018-04-09] MEDS: metroNIDAZOLE-Flagyl 500mg/NS 100 ML IV SCH ×3 (07:59→23:53)
[2018-04-09] MEDS: voritoxetine HBr tablet 5 MG TABLET JT SCH (08:56)
[2018-04-09 11:00] VITALS: BP 105/89
[2018-04-09 15:00] VITALS: BP 106/70
[2018-04-09 19:00] VITALS: BP 111/67
[2018-04-09 23:00] VITALS: BP 113/65
[2018-04-10] VITALS (7 sets, daily range): BP systolic 106–116; BP diastolic 65–73
[2018-04-10] MEDS: cefepime 1GM/NS ADD-VANTAGE 100 ML IV SCH (01:15)
[2018-04-10] MEDS: LORazepam 1 MG tablet JT SCH ×4 (02:31→20:02)
[2018-04-10 06:15] LABS: BASOPHILS % (AUTO) 0.1 % (0-1); EOSINOPHILS # (AUTO) 0.4 X10'3 (0-0.9); EOSINOPHILS % (AUTO) 3.9 % (0-6); HEMATOCRIT 42.1 % (42.0-52.0); LYMPHOCYTES # (AUTO) 1.4 X10'3 (1.1-4.8); LYMPHOCYTES % (AUTO) 14.8 % (21-51); MEAN CORPUSCULAR HEMOGLOBIN 30.8 PG (27.0-31.0); MEAN CORPUSCULAR HGB CONC 33.2 % (33.0-36.5); MEAN CORPUSCULAR VOLUME 92.7 FL (78-98); MONOCYTES # (AUTO) 0.8 X10'3 (0-0.9); MONOCYTES % (AUTO) 8.3 % (2-12); NEUTROPHILS # (AUTO) 6.7 X10'3 (1.8-7.7); NEUTROPHILS % (AUTO) 72.9 % (42-75); PLATELET COUNT 281 X10'3 (140-440); RED BLOOD COUNT 4.55 X10'6 (4.70-6.10); RED CELL DISTRIBUTION WIDTH 14.1 % (11.5-14.5); WHITE BLOOD COUNT 9.2 X10'3 (4.5-11.0)
[2018-04-10 06:34] LABS: ALANINE AMINOTRANSFERASE 55 U/L (12-78); ALBUMIN 2.5 G/DL (3.4-5.0); ALBUMIN/GLOBULIN RATIO 0.7 (1.1-1.5); ALKALINE PHOSPHATASE 81 IU/L (46-116); ANION GAP 4 (8-16); ASPARTATE AMINO TRANSFERASE 56 U/L (10-37); BILIRUBIN,TOTAL 0.3 MG/DL (0.1-1.0); BLOOD UREA NITROGEN 12 MG/DL (7-18); BUN/CREATININE RATIO 17.9 (5.4-32.0); CALCIUM 8.7 MG/DL (8.5-10.1); CHLORIDE 104 MMOL/L (99-107); CREATININE 0.67 MG/DL (0.60-1.10); GLUCOSE 130 MG/DL (70-104); POTASSIUM 3.9 MMOL/L (3.5-5.1); PREALBUMIN 14.9 MG/DL (19-36); SODIUM 141 MMOL/L (135-145); TOTAL CARBON DIOXIDE 32.6 MMOL/L (24-32); eGFR > 90 ML/MIN
[2018-04-10] MEDS: docusate sodium 100mg/10ml UD cup JT SCH ×2 (08:07→20:06)
[2018-04-10] MEDS: heparin, porcine 5000 units/ml vial SQ SCH ×2 (08:08→20:06)
[2018-04-10] MEDS: voritoxetine HBr tablet 5 MG TABLET JT SCH (08:09)
[2018-04-10] MEDS: lithium carbonate 150mg capsule JT SCH ×2 (08:09→20:03)
[2018-04-10] MEDS: lactobacillus rhamnosus 10,000 MMU CELLS/CAPSULE JT SCH ×2 (08:09→20:06)
[2018-04-10] MEDS: levoFLOXACIN-Levaquin 500mg/D5 100 ML IV SCH (08:10)
[2018-04-10] MEDS: metroNIDAZOLE-Flagyl 500mg/NS 100 ML IV SCH ×2 (10:02→15:22)
[2018-04-11] MEDS: metroNIDAZOLE-Flagyl 500mg/NS 100 ML IV SCH ×3 (00:04→16:39)
[2018-04-11] MEDS: LORazepam 1 MG tablet JT SCH ×4 (02:00→20:13)
[2018-04-11 03:00] VITALS: BP 112/71
[2018-04-11 06:49] VITALS: BP 104/64
[2018-04-11] MEDS: levoFLOXACIN-Levaquin 500mg/D5 100 ML IV SCH (07:48)
[2018-04-11] MEDS: lithium carbonate 150mg capsule JT SCH ×2 (07:51→20:13)
[2018-04-11] MEDS: lactobacillus rhamnosus 10,000 MMU CELLS/CAPSULE JT SCH ×2 (07:51→20:13)
[2018-04-11] MEDS: docusate sodium 100mg/10ml UD cup JT SCH ×2 (07:51→20:13)
[2018-04-11] MEDS: heparin, porcine 5000 units/ml vial SQ SCH ×2 (07:51→20:14)
[2018-04-11] MEDS: voritoxetine HBr tablet 5 MG TABLET JT SCH (07:51)
[2018-04-11 10:13] LABS: BASOPHILS % (AUTO) 0.3 % (0-1); EOSINOPHILS # (AUTO) 0.5 X10'3 (0-0.9); EOSINOPHILS % (AUTO) 4.7 % (0-6); HEMOGLOBIN 13.9 g/dl (14.0-17.9); LYMPHOCYTES # (AUTO) 1.2 X10'3 (1.1-4.8); LYMPHOCYTES % (AUTO) 12.4 % (21-51); MEAN CORPUSCULAR HEMOGLOBIN 30.6 PG (27.0-31.0); MEAN CORPUSCULAR HGB CONC 33.2 % (33.0-36.5); MEAN CORPUSCULAR VOLUME 92.2 FL (78-98); MEAN PLATELET VOLUME 8.6 FL (7.4-10.4); MONOCYTES % (AUTO) 10.4 % (2-12); NEUTROPHILS # (AUTO) 6.9 X10'3 (1.8-7.7); NEUTROPHILS % (AUTO) 72.2 % (42-75); PLATELET COUNT 323 X10'3 (140-440); RED BLOOD COUNT 4.55 X10'6 (4.70-6.10); RED CELL DISTRIBUTION WIDTH 13.9 % (11.5-14.5); WHITE BLOOD COUNT 9.6 X10'3 (4.5-11.0)
[2018-04-11 10:37] LABS: ALBUMIN 2.6 G/DL (3.4-5.0); ANION GAP 4 (8-16); BLOOD UREA NITROGEN 15 MG/DL (7-18); BUN/CREATININE RATIO 23.4 (5.4-32.0); CALCIUM 8.7 MG/DL (8.5-10.1); CHLORIDE 100 MMOL/L (99-107); CREATININE 0.64 MG/DL (0.60-1.10); GLUCOSE 117 MG/DL (70-104); POTASSIUM 4.2 MMOL/L (3.5-5.1); SODIUM 138 MMOL/L (135-145); TOTAL CARBON DIOXIDE 34.1 MMOL/L (24-32); eGFR > 90 ML/MIN
[2018-04-11 15:00] VITALS: BP 103/70
[2018-04-11 18:00] VITALS: BP 96/41
[2018-04-11 22:00] VITALS: BP 100/53
[2018-04-12] MEDS: metroNIDAZOLE-Flagyl 500mg/NS 100 ML IV SCH ×4 (00:04→23:45)
[2018-04-12] MEDS: LORazepam 1 MG tablet JT SCH ×4 (01:44→20:29)
[2018-04-12 02:00] VITALS: BP 107/56
[2018-04-12 06:00] VITALS: BP 98/62
[2018-04-12] MEDS: heparin, porcine 5000 units/ml vial SQ SCH ×2 (08:42→20:30)
[2018-04-12] MEDS: lactobacillus rhamnosus 10,000 MMU CELLS/CAPSULE JT SCH ×2 (08:42→20:29)
[2018-04-12] MEDS: lithium carbonate 150mg capsule JT SCH ×2 (08:43→20:29)
[2018-04-12] MEDS: voritoxetine HBr tablet 5 MG TABLET JT SCH (08:43)
[2018-04-12] MEDS: docusate sodium 100mg/10ml UD cup JT SCH ×2 (08:44→20:29)
[2018-04-12] MEDS: levoFLOXACIN-Levaquin 500mg/D5 100 ML IV SCH (08:44)
[2018-04-12 11:00] VITALS: BP 110/43
[2018-04-12] MEDS: acetaminophen 325mg/10.15ml oral unit dose solution JT PRN (16:17)
[2018-04-12 18:00] VITALS: BP 109/62
[2018-04-12 22:00] VITALS: BP 103/58
[2018-04-13 02:00] VITALS: BP 109/62
[2018-04-13] MEDS: LORazepam 1 MG tablet JT SCH ×4 (02:07→20:50)
[2018-04-13 07:00] VITALS: BP 106/58
[2018-04-13] MEDS: heparin, porcine 5000 units/ml vial SQ SCH ×2 (08:00→20:51)
[2018-04-13] MEDS: lactobacillus rhamnosus 10,000 MMU CELLS/CAPSULE JT SCH ×2 (08:54→20:51)
[2018-04-13] MEDS: metroNIDAZOLE-Flagyl 500mg/NS 100 ML IV SCH ×2 (08:55→15:30)
[2018-04-13] MEDS: levoFLOXACIN-Levaquin 500mg/D5 100 ML IV SCH (08:55)
[2018-04-13] MEDS: voritoxetine HBr tablet 5 MG TABLET JT SCH (08:57)
[2018-04-13] MEDS: docusate sodium 100mg/10ml UD cup JT SCH ×2 (09:42→20:51)
[2018-04-13 11:00] VITALS: BP 99/69
[2018-04-13] MEDS: lithium carbonate 150mg capsule JT SCH ×2 (11:59→20:51)
[2018-04-13 15:00] VITALS: BP 105/87
[2018-04-13 19:00] VITALS: BP 94/67
[2018-04-13 23:00] VITALS: BP 105/53
[2018-04-14] MEDS: metroNIDAZOLE-Flagyl 500mg/NS 100 ML IV SCH ×3 (00:56→16:35)
[2018-04-14] MEDS: LORazepam 1 MG tablet JT SCH ×4 (02:28→20:30)
[2018-04-14 03:00] VITALS: BP 102/58
[2018-04-14 06:00] VITALS: BP 110/57
[2018-04-14 06:14] LABS: BASOPHILS # (AUTO) 0.3 X10'3 (0-0.2); EOSINOPHILS # (AUTO) 0.6 X10'3 (0-0.9); EOSINOPHILS % (AUTO) 4.7 % (0-6); HEMATOCRIT 43.1 % (42.0-52.0); HEMOGLOBIN 14.6 g/dl (14.0-17.9); LYMPHOCYTES # (AUTO) 1.6 X10'3 (1.1-4.8); LYMPHOCYTES % (AUTO) 12.2 % (21-51); MEAN CORPUSCULAR HEMOGLOBIN 30.8 PG (27.0-31.0); MEAN CORPUSCULAR HGB CONC 33.8 % (33.0-36.5); MEAN PLATELET VOLUME 9.1 FL (7.4-10.4); MONOCYTES # (AUTO) 0.5 X10'3 (0-0.9); MONOCYTES % (AUTO) 3.8 % (2-12); NEUTROPHILS # (AUTO) 9.9 X10'3 (1.8-7.7); NEUTROPHILS % (AUTO) 77.3 % (42-75); PLATELET COUNT 348 X10'3 (140-440); RED BLOOD COUNT 4.74 X10'6 (4.70-6.10); RED CELL DISTRIBUTION WIDTH 14.2 % (11.5-14.5); WHITE BLOOD COUNT 12.8 X10'3 (4.5-11.0)
[2018-04-14 06:44] LABS: ALANINE AMINOTRANSFERASE 62 U/L (12-78); ALBUMIN 2.8 G/DL (3.4-5.0); ALBUMIN/GLOBULIN RATIO 0.8 (1.1-1.5); ALKALINE PHOSPHATASE 86 IU/L (46-116); ANION GAP 5 (8-16); ASPARTATE AMINO TRANSFERASE 26 U/L (10-37); BILIRUBIN,TOTAL 0.3 MG/DL (0.1-1.0); BLOOD UREA NITROGEN 21 MG/DL (7-18); BUN/CREATININE RATIO 26.9 (5.4-32.0); CALCIUM 8.9 MG/DL (8.5-10.1); CHLORIDE 100 MMOL/L (99-107); CREATININE 0.78 MG/DL (0.60-1.10); GLUCOSE 144 MG/DL (70-104); POTASSIUM 4.3 MMOL/L (3.5-5.1); SODIUM 138 MMOL/L (135-145); TOTAL CARBON DIOXIDE 32.8 MMOL/L (24-32); TOTAL PROTEIN 6.5 G/DL (6.4-8.2); eGFR > 90 ML/MIN
[2018-04-14] MEDS: docusate sodium 100mg/10ml UD cup JT SCH ×2 (07:23→20:30)
[2018-04-14] MEDS: lithium carbonate 150mg capsule JT SCH ×2 (07:23→20:31)
[2018-04-14] MEDS: lactobacillus rhamnosus 10,000 MMU CELLS/CAPSULE JT SCH ×2 (07:23→20:30)
[2018-04-14] MEDS: heparin, porcine 5000 units/ml vial SQ SCH ×2 (07:24→20:31)
[2018-04-14] MEDS: levoFLOXACIN-Levaquin 500mg/D5 100 ML IV SCH (07:24)
[2018-04-14] MEDS: voritoxetine HBr tablet 5 MG TABLET JT SCH (07:59)
[2018-04-14 11:00] VITALS: BP 111/67
[2018-04-14 15:00] VITALS: BP 116/63
[2018-04-14 19:00] VITALS: BP 120/65
[2018-04-14 23:00] VITALS: BP 102/56
[2018-04-15] MEDS: metroNIDAZOLE-Flagyl 500mg/NS 100 ML IV SCH ×3 (00:33→15:30)
[2018-04-15] MEDS: LORazepam 1 MG tablet JT SCH ×4 (02:33→20:22)
[2018-04-15 03:00] VITALS: BP 108/67
[2018-04-15 06:00] VITALS: BP 115/73
[2018-04-15 07:00] VITALS: BP 115/73
[2018-04-15 07:21] LABS: BASOPHILS % (AUTO) 0.1 % (0-1); EOSINOPHILS # (AUTO) 0.5 X10'3 (0-0.9); EOSINOPHILS % (AUTO) 5.2 % (0-6); HEMATOCRIT 43.7 % (42.0-52.0); HEMOGLOBIN 14.5 g/dl (14.0-17.9); LYMPHOCYTES # (AUTO) 1.3 X10'3 (1.1-4.8); LYMPHOCYTES % (AUTO) 13.3 % (21-51); MEAN CORPUSCULAR HEMOGLOBIN 30.8 PG (27.0-31.0); MEAN CORPUSCULAR HGB CONC 33.1 % (33.0-36.5); MEAN CORPUSCULAR VOLUME 93.1 FL (78-98); MEAN PLATELET VOLUME 7.8 FL (7.4-10.4); MONOCYTES # (AUTO) 0.6 X10'3 (0-0.9); MONOCYTES % (AUTO) 5.9 % (2-12); NEUTROPHILS # (AUTO) 7.7 X10'3 (1.8-7.7); NEUTROPHILS % (AUTO) 75.5 % (42-75); PLATELET COUNT 448 X10'3 (140-440); RED CELL DISTRIBUTION WIDTH 14.4 % (11.5-14.5); WHITE BLOOD COUNT 10.1 X10'3 (4.5-11.0)
[2018-04-15 07:37] LABS: ALANINE AMINOTRANSFERASE 52 U/L (12-78); ALBUMIN 2.8 G/DL (3.4-5.0); ALBUMIN/GLOBULIN RATIO 0.8 (1.1-1.5); ALKALINE PHOSPHATASE 87 IU/L (46-116); ANION GAP 4 (8-16); ASPARTATE AMINO TRANSFERASE 18 U/L (10-37); BILIRUBIN,TOTAL 0.3 MG/DL (0.1-1.0); BLOOD UREA NITROGEN 21 MG/DL (7-18); BUN/CREATININE RATIO 25.3 (5.4-32.0); CALCIUM 9.2 MG/DL (8.5-10.1); CHLORIDE 102 MMOL/L (99-107); CREATININE 0.83 MG/DL (0.60-1.10); GLUCOSE 129 MG/DL (70-104); POTASSIUM 4.1 MMOL/L (3.5-5.1); SODIUM 142 MMOL/L (135-145); TOTAL CARBON DIOXIDE 36.3 MMOL/L (24-32); TOTAL PROTEIN 6.4 G/DL (6.4-8.2); eGFR > 90 ML/MIN
[2018-04-15] MEDS: docusate sodium 100mg/10ml UD cup JT SCH ×2 (07:54→20:22)
[2018-04-15] MEDS: heparin, porcine 5000 units/ml vial SQ SCH ×2 (07:54→20:23)
[2018-04-15] MEDS: voritoxetine HBr tablet 5 MG TABLET JT SCH (07:54)
[2018-04-15] MEDS: levoFLOXACIN-Levaquin 500mg/D5 100 ML IV SCH (07:55)
[2018-04-15] MEDS: lactobacillus rhamnosus 10,000 MMU CELLS/CAPSULE JT SCH ×2 (07:55→20:22)
[2018-04-15] MEDS: lithium carbonate 150mg capsule JT SCH ×2 (07:55→20:22)
[2018-04-15 15:00] VITALS: BP 103/65
[2018-04-15 18:00] VITALS: BP 93/57
[2018-04-15 22:00] VITALS: BP 108/57
[2018-04-16] MEDS: metroNIDAZOLE-Flagyl 500mg/NS 100 ML IV SCH ×4 (00:33→23:57)
[2018-04-16] MEDS: LORazepam 1 MG tablet JT SCH ×4 (02:23→22:08)
[2018-04-16 07:08] LABS: ANION GAP 3 (8-16); BLOOD UREA NITROGEN 22 MG/DL (7-18); BUN/CREATININE RATIO 28.2 (5.4-32.0); CALCIUM 9.2 MG/DL (8.5-10.1); CHLORIDE 102 MMOL/L (99-107); CREATININE 0.78 MG/DL (0.60-1.10); GLUCOSE 114 MG/DL (70-104); POTASSIUM 4.3 MMOL/L (3.5-5.1); SODIUM 141 MMOL/L (135-145); TOTAL CARBON DIOXIDE 36.1 MMOL/L (24-32); eGFR > 90 ML/MIN
[2018-04-16 07:15] VITALS: BP 107/51
[2018-04-16] MEDS: lithium carbonate 150mg capsule JT SCH ×2 (07:21→22:08)
[2018-04-16] MEDS: voritoxetine HBr tablet 5 MG TABLET JT SCH (07:21)
[2018-04-16] MEDS: lactobacillus rhamnosus 10,000 MMU CELLS/CAPSULE JT SCH ×2 (07:21→22:08)
[2018-04-16] MEDS: heparin, porcine 5000 units/ml vial SQ SCH ×2 (07:22→22:10)
[2018-04-16] MEDS: levoFLOXACIN-Levaquin 500mg/D5 100 ML IV SCH (07:22)
[2018-04-16] MEDS: docusate sodium 100mg/10ml UD cup JT SCH ×2 (08:14→22:08)
[2018-04-16 11:00] VITALS: BP_SYST 100; BP_DIAS 60; BP_DIAS 64
[2018-04-16 15:00] VITALS: BP 91/68
[2018-04-16 18:00] VITALS: BP_SYST 106; BP_SYST 136; BP_DIAS 70; BP_DIAS 86
[2018-04-16 22:00] VITALS: BP 108/49
[2018-04-16] MEDS ORDERED: diatr meglu/diatrizoate 30ml oral sol.-(3 dose) bottle NG ONE (22:00)
[2018-04-16] MEDS: acetaminophen 325mg/10.15ml oral unit dose solution JT PRN (22:09)
[2018-04-17] VITALS (13 sets, daily range): BP systolic 95–154; BP diastolic 58–87
[2018-04-17] MEDS: LORazepam 1 MG tablet JT SCH ×4 (03:14→20:35)
[2018-04-17 05:47] LABS: ALBUMIN 2.8 G/DL (3.4-5.0); ANION GAP 3 (8-16); BLOOD UREA NITROGEN 22 MG/DL (7-18); BUN/CREATININE RATIO 26.8 (5.4-32.0); CALCIUM 8.7 MG/DL (8.5-10.1); CHLORIDE 101 MMOL/L (99-107); CREATININE 0.82 MG/DL (0.60-1.10); GLUCOSE 103 MG/DL (70-104); POTASSIUM 4.1 MMOL/L (3.5-5.1); PREALBUMIN 25.8 MG/DL (19-36); SODIUM 139 MMOL/L (135-145); TOTAL CARBON DIOXIDE 35.1 MMOL/L (24-32); eGFR > 90 ML/MIN
[2018-04-17] MEDS: metroNIDAZOLE-Flagyl 500mg/NS 100 ML IV SCH ×2 (07:53→16:00)
[2018-04-17] MEDS: heparin, porcine 5000 units/ml vial SQ SCH (08:00)
[2018-04-17] MEDS: lactobacillus rhamnosus 10,000 MMU CELLS/CAPSULE JT SCH ×2 (08:00→20:35)
[2018-04-17] MEDS: docusate sodium 100mg/10ml UD cup JT SCH ×2 (08:00→20:00)
[2018-04-17] MEDS: voritoxetine HBr tablet 5 MG TABLET JT SCH (08:00)
[2018-04-17] MEDS: lithium carbonate 150mg capsule JT SCH ×2 (08:00→20:36)
[2018-04-17] MEDS: levoFLOXACIN-Levaquin 500mg/D5 100 ML IV SCH (09:03)
[2018-04-17] MEDS ORDERED: LIDOcaine 1%/PF 5ML 10 MG/ML VIAL SQ ONE (11:00)
[2018-04-17] MEDS ORDERED: glucagon, human recombinant 1mg kit IM ONE (11:00)
[2018-04-17] MEDS ORDERED: midazolam 2 mg/2 ml injection IV PRN (11:00)
[2018-04-17] MEDS ORDERED: fentaNYL/PF 50MCG/1 ML 2ML syringe IV PRN (11:00)
[2018-04-17] MEDS ORDERED: glucagon, human recombinant 1mg kit ONE (11:13)
[2018-04-17] MEDS ORDERED: midazolam 2 mg/2 ml injection ONE (11:14)
[2018-04-17] MEDS ORDERED: fentaNYL/PF 50MCG/1 ML 2ML syringe ONE ×2 (11:14→15:24)
[2018-04-17] MEDS ORDERED: LIDOcaine 1%/PF 5ML 10 MG/ML VIAL ONE (11:23)
[2018-04-17] MEDS ORDERED: iohexol 300 MG/1 ML 50ml polymer ONE (11:23)
[2018-04-17] MEDS ORDERED: BUPIVAcaine/PF 2.5mg/ml (0.25%) 10ml vial ONE (13:48)
[2018-04-17] MEDS ORDERED: glycopyrrolate 0.2mg/ml inj ONE (15:21)
[2018-04-17] MEDS ORDERED: neostigmine methylsulfate 1 MG/ML 10ml vial ONE (15:21)
[2018-04-17] MEDS ORDERED: sevoflurane 250ml liquid IH ONE (15:21)
[2018-04-17] MEDS ORDERED: ringers solution, lacted 1,000 ML IV SCH (15:57)
[2018-04-17] MEDS ORDERED: morphine 4 MG/ML inj SYRINge IV PRN ×2 (16:00)
[2018-04-17] MEDS ORDERED: meperidine/PF 25mg/ml syringe IV PRN ×2 (16:00)
[2018-04-17] MEDS ORDERED: proCHLORperazine 10 MG/2 ml inj IV PRN (16:00)
[2018-04-17] MEDS ORDERED: ondansetron/PF 4mg/2ml inj IV PRN (16:00)
[2018-04-17] MEDS ORDERED: rocuronium 10mg/ml inj IV ONE (16:18)
[2018-04-17] MEDS ORDERED: propofol inj 20 ML IV ONE (16:18)
[2018-04-17] MEDS: meperidine/PF 25mg/ml syringe IV PRN ×2 (16:46→17:31)
[2018-04-18] MEDS: metroNIDAZOLE-Flagyl 500mg/NS 100 ML IV SCH ×2 (00:40→08:02)
[2018-04-18] MEDS: LORazepam 1 MG tablet JT SCH ×4 (01:31→20:16)
[2018-04-18 03:00] VITALS: BP 105/54
[2018-04-18 05:56] LABS: ANION GAP 8 (8-16); BLOOD UREA NITROGEN 24 MG/DL (7-18); BUN/CREATININE RATIO 29.3 (5.4-32.0); CALCIUM 9.1 MG/DL (8.5-10.1); CHLORIDE 99 MMOL/L (99-107); CREATININE 0.82 MG/DL (0.60-1.10); GLUCOSE 104 MG/DL (70-104); SODIUM 137 MMOL/L (135-145); TOTAL CARBON DIOXIDE 30.2 MMOL/L (24-32); eGFR > 90 ML/MIN
[2018-04-18 06:00] VITALS: BP 100/59
[2018-04-18 06:00] LABS: POTASSIUM 4.7 MMOL/L (3.5-5.1)
[2018-04-18] MEDS: lithium carbonate 150mg capsule JT SCH ×2 (08:00→20:17)
[2018-04-18] MEDS: voritoxetine HBr tablet 5 MG TABLET JT SCH (08:00)
[2018-04-18] MEDS: lactobacillus rhamnosus 10,000 MMU CELLS/CAPSULE JT SCH ×2 (08:00→20:17)
[2018-04-18] MEDS: docusate sodium 100mg/10ml UD cup JT SCH ×2 (08:00→20:00)
[2018-04-18] MEDS: levoFLOXACIN-Levaquin 500mg/D5 100 ML IV SCH (09:43)
[2018-04-18 11:00] VITALS: BP 99/67
[2018-04-18] MEDS: enoxaparin 40mg/0.4ml syringe SUBCUT SCH (11:22)
[2018-04-18 15:00] VITALS: BP 92/72
[2018-04-18] MEDS: acetaminophen 325mg/10.15ml oral unit dose solution JT PRN (17:16)
[2018-04-18 19:00] VITALS: BP 97/59
[2018-04-18 23:00] VITALS: BP 110/72
[2018-04-19] MEDS: LORazepam 1 MG tablet JT SCH ×4 (02:26→20:38)
[2018-04-19 03:00] VITALS: BP 104/69
[2018-04-19 07:21] VITALS: BP 109/66
[2018-04-19] MEDS: lithium carbonate 150mg capsule JT SCH ×2 (09:16→20:39)
[2018-04-19] MEDS: docusate sodium 100mg/10ml UD cup JT SCH ×2 (09:18→20:38)
[2018-04-19] MEDS: voritoxetine HBr tablet 5 MG TABLET JT SCH (09:18)
[2018-04-19] MEDS: lactobacillus rhamnosus 10,000 MMU CELLS/CAPSULE JT SCH ×2 (09:19→20:38)
[2018-04-19] MEDS: enoxaparin 40mg/0.4ml syringe SUBCUT SCH (09:21)
[2018-04-19 11:00] VITALS: BP 113/66
[2018-04-19 15:00] VITALS: BP 110/68
[2018-04-19 19:00] VITALS: BP 106/70
[2018-04-19 23:00] VITALS: BP 118/79
[2018-04-20] MEDS: LORazepam 1 MG tablet JT SCH ×4 (01:36→20:39)
[2018-04-20 03:00] VITALS: BP 115/68
[2018-04-20 06:00] VITALS: BP 116/74
[2018-04-20] MEDS: lactobacillus rhamnosus 10,000 MMU CELLS/CAPSULE JT SCH ×2 (07:31→20:39)
[2018-04-20] MEDS: lithium carbonate 150mg capsule JT SCH ×2 (07:31→20:39)
[2018-04-20] MEDS: voritoxetine HBr tablet 5 MG TABLET JT SCH (07:31)
[2018-04-20] MEDS: docusate sodium 100mg/10ml UD cup JT SCH ×2 (07:31→18:41)
[2018-04-20] MEDS: enoxaparin 40mg/0.4ml syringe SUBCUT SCH (07:32)
[2018-04-20 11:00] VITALS: BP 119/51
[2018-04-20 15:00] VITALS: BP 111/73
[2018-04-20 19:00] VITALS: BP 110/67
[2018-04-20] MEDS: acetaminophen 325mg/10.15ml oral unit dose solution JT PRN (20:38)
[2018-04-20 23:00] VITALS: BP 106/58
[2018-04-21] MEDS: LORazepam 1 MG tablet JT SCH ×4 (02:16→19:54)
[2018-04-21 03:00] VITALS: BP 102/67
[2018-04-21 06:00] VITALS: BP 111/62
[2018-04-21] MEDS: voritoxetine HBr tablet 5 MG TABLET JT SCH (08:45)
[2018-04-21] MEDS: docusate sodium 100mg/10ml UD cup JT SCH ×2 (08:46→19:54)
[2018-04-21] MEDS: lithium carbonate 150mg capsule JT SCH ×2 (08:46→19:55)
[2018-04-21] MEDS: lactobacillus rhamnosus 10,000 MMU CELLS/CAPSULE JT SCH ×2 (08:46→19:55)
[2018-04-21] MEDS: enoxaparin 40mg/0.4ml syringe SUBCUT SCH (08:47)
[2018-04-21 11:00] VITALS: BP 118/64
[2018-04-21 15:00] VITALS: BP 113/70
[2018-04-21 19:06] VITALS: BP 100/70
[2018-04-21] MEDS ORDERED: BISA10SU60 RC (20:28)
[2018-04-21] MEDS ORDERED: DOCU-28 PO (20:28)
[2018-04-21] MEDS ORDERED: DRON2.5C PO (20:28)
[2018-04-21] MEDS ORDERED: MAGN400O6 JT (20:28)
[2018-04-21] MEDS ORDERED: VORT10TA PO (20:28)
[2018-04-21] MEDS ORDERED: MAG30ORA JT (20:28)
[2018-04-21] MEDS ORDERED: METO5VIA IV (20:28)
[2018-04-21] MEDS ORDERED: HYDR-4383 PO (20:28)
[2018-04-21] MEDS ORDERED: VORT5TAB JT (20:28)
[2018-04-21] MEDS ORDERED: DOCU50LI22 JT (20:28)
[2018-04-21] MEDS ORDERED: LITH150C8 JT (20:28)
[2018-04-21] MEDS ORDERED: LIT300C PO (20:28)
[2018-04-21] MEDS ORDERED: IPRA3AMP9 NEB (20:28)
[2018-04-21] MEDS ORDERED: ENOX40DI11 SUBCUT (20:28)
[2018-04-21] MEDS ORDERED: TEMA15CA JT (20:28)
[2018-04-21] MEDS ORDERED: LACT1CAP26 JT (20:28)
[2018-04-21] MEDS ORDERED: ATI1T JT (20:28)
[2018-04-21] MEDS ORDERED: POTA20LI JT (20:28)
[2018-04-21] MEDS ORDERED: ACET160O2 JT (20:28)
[2018-04-21] MEDS ORDERED: PANT-47 PO (20:28)
[2018-04-21 22:27] VITALS: BP 97/70
[2018-04-22] MEDS: LORazepam 1 MG tablet JT SCH ×2 (01:56→07:31)
[2018-04-22 02:30] VITALS: BP 112/68
[2018-04-22 06:00] VITALS: BP 112/64
[2018-04-22] MEDS: enoxaparin 40mg/0.4ml syringe SUBCUT SCH (07:31)
[2018-04-22] MEDS: docusate sodium 100mg/10ml UD cup JT SCH (07:31)
[2018-04-22] MEDS: lactobacillus rhamnosus 10,000 MMU CELLS/CAPSULE JT SCH (07:32)
[2018-04-22] MEDS: lithium carbonate 150mg capsule JT SCH (07:32)
[2018-04-22] MEDS: voritoxetine HBr tablet 5 MG TABLET JT SCH (07:32)
[2018-04-22] MEDS ORDERED: ipratropium/albuterol 3ml nebule NEB PRN (10:11)
== END 2018-04-22 10:11 | DRG 137 ==
LOC: PCU 3S 01:20
PROVIDERS: ADMIT Family Medicine; ATTEND Internal Medicine
PROC: 5A09357 Assistance with Respiratory Ventilation, Less than 24 Consecutive Hours, Continuous Positive Airway Pressure (ICD-10-PCS; 2018-04-05)
PROC: B32T1ZZ Computerized Tomography (CT Scan) of Left Pulmonary Artery using Low Osmolar Contrast (ICD-10-PCS; 2018-04-15)
PROC: B3201ZZ Computerized Tomography (CT Scan) of Thoracic Aorta using Low Osmolar Contrast (ICD-10-PCS; 2018-04-15)
PROC: B32S1ZZ Computerized Tomography (CT Scan) of Right Pulmonary Artery using Low Osmolar Contrast (ICD-10-PCS; 2018-04-15)
PROC: 0DH63UZ Insertion of Feeding Device into Stomach, Percutaneous Approach (ICD-10-PCS; principal; 2018-04-17 15:21)
DX: J69.0 Pneumonitis due to inhalation of food and vomit (principal); J96.01 Acute respiratory failure with hypoxia; G93.40 Encephalopathy, unspecified; J96.02 Acute respiratory failure with hypercapnia; E44.0 Moderate protein-calorie malnutrition; E87.0 Hyperosmolality and hypernatremia; E86.1 Hypovolemia; R32 Unspecified urinary incontinence; E78.5 Hyperlipidemia, unspecified; E86.0 Dehydration; R26.9 Unspecified abnormalities of gait and mobility; F20.2 Catatonic schizophrenia; F21 Schizotypal disorder; Z88.0 Allergy status to penicillin; Z87.440 Personal history of urinary (tract) infections; Z68.20 Body mass index [BMI] 20.0-20.9, adult
CPT/HCPCS: 36415; 36600; 49440; 71045; 71250; 71275; 74018; 80048; 80053; 80178; 81001; 82533; 82803; 82948; 83605; 83735; 83880; 84100; 84134; 84145; 84484; 85018; 85025; 85379; 85610; 85730; 87040; 87070; 93306; 94640; 94660; 94760; 97110; 97116; 97162; 97530; 99285; A4344; A4620; B4087; C1729; G0378; J0692; J1610; J1644; J1650; J1956; J2001; J2060; J2175; J2250; J2704; J2710; J3010; J3480; J3490; J7030; J7042; J7070; J7120; Q9963; Q9967

== ENCOUNTER 2018-04-22 10:13 | Inpatient (IN) | payer MEDICAID ==
[~2018-04-22 10:13] MED LIST changes: +ACET160O2 JT; +ATI1T JT; +BISA10SU60 RC; +DOCU-28 PO; +DOCU50LI22 JT; +DRON2.5C PO; +ENOX40DI11 SUBCUT; -ESCI5TAB PO; -FLUP1TAB PO; +HYDR-4383 PO; +IPRA3AMP9 NEB; +LACT1CAP26 JT; +LIT300C PO; +LITH150C8 JT; -LORA0.5T PO; +MAG30ORA JT; +MAGN400O6 JT; +METO5VIA IV; -OLAN5TAB5 PO; +PANT-47 PO; +POTA20LI JT; +TEMA15CA JT; +VORT10TA PO; +VORT5TAB JT
[2018-04-22] MEDS ORDERED: tuberculin, purif. prot. deriv. 5 units/0.1ml ID ONE (10:35)
[2018-04-22] MEDS ORDERED: acetaminophen 325mg tablet PO PRN (10:35)
[2018-04-22 10:45] VITALS: BP 125/54
[2018-04-22 11:11] LABS: CHOLESTEROL 152 MG/DL (0-200); HDL CHOLESTEROL 50 MG/DL (35-60); LDL CHOLESTEROL 92 MG/DL (50-100); TRIGLYCERIDES 87 MG/DL (20-135)
[2018-04-22] MEDS ORDERED: ipratropium/albuterol 3ml nebule NEB PRN (11:30)
[2018-04-22] MEDS ORDERED: bisacodyl 10mg suppository rectal RC PRN (11:30)
[2018-04-22] MEDS ORDERED: acetaminophen 325mg/10.15ml oral unit dose solution JT PRN ×2 (11:30)
[2018-04-22] MEDS ORDERED: mag hydrox/Alum hydrox/simeth 30ml oral suspension JT PRN (11:35)
[2018-04-22] MEDS ORDERED: temazepam 15mg capsule PO PRN (11:35)
[2018-04-22] MEDS ORDERED: metoclopramide 5 mg/ml inj IV PRN (11:35)
[2018-04-22] MEDS ORDERED: mag hydrox/Alum hydrox/simeth 30ml oral suspension PO PRN (11:35)
[2018-04-22] MEDS ORDERED: potassium Cl oral solution 20 MEQ/15 ML JT PRN ×2 (11:35→11:40)
[2018-04-22] MEDS ORDERED: temazepam 15mg capsule JT PRN (11:40)
[2018-04-22 11:41] LABS: ABG BASE EXCESS 4.9 mmol/L (-2.0-3.0); ABG HCO3 30.9 mmol/L (22.0-26.0); ABG OXYGEN SATURATION 90.9 % (95-98); ABG PCO2 (T) 49.9 mmHg (35.0-48.0); ABG PH (T) 7.407 (7.350-7.450); ABG PO2 (T) 56.3 mmHg (83-108); FCOHb 0.8 % (0.5-1.5); FLOW 5 L/min; FMetHb 0.2 % (0.3-1.12); PATIENT TEMPERATURE 36.5; TOTAL HEMOGLOBIN 14.1 G/dl (14.0-18.0)
[2018-04-22 12:05] LABS: BASOPHILS # (AUTO) 0.1 X10'3 (0-0.2); BASOPHILS % (AUTO) 0.5 % (0-1); EOSINOPHILS # (AUTO) 0.5 X10'3 (0-0.9); EOSINOPHILS % (AUTO) 3.5 % (0-6); HEMATOCRIT 41.7 % (42.0-52.0); HEMOGLOBIN 13.8 g/dl (14.0-17.9); LYMPHOCYTES # (AUTO) 1.2 X10'3 (1.1-4.8); LYMPHOCYTES % (AUTO) 8.8 % (21-51); MEAN CORPUSCULAR HEMOGLOBIN 31.2 PG (27.0-31.0); MEAN CORPUSCULAR HGB CONC 33.1 % (33.0-36.5); MEAN CORPUSCULAR VOLUME 94.1 FL (78-98); MEAN PLATELET VOLUME 9.4 FL (7.4-10.4); MONOCYTES # (AUTO) 0.9 X10'3 (0-0.9); MONOCYTES % (AUTO) 6.9 % (2-12); NEUTROPHILS # (AUTO) 10.9 X10'3 (1.8-7.7); NEUTROPHILS % (AUTO) 80.3 % (42-75); PLATELET COUNT 396 X10'3 (140-440); RED BLOOD COUNT 4.43 X10'6 (4.70-6.10); RED CELL DISTRIBUTION WIDTH 14.8 % (11.5-14.5); WHITE BLOOD COUNT 13.6 X10'3 (4.5-11.0)
[2018-04-22 12:17] LABS: ALANINE AMINOTRANSFERASE 33 U/L (12-78); ALBUMIN 2.8 G/DL (3.4-5.0); ALBUMIN/GLOBULIN RATIO 0.8 (1.1-1.5); ALKALINE PHOSPHATASE 90 IU/L (46-116); ANION GAP 5 (8-16); ASPARTATE AMINO TRANSFERASE 20 U/L (10-37); BILIRUBIN,TOTAL 0.4 MG/DL (0.1-1.0); BLOOD UREA NITROGEN 18 MG/DL (7-18); BUN/CREATININE RATIO 26.5 (5.4-32.0); CALCIUM 8.8 MG/DL (8.5-10.1); CHLORIDE 97 MMOL/L (99-107); CREATININE 0.68 MG/DL (0.60-1.10); GLUCOSE 123 MG/DL (70-104); POTASSIUM 4.1 MMOL/L (3.5-5.1); SODIUM 134 MMOL/L (135-145); TOTAL CARBON DIOXIDE 32.5 MMOL/L (24-32); TOTAL PROTEIN 6.4 G/DL (6.4-8.2); eGFR > 90 ML/MIN
[2018-04-22] MEDS ORDERED: LORazepam 1 MG tablet JT SCH (14:00)
[2018-04-22] MEDS ORDERED: lactobacillus rhamnosus 10,000 MMU CELLS/CAPSULE JT SCH (20:00)
[2018-04-22] MEDS ORDERED: lithium carbonate 150mg capsule JT SCH (20:00)
[2018-04-22] MEDS ORDERED: docusate sodium 100mg/10ml UD cup JT SCH (20:00)
[2018-04-23] MEDS ORDERED: enoxaparin 40mg/0.4ml syringe SUBCUT SCH (08:00)
[2018-04-23] MEDS ORDERED: voritoxetine HBr tablet 5 MG TABLET JT SCH (08:00)
== END 2018-04-22 12:20 | disposition short-term general hospital (02) | DRG 750 ==
LOC: EEVIPCON → ADULT MH 10:20
PROVIDERS: ADMIT Psychiatry & Neurology Psychiatry; ATTEND Psychiatry & Neurology Psychiatry
PROC: 3E0G76Z Introduction of Nutritional Substance into Upper GI, Via Natural or Artificial Opening (ICD-10-PCS; principal; 2018-04-22)
DX: F20.2 Catatonic schizophrenia (principal); E44.0 Moderate protein-calorie malnutrition; R06.82 Tachypnea, not elsewhere classified
CPT/HCPCS: 36415; 36600; 71045; 80053; 80061; 82803; 83036; 85018; 85025; 94640; 94760; J1650

== ENCOUNTER 2018-04-22 12:26 | Inpatient (IN) | payer MEDICAID ==
[~2018-04-22] VITALS: Ht 188 cm; Wt 58.8 kg
[2018-04-22] MEDS ORDERED: acetaminophen 325mg tablet PO PRN (12:40)
[2018-04-22] MEDS ORDERED: potassium Cl 20 mEq SR tablet PO PRN ×2 (12:40)
[2018-04-22] MEDS ORDERED: magnesium 4gm in 100ml NS 100 ML IV PRN (12:40)
[2018-04-22] MEDS ORDERED: magnesium hydroxide 30ml (MOM) UD suspension PO PRN (12:40)
[2018-04-22] MEDS ORDERED: potassium Cl 40MEQ/NS 500ml 500 ML IV PRN ×2 (12:40)
[2018-04-22] MEDS ORDERED: magnesium 1gm/100ml D5W IVPB 100 ML IV PRN (12:40)
[2018-04-22] MEDS ORDERED: bisacodyl 10mg suppository rectal RC PRN (12:40)
[2018-04-22] MEDS ORDERED: mag hydrox/Alum hydrox/simeth 30ml oral suspension PO PRN (12:40)
[2018-04-22] MEDS ORDERED: magnesium Cl slow-release 64mg tablet PO PRN (12:40)
[2018-04-22] MEDS ORDERED: ondansetron/PF 4mg/2ml inj IV PRN (12:40)
[2018-04-22] MEDS ORDERED: iohexol 350MG/ML 100ml bottle IV ONE (14:10)
[2018-04-22 15:00] VITALS: BP 113/64
[2018-04-22] MEDS ORDERED: LORazepam 2 mg/ml vial IV PRN (15:05)
[2018-04-22] MEDS: dextrose 5%-1/2 normal saline 1,000 ML IV SCH ×2 (15:15→22:36)
[2018-04-22] MEDS: methylPREDNISolone sod succ 125mg/2ml vial IV SCH ×2 (15:16→20:09)
[2018-04-22] MEDS: pantoprazole 40 MG vial IV SCH (15:16)
[2018-04-22] MEDS: levoFLOXACIN-Levaquin 750MG/D5 150 ML IV SCH (15:16)
[2018-04-22] MEDS: metroNIDAZOLE-Flagyl 500mg/NS 100 ML IV SCH (17:26)
[2018-04-22 19:00] VITALS: BP 122/72
[2018-04-22] MEDS: ipratropium/albuterol 3ml nebule NEB SCH ×2 (19:36→23:23)
[2018-04-22] MEDS: diatr meglu/diatrizoate 30ml oral sol.-(3 dose) bottle PO SCH (20:09)
[2018-04-22 23:00] VITALS: BP 104/73
[2018-04-23] VITALS (7 sets, daily range): BP systolic 94–123; BP diastolic 44–74
[2018-04-23] MEDS: metroNIDAZOLE-Flagyl 500mg/NS 100 ML IV SCH ×3 (01:12→16:15)
[2018-04-23] MEDS: methylPREDNISolone sod succ 125mg/2ml vial IV SCH ×3 (01:12→16:27)
[2018-04-23] MEDS: ipratropium/albuterol 3ml nebule NEB SCH ×3 (03:09→12:17)
[2018-04-23] MEDS: dextrose 5%-1/2 normal saline 1,000 ML IV SCH ×2 (04:33→21:37)
[2018-04-23 06:13] LABS: BASOPHILS % (AUTO) 0.3 % (0-1); EOSINOPHILS # (AUTO) 0.1 X10'3 (0-0.9); HEMATOCRIT 41.1 % (42.0-52.0); HEMOGLOBIN 13.8 g/dl (14.0-17.9); LYMPHOCYTES # (AUTO) 0.4 X10'3 (1.1-4.8); LYMPHOCYTES % (AUTO) 3.3 % (21-51); MEAN CORPUSCULAR HEMOGLOBIN 31.4 PG (27.0-31.0); MEAN CORPUSCULAR HGB CONC 33.6 % (33.0-36.5); MEAN CORPUSCULAR VOLUME 93.6 FL (78-98); MEAN PLATELET VOLUME 8.6 FL (7.4-10.4); MONOCYTES # (AUTO) 0.2 X10'3 (0-0.9); MONOCYTES % (AUTO) 1.4 % (2-12); NEUTROPHILS # (AUTO) 12.2 X10'3 (1.8-7.7); PLATELET COUNT 320 X10'3 (140-440); RED BLOOD COUNT 4.39 X10'6 (4.70-6.10); RED CELL DISTRIBUTION WIDTH 14.7 % (11.5-14.5)
[2018-04-23 06:34] LABS: ALANINE AMINOTRANSFERASE 35 U/L (12-78); ALBUMIN 2.8 G/DL (3.4-5.0); ALBUMIN/GLOBULIN RATIO 0.7 (1.1-1.5); ALKALINE PHOSPHATASE 84 IU/L (46-116); ANION GAP 4 (8-16); ASPARTATE AMINO TRANSFERASE 17 U/L (10-37); BILIRUBIN,TOTAL 0.3 MG/DL (0.1-1.0); BLOOD UREA NITROGEN 13 MG/DL (7-18); BUN/CREATININE RATIO 16.7 (5.4-32.0); CHLORIDE 102 MMOL/L (99-107); CREATININE 0.78 MG/DL (0.60-1.10); GLUCOSE 156 MG/DL (70-104); MAGNESIUM 2.2 MG/DL (1.5-2.4); POTASSIUM 4.9 MMOL/L (3.5-5.1); SODIUM 141 MMOL/L (135-145); TOTAL CARBON DIOXIDE 35.1 MMOL/L (24-32); TOTAL PROTEIN 6.7 G/DL (6.4-8.2); eGFR > 90 ML/MIN
[2018-04-23] MEDS: levoFLOXACIN-Levaquin 750MG/D5 150 ML IV SCH (07:38)
[2018-04-23] MEDS: diatr meglu/diatrizoate 30ml oral sol.-(3 dose) bottle PO SCH ×2 (07:39→21:00)
[2018-04-23] MEDS: enoxaparin 40mg/0.4ml syringe SUBCUT SCH (07:39)
[2018-04-23] MEDS: pantoprazole 40 MG vial IV SCH (07:39)
[2018-04-23] MEDS: K and/or MAG REPLACEMENT MC SCH (08:00)
[2018-04-23] MEDS ORDERED: ipratropium/albuterol 3ml nebule NEB PRN (11:35)
[2018-04-23] MEDS ORDERED: pantoprazole 40 MG vial IV SCH (11:35)
[2018-04-23] MEDS ORDERED: mag hydrox/Alum hydrox/simeth 30ml oral suspension JT PRN (11:35)
[2018-04-23] MEDS ORDERED: temazepam 15mg capsule JT PRN (11:35)
[2018-04-23] MEDS ORDERED: acetaminophen 325mg/10.15ml oral unit dose solution JT PRN ×2 (11:35)
[2018-04-23] MEDS: lactobacillus rhamnosus 10,000 MMU CELLS/CAPSULE JT SCH (20:14)
[2018-04-23] MEDS: lithium carbonate 150mg capsule JT SCH (20:14)
[2018-04-23] MEDS ORDERED: lithium carbonate 300mg SR tablet (LithoBID) PO SCH (21:00)
[2018-04-23] MEDS: lithium carbonate 150mg capsule PO SCH (22:26)
[2018-04-24] MEDS: metroNIDAZOLE-Flagyl 500mg/NS 100 ML IV SCH ×4 (00:57→23:58)
[2018-04-24] MEDS: methylPREDNISolone sod succ 125mg/2ml vial IV SCH ×4 (00:57→23:58)
[2018-04-24 03:00] VITALS: BP 120/60
[2018-04-24 04:22] VITALS: BP 117/64
[2018-04-24 05:45] LABS: BASOPHILS % (AUTO) 0 % (0-1); EOSINOPHILS % (AUTO) 0.1 % (0-6); HEMATOCRIT 39.8 % (42.0-52.0); HEMOGLOBIN 13.2 g/dl (14.0-17.9); LYMPHOCYTES # (AUTO) 0.5 X10'3 (1.1-4.8); LYMPHOCYTES % (AUTO) 3.2 % (21-51); MEAN CORPUSCULAR HEMOGLOBIN 31.3 PG (27.0-31.0); MEAN CORPUSCULAR HGB CONC 33.3 % (33.0-36.5); MEAN CORPUSCULAR VOLUME 94.2 FL (78-98); MEAN PLATELET VOLUME 8.2 FL (7.4-10.4); MONOCYTES # (AUTO) 0.2 X10'3 (0-0.9); MONOCYTES % (AUTO) 1.1 % (2-12); NEUTROPHILS # (AUTO) 16.3 X10'3 (1.8-7.7); NEUTROPHILS % (AUTO) 95.6 % (42-75); PLATELET COUNT 324 X10'3 (140-440); RED BLOOD COUNT 4.22 X10'6 (4.70-6.10); RED CELL DISTRIBUTION WIDTH 14.6 % (11.5-14.5)
[2018-04-24 06:01] LABS: ALANINE AMINOTRANSFERASE 37 U/L (12-78); ALBUMIN 2.7 G/DL (3.4-5.0); ALBUMIN/GLOBULIN RATIO 0.8 (1.1-1.5); ALKALINE PHOSPHATASE 82 IU/L (46-116); ANION GAP 2 (8-16); ASPARTATE AMINO TRANSFERASE 19 U/L (10-37); BILIRUBIN,TOTAL 0.3 MG/DL (0.1-1.0); BLOOD UREA NITROGEN 11 MG/DL (7-18); BUN/CREATININE RATIO 16.9 (5.4-32.0); CHLORIDE 101 MMOL/L (99-107); CREATININE 0.65 MG/DL (0.60-1.10); GLUCOSE 152 MG/DL (70-104); POTASSIUM 4.2 MMOL/L (3.5-5.1); SODIUM 138 MMOL/L (135-145); TOTAL CARBON DIOXIDE 34.7 MMOL/L (24-32); TOTAL PROTEIN 6.3 G/DL (6.4-8.2); eGFR > 90 ML/MIN
[2018-04-24 07:49] VITALS: BP 97/62
[2018-04-24] MEDS: K and/or MAG REPLACEMENT MC SCH (08:00)
[2018-04-24] MEDS: pantoprazole 40 MG vial IV SCH (10:23)
[2018-04-24] MEDS: lactobacillus rhamnosus 10,000 MMU CELLS/CAPSULE JT SCH ×2 (10:23→21:35)
[2018-04-24] MEDS: lithium carbonate 150mg capsule JT SCH ×2 (10:27→21:34)
[2018-04-24] MEDS: enoxaparin 40mg/0.4ml syringe SUBCUT SCH (10:32)
[2018-04-24] MEDS: levoFLOXACIN-Levaquin 750MG/D5 150 ML IV SCH (10:48)
[2018-04-24 11:23] VITALS: BP 110/71
[2018-04-24] MEDS: voritoxetine HBr tablet 5 MG TABLET JT SCH (13:04)
[2018-04-24] MEDS: dextrose 5%-1/2 normal saline 1,000 ML IV SCH (13:05)
[2018-04-24 18:15] VITALS: BP 103/64
[2018-04-24] MEDS: ipratropium/albuterol 3ml nebule NEB SCH ×2 (19:04→23:21)
[2018-04-24] MEDS: lithium carbonate 150mg capsule PO SCH (21:35)
[2018-04-25] VITALS: BP 109/70
[2018-04-25] MEDS: dextrose 5%-1/2 normal saline 1,000 ML IV SCH ×2 (02:13→14:01)
[2018-04-25] MEDS: ipratropium/albuterol 3ml nebule NEB SCH ×6 (03:12→22:59)
[2018-04-25 04:54] LABS: BASOPHILS # (AUTO) 0.1 X10'3 (0-0.2); BASOPHILS % (AUTO) 0.4 % (0-1); EOSINOPHILS # (AUTO) 0.2 X10'3 (0-0.9); EOSINOPHILS % (AUTO) 1.1 % (0-6); HEMATOCRIT 39.2 % (42.0-52.0); HEMOGLOBIN 13.1 g/dl (14.0-17.9); LYMPHOCYTES # (AUTO) 0.6 X10'3 (1.1-4.8); LYMPHOCYTES % (AUTO) 3.6 % (21-51); MEAN CORPUSCULAR HEMOGLOBIN 31.5 PG (27.0-31.0); MEAN CORPUSCULAR HGB CONC 33.5 % (33.0-36.5); MEAN CORPUSCULAR VOLUME 93.9 FL (78-98); MEAN PLATELET VOLUME 8.9 FL (7.4-10.4); MONOCYTES # (AUTO) 0.4 X10'3 (0-0.9); MONOCYTES % (AUTO) 2.8 % (2-12); NEUTROPHILS # (AUTO) 14.1 X10'3 (1.8-7.7); NEUTROPHILS % (AUTO) 92.1 % (42-75); PLATELET COUNT 308 X10'3 (140-440); RED BLOOD COUNT 4.18 X10'6 (4.70-6.10); RED CELL DISTRIBUTION WIDTH 15.1 % (11.5-14.5); WHITE BLOOD COUNT 15.4 X10'3 (4.5-11.0)
[2018-04-25 05:14] LABS: ALANINE AMINOTRANSFERASE 33 U/L (12-78); ALBUMIN 2.7 G/DL (3.4-5.0); ALBUMIN/GLOBULIN RATIO 0.8 (1.1-1.5); ALKALINE PHOSPHATASE 88 IU/L (46-116); ANION GAP 5 (8-16); ASPARTATE AMINO TRANSFERASE 18 U/L (10-37); BILIRUBIN,TOTAL 0.2 MG/DL (0.1-1.0); BLOOD UREA NITROGEN 15 MG/DL (7-18); CHLORIDE 101 MMOL/L (99-107); CREATININE 0.75 MG/DL (0.60-1.10); GLUCOSE 149 MG/DL (70-104); MAGNESIUM 2.1 MG/DL (1.5-2.4); POTASSIUM 4.2 MMOL/L (3.5-5.1); SODIUM 140 MMOL/L (135-145); TOTAL CARBON DIOXIDE 33.8 MMOL/L (24-32); TOTAL PROTEIN 6.3 G/DL (6.4-8.2); eGFR > 90 ML/MIN
[2018-04-25 07:30] VITALS: BP 103/61
[2018-04-25] MEDS: K and/or MAG REPLACEMENT MC SCH (08:00)
[2018-04-25] MEDS: levoFLOXACIN-Levaquin 750MG/D5 150 ML IV SCH (08:49)
[2018-04-25] MEDS: lithium carbonate 150mg capsule JT SCH ×2 (08:49→19:29)
[2018-04-25] MEDS: lactobacillus rhamnosus 10,000 MMU CELLS/CAPSULE JT SCH ×2 (08:49→19:29)
[2018-04-25] MEDS: pantoprazole 40 MG vial IV SCH (08:49)
[2018-04-25] MEDS: voritoxetine HBr tablet 5 MG TABLET JT SCH (08:50)
[2018-04-25] MEDS: enoxaparin 40mg/0.4ml syringe SUBCUT SCH (08:58)
[2018-04-25] MEDS: methylPREDNISolone sod succ 125mg/2ml vial IV SCH ×2 (09:07→17:34)
[2018-04-25] MEDS: metroNIDAZOLE-Flagyl 500mg/NS 100 ML IV SCH ×2 (10:57→17:33)
[2018-04-25 11:45] VITALS: BP 110/69
[2018-04-25 18:45] VITALS: BP 96/66
[2018-04-25] MEDS: lithium carbonate 150mg capsule PO SCH (21:40)
[2018-04-26] VITALS: BP 110/63
[2018-04-26] MEDS: metroNIDAZOLE-Flagyl 500mg/NS 100 ML IV SCH ×3 (00:29→15:38)
[2018-04-26] MEDS: ipratropium/albuterol 3ml nebule NEB SCH ×2 (02:51→07:07)
[2018-04-26 05:11] LABS: BASOPHILS # (AUTO) 0.1 X10'3 (0-0.2); BASOPHILS % (AUTO) 0.5 % (0-1); EOSINOPHILS # (AUTO) 0.2 X10'3 (0-0.9); EOSINOPHILS % (AUTO) 1.5 % (0-6); HEMATOCRIT 39.8 % (42.0-52.0); LYMPHOCYTES # (AUTO) 1.1 X10'3 (1.1-4.8); LYMPHOCYTES % (AUTO) 9.2 % (21-51); MEAN CORPUSCULAR HEMOGLOBIN 31.2 PG (27.0-31.0); MEAN CORPUSCULAR HGB CONC 32.7 % (33.0-36.5); MEAN CORPUSCULAR VOLUME 95.4 FL (78-98); MEAN PLATELET VOLUME 9.1 FL (7.4-10.4); MONOCYTES # (AUTO) 0.8 X10'3 (0-0.9); MONOCYTES % (AUTO) 6.4 % (2-12); NEUTROPHILS # (AUTO) 10.3 X10'3 (1.8-7.7); NEUTROPHILS % (AUTO) 82.4 % (42-75); PLATELET COUNT 319 X10'3 (140-440); RED BLOOD COUNT 4.17 X10'6 (4.70-6.10); RED CELL DISTRIBUTION WIDTH 14.8 % (11.5-14.5); WHITE BLOOD COUNT 12.4 X10'3 (4.5-11.0)
[2018-04-26 05:46] LABS: ALANINE AMINOTRANSFERASE 34 U/L (12-78); ALBUMIN 2.6 G/DL (3.4-5.0); ALBUMIN/GLOBULIN RATIO 0.8 (1.1-1.5); ALKALINE PHOSPHATASE 75 IU/L (46-116); ANION GAP 5 (8-16); ASPARTATE AMINO TRANSFERASE 17 U/L (10-37); BILIRUBIN,TOTAL 0.2 MG/DL (0.1-1.0); BLOOD UREA NITROGEN 16 MG/DL (7-18); BUN/CREATININE RATIO 22.2 (5.4-32.0); CALCIUM 8.8 MG/DL (8.5-10.1); CHLORIDE 102 MMOL/L (99-107); CREATININE 0.72 MG/DL (0.60-1.10); GLUCOSE 138 MG/DL (70-104); POTASSIUM 3.6 MMOL/L (3.5-5.1); SODIUM 140 MMOL/L (135-145); TOTAL CARBON DIOXIDE 33.3 MMOL/L (24-32); eGFR > 90 ML/MIN
[2018-04-26] MEDS: lactobacillus rhamnosus 10,000 MMU CELLS/CAPSULE JT SCH ×2 (07:27→20:00)
[2018-04-26] MEDS: lithium carbonate 150mg capsule JT SCH ×2 (07:27→20:01)
[2018-04-26] MEDS: enoxaparin 40mg/0.4ml syringe SUBCUT SCH (07:28)
[2018-04-26] MEDS: voritoxetine HBr tablet 5 MG TABLET JT SCH (07:29)
[2018-04-26] MEDS: K and/or MAG REPLACEMENT MC SCH (07:29)
[2018-04-26] MEDS ORDERED: pantoprazole 40mg Tablet.DR PO SCH (07:30)
[2018-04-26 07:42] VITALS: BP 100/64
[2018-04-26] MEDS: levoFLOXACIN-Levaquin 750MG/D5 150 ML IV SCH (08:37)
[2018-04-26 12:05] VITALS: BP 107/63
[2018-04-26 18:00] VITALS: BP 111/70
[2018-04-26] MEDS: lithium carbonate 150mg capsule PO SCH (21:44)
[2018-04-26 23:30] VITALS: BP 113/57
[2018-04-27] MEDS: metroNIDAZOLE-Flagyl 500mg/NS 100 ML IV SCH ×4 (00:23→23:37)
[2018-04-27] MEDS: K and/or MAG REPLACEMENT MC SCH (08:00)
[2018-04-27] MEDS: lactobacillus rhamnosus 10,000 MMU CELLS/CAPSULE JT SCH ×2 (08:18→20:58)
[2018-04-27] MEDS: lithium carbonate 150mg capsule JT SCH ×2 (08:18→20:58)
[2018-04-27] MEDS: voritoxetine HBr tablet 5 MG TABLET JT SCH (08:19)
[2018-04-27] MEDS: enoxaparin 40mg/0.4ml syringe SUBCUT SCH (08:20)
[2018-04-27] MEDS: levoFLOXACIN-Levaquin 750MG/D5 150 ML IV SCH (08:21)
[2018-04-27 09:06] VITALS: BP 108/63
[2018-04-27 11:30] VITALS: BP 100/59
[2018-04-27 20:00] VITALS: BP 110/71
[2018-04-27] MEDS: lithium carbonate 150mg capsule PO SCH (20:59)
[2018-04-28] VITALS: BP 117/72
[2018-04-28] MEDS: lactobacillus rhamnosus 10,000 MMU CELLS/CAPSULE JT SCH ×2 (07:30→20:18)
[2018-04-28] MEDS: voritoxetine HBr tablet 5 MG TABLET JT SCH (07:31)
[2018-04-28] MEDS: famotidine 20mg tablet JT SCH (07:31)
[2018-04-28] MEDS: lithium carbonate 150mg capsule JT SCH ×2 (07:31→20:19)
[2018-04-28] MEDS: enoxaparin 40mg/0.4ml syringe SUBCUT SCH (07:32)
[2018-04-28 07:39] VITALS: BP 123/68
[2018-04-28] MEDS: K and/or MAG REPLACEMENT MC SCH (08:00)
[2018-04-28] MEDS: metroNIDAZOLE-Flagyl 500mg/NS 100 ML IV SCH (08:29)
[2018-04-28] MEDS: levoFLOXACIN-Levaquin 750MG/D5 150 ML IV SCH (09:31)
[2018-04-28] MEDS: levoFLOXACIN 750MG TABLET PO SCH (11:00)
[2018-04-28 11:44] VITALS: BP 115/75
[2018-04-28] MEDS ORDERED: LEVO750T46 PEG (17:07)
[2018-04-28 20:00] VITALS: BP 107/68
[2018-04-28] MEDS: lithium carbonate 150mg capsule PO SCH (20:19)
[2018-04-29 00:14] VITALS: BP 118/70
[2018-04-29 07:00] VITALS: BP 101/66
[2018-04-29] MEDS: K and/or MAG REPLACEMENT MC SCH (08:00)
[2018-04-29] MEDS: voritoxetine HBr tablet 5 MG TABLET JT SCH (08:15)
[2018-04-29] MEDS: famotidine 20mg tablet JT SCH (08:15)
[2018-04-29] MEDS: lactobacillus rhamnosus 10,000 MMU CELLS/CAPSULE JT SCH (08:15)
[2018-04-29] MEDS: enoxaparin 40mg/0.4ml syringe SUBCUT SCH (08:16)
[2018-04-29] MEDS: lithium carbonate 150mg capsule JT SCH (08:16)
[2018-04-29] MEDS: levoFLOXACIN 750MG TABLET PO SCH (10:14)
[2018-04-29 12:28] VITALS: BP 114/60
== END 2018-04-29 14:09 | DRG 137 ==
LOC: PCU 3S 12:26 → SUR 3N 04-24 04:22 → UNDODISIN 04-26 15:25
PROVIDERS: ADMIT Internal Medicine; ATTEND Internal Medicine
DX: J69.0 Pneumonitis due to inhalation of food and vomit (principal); J96.01 Acute respiratory failure with hypoxia; E44.0 Moderate protein-calorie malnutrition; F20.2 Catatonic schizophrenia; Z88.0 Allergy status to penicillin; Z68.1 Body mass index [BMI] 19.9 or less, adult; Z79.899 Other long term (current) drug therapy
CPT/HCPCS: 36415; 71275; 74176; 80053; 80178; 82948; 83605; 83735; 85025; 87040; 87070; 94640; 94760; 97110; 97116; 97162; C9113; G0378; J1650; J1956; J2930; J3490; Q9963; Q9967

== ENCOUNTER 2018-04-28 17:30 | Inpatient (IN) | payer MEDICAID ==
[~2018-04-28] VITALS: Ht 188 cm; Wt 55.9 kg
[~2018-04-28 17:30] MED LIST changes: -BISA10SU60 RC; -DOCU-28 PO; -DOCU50LI22 JT; -HYDR-4383 PO; +LEVO750T46 PEG; -MAGN400O6 JT; -POTA20LI JT; -VORT10TA PO
[2018-04-29 14:00] VITALS: BP 115/71
[2018-04-29] MEDS ORDERED: tuberculin, purif. prot. deriv. 5 units/0.1ml ID ONE (15:55)
[2018-04-29] MEDS ORDERED: ipratropium/albuterol 3ml nebule IH PRN (16:05)
[2018-04-29] MEDS ORDERED: bisacodyl 10mg suppository rectal RC PRN (16:05)
[2018-04-29] MEDS ORDERED: mag hydrox/Alum hydrox/simeth 30ml oral suspension PO PRN (16:05)
[2018-04-29] MEDS ORDERED: magnesium hydroxide 30ml (MOM) UD suspension PO PRN (16:05)
[2018-04-29] MEDS ORDERED: ondansetron/PF 4mg/2ml inj IV PRN (16:10)
[2018-04-29 17:23] VITALS: BP_SYST 115; BP_SYST 184; BP_DIAS 71; BP_DIAS 85
[2018-04-29] MEDS: lithium carbonate 150mg capsule PO SCH ×2 (17:52→20:13)
[2018-04-29 20:00] VITALS: BP 107/75
[2018-04-29] MEDS: acetaminophen 325mg/10.15ml oral unit dose solution PEG PRN (20:09)
[2018-04-29] MEDS: lactobacillus rhamnosus 10,000 MMU CELLS/CAPSULE PO SCH (20:09)
[2018-04-30 07:30] VITALS: BP 113/68
[2018-04-30 07:40] VITALS: BP 114/68
[2018-04-30] MEDS: lactobacillus rhamnosus 10,000 MMU CELLS/CAPSULE PO SCH ×2 (08:41→20:21)
[2018-04-30] MEDS: voritoxetine HBr tablet 5 MG TABLET PO SCH (08:41)
[2018-04-30] MEDS: famotidine 20mg tablet PO SCH (08:42)
[2018-04-30] MEDS: lithium carbonate 150mg capsule PO SCH ×3 (08:42→20:22)
[2018-04-30] MEDS: acetaminophen 325mg/10.15ml oral unit dose solution PEG PRN ×2 (08:47→20:43)
[2018-04-30 08:58] LABS: CHOL/HDL RATIO 3.5 (0.00-4.99); CHOLESTEROL 155 MG/DL (0-200); HDL CHOLESTEROL 44 MG/DL (35-60); LDL CHOLESTEROL 96 MG/DL (50-100); TRIGLYCERIDES 99 MG/DL (20-135)
[2018-04-30 09:19] LABS: BASOPHILS % (AUTO) 0.2 % (0-1); EOSINOPHILS # (AUTO) 0.5 X10'3 (0-0.9); HEMATOCRIT 47.2 % (42.0-52.0); HEMOGLOBIN 15.8 g/dl (14.0-17.9); LYMPHOCYTES % (AUTO) 9.9 % (21-51); MEAN CORPUSCULAR HEMOGLOBIN 31.6 PG (27.0-31.0); MEAN CORPUSCULAR HGB CONC 33.5 % (33.0-36.5); MEAN CORPUSCULAR VOLUME 94.4 FL (78-98); MEAN PLATELET VOLUME 8.8 FL (7.4-10.4); MONOCYTES # (AUTO) 0.7 X10'3 (0-0.9); MONOCYTES % (AUTO) 7.1 % (2-12); NEUTROPHILS # (AUTO) 8.2 X10'3 (1.8-7.7); NEUTROPHILS % (AUTO) 77.8 % (42-75); PLATELET COUNT 332 X10'3 (140-440); RED CELL DISTRIBUTION WIDTH 14.6 % (11.5-14.5); WHITE BLOOD COUNT 10.5 X10'3 (4.5-11.0)
[2018-04-30] MEDS: levoFLOXACIN 750MG TABLET PO SCH (10:00)
[2018-04-30] MEDS: enoxaparin 40mg/0.4ml syringe SQ SCH (10:01)
[2018-04-30 20:00] VITALS: BP 98/60
[2018-04-30] MEDS: metroNIDAZOLE 500mg tablet PO SCH (20:21)
[2018-05-01 08:06] VITALS: BP 106/63
[2018-05-01] MEDS: acetaminophen 325mg/10.15ml oral unit dose solution PEG PRN ×2 (08:44→20:27)
[2018-05-01] MEDS: famotidine 20mg tablet PO SCH (08:44)
[2018-05-01] MEDS: lactobacillus rhamnosus 10,000 MMU CELLS/CAPSULE PO SCH ×2 (08:44→20:23)
[2018-05-01] MEDS: metroNIDAZOLE 500mg tablet PO SCH ×2 (08:44→20:24)
[2018-05-01] MEDS: lithium carbonate 150mg capsule PO SCH ×2 (08:44→20:24)
[2018-05-01] MEDS: enoxaparin 40mg/0.4ml syringe SQ SCH (08:45)
[2018-05-01] MEDS: voritoxetine HBr tablet 5 MG TABLET PO SCH (09:31)
[2018-05-01] MEDS: levoFLOXACIN 750MG TABLET PO SCH (12:38)
[2018-05-01 19:00] VITALS: BP 103/67
[2018-05-02] MEDS: temazepam 15mg capsule PO PRN (00:02)
[2018-05-02 07:37] VITALS: BP 89/54
[2018-05-02 08:00] VITALS: BP 105/54
[2018-05-02] MEDS: voritoxetine HBr tablet 5 MG TABLET PO SCH (08:11)
[2018-05-02] MEDS: lithium carbonate 150mg capsule PO SCH ×3 (08:12→20:11)
[2018-05-02] MEDS: famotidine 20mg tablet PO SCH (08:12)
[2018-05-02] MEDS: lactobacillus rhamnosus 10,000 MMU CELLS/CAPSULE PO SCH ×2 (08:12→20:11)
[2018-05-02] MEDS: metroNIDAZOLE 500mg tablet PO SCH ×2 (08:12→20:10)
[2018-05-02] MEDS: enoxaparin 40mg/0.4ml syringe SQ SCH (08:13)
[2018-05-02] MEDS: levoFLOXACIN 750MG TABLET PO SCH (13:07)
[2018-05-02] MEDS: acetaminophen 325mg/10.15ml oral unit dose solution PEG PRN (13:08)
[2018-05-02 19:00] VITALS: BP 111/66
[2018-05-03 00:03] VITALS: BP 110/72
[2018-05-03] MEDS: temazepam 15mg capsule PO PRN ×2 (01:11→21:10)
[2018-05-03 08:00] VITALS: BP 118/69
[2018-05-03] MEDS: lactobacillus rhamnosus 10,000 MMU CELLS/CAPSULE PO SCH ×2 (08:40→21:11)
[2018-05-03] MEDS: metroNIDAZOLE 500mg tablet PO SCH ×2 (08:40→21:11)
[2018-05-03] MEDS: voritoxetine HBr tablet 5 MG TABLET PO SCH (08:40)
[2018-05-03] MEDS: lithium carbonate 150mg capsule PO SCH ×3 (08:40→21:11)
[2018-05-03] MEDS: famotidine 20mg tablet PO SCH (08:41)
[2018-05-03] MEDS: enoxaparin 40mg/0.4ml syringe SQ SCH (08:41)
[2018-05-03] MEDS: levoFLOXACIN 750MG TABLET PO SCH (12:30)
[2018-05-03 19:00] VITALS: BP 100/62
[2018-05-04 08:00] VITALS: BP 100/72
[2018-05-04] MEDS: voritoxetine HBr tablet 5 MG TABLET PO SCH (08:30)
[2018-05-04] MEDS: metroNIDAZOLE 500mg tablet PO SCH ×2 (08:30→20:31)
[2018-05-04] MEDS: acetaminophen 325mg/10.15ml oral unit dose solution PEG PRN (08:30)
[2018-05-04] MEDS: famotidine 20mg tablet PO SCH (08:30)
[2018-05-04] MEDS: lactobacillus rhamnosus 10,000 MMU CELLS/CAPSULE PO SCH ×2 (08:30→20:31)
[2018-05-04] MEDS: enoxaparin 40mg/0.4ml syringe SQ SCH (08:31)
[2018-05-04] MEDS: lithium carbonate 150mg capsule PO SCH ×3 (08:32→20:31)
[2018-05-04] MEDS: levoFLOXACIN 750MG TABLET PO SCH (12:04)
[2018-05-04 19:53] VITALS: BP 92/53
[2018-05-04] MEDS: temazepam 15mg capsule PO PRN (20:31)
[2018-05-05 07:57] VITALS: BP 118/73
[2018-05-05] MEDS: enoxaparin 40mg/0.4ml syringe SQ SCH (08:39)
[2018-05-05] MEDS: voritoxetine HBr tablet 5 MG TABLET PO SCH (08:40)
[2018-05-05] MEDS: lithium carbonate 150mg capsule PO SCH ×3 (08:40→21:00)
[2018-05-05] MEDS: famotidine 20mg tablet PO SCH (08:40)
[2018-05-05] MEDS: lactobacillus rhamnosus 10,000 MMU CELLS/CAPSULE PO SCH ×2 (08:40→20:00)
[2018-05-05 19:55] VITALS: BP 110/63
[2018-05-06 08:00] VITALS: BP 100/59
[2018-05-06] MEDS: lithium carbonate 150mg capsule PO SCH ×3 (09:15→20:14)
[2018-05-06] MEDS: voritoxetine HBr tablet 5 MG TABLET PO SCH (09:15)
[2018-05-06] MEDS: lactobacillus rhamnosus 10,000 MMU CELLS/CAPSULE PO SCH ×2 (09:15→20:14)
[2018-05-06] MEDS: famotidine 20mg tablet PO SCH (09:15)
[2018-05-06] MEDS: enoxaparin 40mg/0.4ml syringe SQ SCH (09:16)
[2018-05-06 19:00] VITALS: BP 100/56
[2018-05-06] MEDS: acetaminophen 325mg/10.15ml oral unit dose solution PEG PRN (20:15)
[2018-05-07] MEDS: temazepam 15mg capsule PO PRN (00:30)
[2018-05-07 07:32] VITALS: BP 114/78
[2018-05-07] MEDS: lactobacillus rhamnosus 10,000 MMU CELLS/CAPSULE PO SCH (08:12)
[2018-05-07] MEDS: famotidine 20mg tablet PO SCH (08:12)
[2018-05-07] MEDS: enoxaparin 40mg/0.4ml syringe SQ SCH (08:12)
[2018-05-07] MEDS: voritoxetine HBr tablet 5 MG TABLET PO SCH (08:12)
[2018-05-07] MEDS: acetaminophen 325mg/10.15ml oral unit dose solution PEG PRN (08:17)
[2018-05-07 17:56] VITALS: BP 124/64
[2018-05-07 17:58] LABS: BASOPHILS # (AUTO) 0.1 X10'3 (0-0.2); BASOPHILS % (AUTO) 0.3 % (0-1); EOSINOPHILS # (AUTO) 0.2 X10'3 (0-0.9); HEMATOCRIT 42.3 % (42.0-52.0); HEMOGLOBIN 14.2 g/dl (14.0-17.9); LYMPHOCYTES # (AUTO) 0.7 X10'3 (1.1-4.8); MEAN CORPUSCULAR HEMOGLOBIN 31.6 PG (27.0-31.0); MEAN CORPUSCULAR HGB CONC 33.6 % (33.0-36.5); MEAN PLATELET VOLUME 8.8 FL (7.4-10.4); MONOCYTES # (AUTO) 0.8 X10'3 (0-0.9); MONOCYTES % (AUTO) 3.6 % (2-12); NEUTROPHILS % (AUTO) 92.1 % (42-75); PLATELET COUNT 262 X10'3 (140-440); RED CELL DISTRIBUTION WIDTH 14.9 % (11.5-14.5); WHITE BLOOD COUNT 21.8 X10'3 (4.5-11.0)
[2018-05-07 18:13] LABS: ALANINE AMINOTRANSFERASE 41 U/L (12-78); ALBUMIN 2.8 G/DL (3.4-5.0); ALBUMIN/GLOBULIN RATIO 0.8 (1.1-1.5); ALKALINE PHOSPHATASE 98 IU/L (46-116); ANION GAP 1 (8-16); ASPARTATE AMINO TRANSFERASE 23 U/L (10-37); BILIRUBIN,TOTAL 0.4 MG/DL (0.1-1.0); BLOOD UREA NITROGEN 17 MG/DL (7-18); BUN/CREATININE RATIO 32.7 (5.4-32.0); CALCIUM 9.2 MG/DL (8.5-10.1); CHLORIDE 97 MMOL/L (99-107); CREATININE 0.52 MG/DL (0.60-1.10); GLUCOSE 147 MG/DL (70-104); POTASSIUM 4.4 MMOL/L (3.5-5.1); SODIUM 136 MMOL/L (135-145); TOTAL CARBON DIOXIDE 38.2 MMOL/L (24-32); TOTAL PROTEIN 6.5 G/DL (6.4-8.2); eGFR > 90 ML/MIN
[2018-05-07 19:00] VITALS: BP 126/73
[2018-05-07] MEDS ORDERED: FAMO20TA8 PO (19:18)
== END 2018-05-07 19:42 | disposition short-term general hospital (02) | DRG 750 ==
LOC: UNDOADMIN 17:30 → ADULT MH 17:30
PROVIDERS: ADMIT Psychiatry & Neurology Psychiatry; ATTEND Family Medicine
PROC: 3E02340 Introduction of Influenza Vaccine into Muscle, Percutaneous Approach (ICD-10-PCS; principal; 2018-04-30)
PROC: 3E0436Z Introduction of Nutritional Substance into Central Vein, Percutaneous Approach (ICD-10-PCS; 2018-04-30)
DX: F20.2 Catatonic schizophrenia (principal); J96.90 Respiratory failure, unspecified, unspecified whether with hypoxia or hypercapnia; J69.0 Pneumonitis due to inhalation of food and vomit; E44.0 Moderate protein-calorie malnutrition; Z68.1 Body mass index [BMI] 19.9 or less, adult; Z74.01 Bed confinement status; Z79.02 Long term (current) use of antithrombotics/antiplatelets; Z93.1 Gastrostomy status; Z23 Encounter for immunization; Z88.0 Allergy status to penicillin; Z79.899 Other long term (current) drug therapy
CPT/HCPCS: 36415; 71045; 80053; 80061; 82948; 83605; 84134; 84145; 85025; 87040; 87077; 94760; 97116; 97162; 97530; J1650; J3490; Q2037